=== PATIENT | female | born 1960 | race Caucasian/White ===

== ENCOUNTER 2022-09-19 15:45 | Inpatient (IN) ==
--- NOTE | 2022-09-19 17:05 | XRay Report ---
XR chest 1V not portable HISTORY: Sepsis COMPARISON: Chest 08/29/2022. FINDINGS: No pneumothorax. No pleural effusions. A few bibasilar linear densities persist and favor s ubsegmental atelectasis are scarring. The heart remains mildly enlarged. There is a diffusely elevate d interstitium without focal lung consolidations to suggest a pneumonia. This remains unchanged. Ther e are degenerative changes within the shoulders. IMPRESSION: No significant change compared to the prior study. No acute process. ACT 112: Negative or not required by law. Electronically signed by: Joe Dover M.D. 09/19/2022 5:04 PM
[2022-09-19 17:56] LABS: Basophils # (auto) 0.04 K/uL (0-0.2); Basophils % (auto) 0.4 %; Eosinophils # (auto) 0.16 K/uL (0-0.50); Eosinophils % (auto) 1.7 %; Hematocrit (blood only) 32.8 % (37.0-47.0); Hemoglobin 10.8 g/dl (12.0-16.0); Immature Granulocytes # (auto) 0.04 K/uL (0.01-0.20); Immature Granulocytes % (auto) 0.4 %; Lymphocytes # (auto) 1.09 K/uL (1.2-3.4); Lymphocytes % (auto) 11.7 %; Mean Corpuscular Hemoglobin 30.4 pg (25.0-34.0); Mean Corpuscular Hgb Conc 32.9 g/dL (32.0-36.0); Mean Corpuscular Volume 92.4 fL (80.0-100.0); Monocytes # (auto) 0.57 K/uL (0.11-0.59); Monocytes % (auto) 6.1 %; Neutrophils # (auto) 7.39 K/uL (1.40-6.50); Neutrophils % (auto) 79.7 %; Platelet Count 410 K/uL (130-400); RDW Coefficient of Variation 12.5 % (11.5-14.5); RDW Standard Deviation 41.8 fL (36.4-46.3); Red Blood Count 3.55 M/uL (4.20-5.40); White Blood Count 9.29 K/ul (4.8-10.8)
[2022-09-19 18:03] LABS: Alanine Aminotransferase 26 U/L (7-52); Albumin Level 4.3 gm/dl (3.4-5.0); Alkaline Phosphatase 91 U/L (34-104); Anion Gap 8 (3-11); Aspartate Aminotransferase 30 U/L (13-39); BUN Creatinine Ratio 19.4 (10-20); Bilirubin,Total 0.5 mg/dl (0.2-1.0); Blood Urea Nitrogen 19 mg/dl (6-23); Calcium 10.4 mg/dl (8.6-10.3); Carbon Dioxide 32 mmol/L (21-32); Chloride 93 mmol/L (98-107); Est GFR (African American) 72.2 ml/min; Est GFR (Non-African American) 62.3 ml/min; Globulin 4.1 gm/dl (2.5-4.0); Glucose 101 mg/dl (70-99(Fasting)); Magnesium 1.9 mg/dl (1.7-2.4); Sodium 133 mmol/L (136-145); Total Protein 8.4 gm/dl (6.0-8.3)
[2022-09-19 18:15] LABS: INR 1.1 (0.9-1.1); Partial Thromboplastin Time 27.1 Seconds (21.0-31.0); Prothrombin Time 12.1 Seconds (9.0-12.0)
[2022-09-19] MEDS ORDERED: VANCOMYCIN HCL 2,750 MG in SODIUM CHLORIDE 0.9% 500 ML IV ONE (18:51)
[2022-09-19] MEDS ORDERED: VANCOMYCIN CONSULT ACTIVE PRN (18:51)
[2022-09-19] MEDS ORDERED: cefTRIAXone SODIUM 2,000 MG/70 ML BAG IV STA (18:51)
--- NOTE | 2022-09-19 18:56 | Emergency Department Note ---
Impression & Plan Cellulitis of right leg, Failure of outpatient treatment ED Provider Note Name: PRERNA BAKER Age: 62 Sex: F Arrives Via: Walk-In Informant: Patient ED Provider: Yaakov Reza MD Chief Complaint: Right leg infection Impression: As per impressions above Medical Decision Makin-year-old female with extensive past medical history who had a right knee replacement 2 weeks ago. Initially doing well for the first week and then developed increasing erythema over the right lower leg. Was seen in outside hospital where negative DVT study was done along with starting IV vancomycin and oral amoxicillin/cefoxitin. Continued worsening of erythema and she was seen by her orthopedic surgeon team. She was advised to come to the ER for IV antibiotics and admission. On arrival patient has diffuse erythema of the right leg consistent with cellulitis. She does not have significant pain on range of motion of the right knee there is no drainage from the wound and seems unlikely that the knee itself is infected at this point. Extensive laboratory work-up is unremarkable evidence of sepsis. Given failure of outpatient antibiotics and the degree of cellulitis she has I do agree that hospitalization is indicated. She was given empiric IV antibiotics. She does not require extensive fluid resuscitation at this time. She is comfortable staying in the hospital. Prior Medical Record and Triage/Nursing Notes reviewed by Me External chart reviewed by me including recent hospitalization records and orthopedic notes. Differentials:Cellulitis, DVT, intra-articular infection, sepsis, electrolyte imbalance, allergic reaction, arterial occlusion, many other pathologies considered Vital Signs: reviewed and remarkable for no significant abnormalities Interventions: Vancomycin IV, Rocephin IV Labs:Reviewed and remarkable for no significant abnormalities EKG: As per my interpretation. Indication sepsis concern. Normal sinus rhythm 84 bpm QTc of 432. There is no ectopy nor ischemia. When compared to an EKG of August 29, 2022 there is no significant change. Consults:[place]. [place] [facility] [place] agrees with plan for IV antibiotics and hospitalization. Dr. Castillo of the [facility] service for hospitalization Plan: Disposition:Hospitalization. Condition: Fair History of Present Illness:62-year-old female arrives for evaluation of right leg pain. Patient had a right knee replacement 2 weeks ago at this facility. She notes that she been doing well up until about 4 days ago. Noted increasing right leg swelling, erythema and pain. She was seen at [facility] [place] well or they did an ultrasound of the leg and told her there was no DVT. They gave her a dose of vancomycin and started her on amoxicillin and sent her home to be seen by orthopedics in the next morning. She has been seen by Ortho who advised she come to the ER for IV antibiotics and hospitalization. Patient notes she has a fair amount of pain with ambulation but does not have much pain at rest and took a dose of her Oxy IR about 2 hours ago with good improvement. While laying in bed she denies significant pain. She does note history of some back issues but denies them being any worse than normal. Does not have any fevers, chills, chest pain, shortness of breath abdominal pain, back pain or other concerning signs or symptoms. She said no recent falls, trauma, injuries. Patient denies any specific knee pain per se but rather just the entire leg hurts when she walks around. Past History:Bipolar disorder, aortic stenosis, osteoarthritis, chronic oxygen use, hypertension, sleep apnea, COPD, Vitals:Blood Pressure: 173/71, Pulse 81, RR 22, T 36.8C, O2 94% on 2L NC Physical Exam: GENERAL: Patient is well appearing and in mild distress. RESPIRATORY: No dyspnea. Clear to auscultation and equal bilaterally. No wheeze, no rhonchi. CARDIOVASCULAR: Regular rate and rhythm.No murmurs, rubs, gallops appreciated. GASTROINTESTINAL: Abdomen soft, non-tender, no peritonitis.Bowel sounds positive.No masses appreciated. EXTREMITIES: Swollen erythematous right leg with diffuse cellulitic findings primarily of the right lower leg, knee, right medial thigh. Anterior knee replacement incision with cherry intact no drainage. She has decent range of motion of the right knee without significant pain. Cap refill remains intact distally. She has no crepitus or significant pain to palpation. Palpation of pulses is noted on both sides. NEUROLOGIC: Alert and oriented, no focal neurologic deficit appreciated SKIN: No rash, no jaundice, no diaphoresis. PSYCH: Appropriate GCS: 15 ED Course: Times/Reassessments: Patient stable throughout she declines any pain medications denies any specific knee pain but just discomfort of the leg in general. Agreeable to hospitalization Yaakov Reza MD Past Med/Surg History Medical History (Updated 09/19/22 @ 23:41 by Yaakov Reza MD) Anxiety and depression Aortic stenosis Bicuspid AV- follows with [facility] Cardio Asthma uses rescue inhaler before exertion Bipolar disorder Chronic obstructive pulmonary disease At baseline Chronic pain Degenerative disc disease History of attempted suicide no current problems>follows with mental telehealth>([facility]; [facility]) History of COVID-19 03/2021>hospitalized for 2 weeks at [place] *result of needing oxygen 15/09 Hypertension Hypoglycemia No diabetes or prediabetes per patient Kidney disease follows nephrology in [place]>stage 2 On home oxygen therapy 4l NC Rheumatoid arthritis Follows with rheum- Dr Farrell- Brian Sleep apnea cpap SOB (shortness of breath) on exertion Surgical History (Updated 09/10/22 @ 09:13 by Teodoro Beal PA-C) History of back surgery anterior and posterior lumbar laminectomy and fusion (2 surgeries) History of bunionectomy rt/left History of section X2 History of colonoscopy History of dilatation and curettage History of repair of ACL RIGHT History of tooth extraction Hx of chest tube placement - SPONTANEOUS PNEUMOTHORAX; NO ISSUES SINCE Hx of sinus surgery X 4 Status post total right knee replacement using cement [place] teeth removed Family History Father Family history of diabetes mellitus Other No family history of adverse response to anesthesia Social History Smoking Status: Former smoker Second Hand Exposure: Yes (as a child); Do You Dip or Chew Tobacco: No; Hx Alcohol Use: Yes Alcohol type: hard liquor Preferred Language: Panamanian Communication Ability: Effective Visual Impairment: No Limitations 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 Beliefs That Will Affect Care: None Current Living Situation: Alone Feels Safe at Home: Yes Assistive Devices: Oxygen - Continuous and Walker Allergies Allergies Allergy/AdvReac Type Severity Reaction Status Date / Time levofloxacin [From Levaquin] Allergy Intermediate Rash Verified 09/19/22 19:16 clarithromycin [From Biaxin] AdvReac Mild Gastrointestinal Verified 09/19/22 19:16 Upset lamotrigine [From Lamictal] AdvReac Mild TREMORS Verified 09/19/22 19:16 perphenazine AdvReac Mild TREMORS Verified 09/19/22 19:16 Home Meds Home Medications Medication Instructions Recorded Confirmed montelukast 10 mg tablet 10 mg PO QAM 10/28/17 09/19/22 (Singulair) albuterol sulfate 90 mcg/actuation 1 inh inhalation QID PRN sob 08/19/22 09/19/22 aerosol inhaler aripiprazole 5 mg tablet (Abilify) 5 mg PO QAM 08/19/22 09/19/22 buprenorphine 15 mcg/hour weekly 1 patch transdermal Q7D 08/19/22 09/19/22 transdermal patch calcium carbonate 600 mg-vitamin 1 tab PO BID 08/19/22 09/19/22 D3 5 mcg (200 unit) tablet cholecalciferol (vitamin D3) 50 50 mcg PO BID 08/19/22 09/19/22 mcg (2,000 unit) tablet (Vitamin D3) cyclobenzaprine 10 mg tablet 10 mg PO TID PRN Pain 08/19/22 09/19/22 folic acid 1 mg tablet 5 mg PO QAM 08/19/22 09/19/22 hydroxychloroquine 200 mg tablet See Rx Instructions .Route .COMPLEX 08/19/22 09/19/22 (Plaquenil) immune glob,gamm(IgG) 10 %-pro-IgA IV 08/19/22 0 to 50 mcg/mL intravenous solution (Privigen) irbesartan 300 mg tablet 300 mg PO QAM 08/19/22 09/19/22 levocetirizine 5 mg tablet 5 mg PO HS 08/19/22 09/19/22 magnesium 250 mg tablet 500 mg PO HS 08/19/22 09/19/22 metoprolol succinate 50 mg 100 mg PO QAM 08/19/22 09/19/22 tablet,extended release 24 hr ryuuisin-nvyo-bfde 8 mg-folic 400 1 tab PO QAM 08/19/22 09/19/22 mcg-K 50 mcg-lutein 300 mcg tablet (Multivitamin Women 50 Plus) sulfasalazine 500 mg tablet 1,000 mg PO BID 08/19/22 09/19/22 zinc 50 mg capsule 50 mg PO QAM 08/19/22 09/19/22 hydrochlorothiazide 25 mg tablet 25 mg PO QAM 09/05/22 09/19/22 acetaminophen 500 mg tablet 1,000 mg PO Q8H PRN Pain 09/19/22 09/19/22 (Tylenol Extra Strength) gabapentin 300 mg capsule See Rx Instructions .Route .COMPLEX 09/19/22 09/19/22 gabapentin 600 mg tablet See Rx Instructions .Route .COMPLEX 09/19/22 09/19/22 oxycodone 5 mg tablet 5 mg PO .Q4-6H PRN Pain 09/19/22 09/19/22 rivaroxaban 10 mg tablet (Xarelto) 10 mg PO QAM 09/19/22 09/19/22 venlafaxine 75 mg capsule,extended 75 mg PO DAILY 09/19/22 09/19/22 release 24 hr Previous Rx's Medication Instructions Recorded cefadroxil 500 mg capsule 500 mg PO BID #28 caps 09/10/22 naloxone 4 mg/actuation nasal 1 spray intranasal Q3M PRN opioid 09/10/22 spray (Narcan) overdose #2 ea Results & Data (ED) Vital Signs Vital Signs - 24 hr 09/19/22 16:07 09/19/22 19:13 09/19/22 20:00 Temperature 36.8 C Temperature Source Temporal Artery Scan Pulse Rate 81 Pulse Rate [Apical] 70 Respiratory Rate 22 16 Respiratory Effort / Characteristics Non-Labored Spontaneous Respiratory Depth Normal Blood Pressure 173/71 H Blood Pressure [Right Arm] 150/55 H Blood Pressure Mean 105 Blood Pressure Mean [Right Arm] 86 Pulse Oximetry 94 97 Oxygen Delivery Method Room Air Room Air Room Air Sepsis Recent Fever Within 48 Hours No Sepsis New/Unexplained Change in Mental Status N/A Sepsis Action Taken by Nursing No Action Required 09/19/22 20:18 Temperature Temperature Source Pulse Rate 74 Pulse Rate [Apical] Respiratory Rate Respiratory Effort / Characteristics Respiratory Depth Blood Pressure Blood Pressure [Right Arm] Blood Pressure Mean Blood Pressure Mean [Right Arm] Pulse Oximetry Oxygen Delivery Method Sepsis Recent Fever Within 48 Hours Sepsis New/Unexplained Change in Mental Status Sepsis Action Taken by Nursing Laboratory Data 09/19/22 17:17 09/19/22 17:22 Lab Results 09/19/22 09/19/22 09/19/22 Range/Units 17:17 17:17 17:17 WBC 9.29 (4.8-10.8) K/ul RBC 3.55 L (4.20-5.40) M/uL Hgb 10.8 L (12.0-16.0) g/dl Hct 32.8 L (37.0-47.0) % MCV 92.4 (80.0-100.0) fL MCH 30.4 (25.0-34.0) pg MCHC 32.9 (32.0-36.0) g/dL RDW Std Deviation 41.8 (36.4-46.3) fL RDW Coeff of Paty 12.5 (11.5-14.5) % Plt Count 410 H (130-400) K/uL MPV 9.0 L (9.4-12.4) fL Immature Gran % (Auto) 0.4 % Neut % (Auto) 79.7 % Lymph % (Auto) 11.7 % [place] % (Auto) 6.1 % Eos % (Auto) 1.7 % Baso % (Auto) 0.4 % Neut # (Auto) 7.39 H (1.40-6.50) K/uL Lymph # (Auto) 1.09 L (1.2-3.4) K/uL Caswell # (Auto) 0.57 (0.11-0.59) K/uL Eos # (Auto) 0.16 (0-0.50) K/uL Baso # (Auto) 0.04 (0-0.2) K/uL Immature Gran # (Auto) 0.04 (0.01-0.20) K/uL PT 12.1 H (9.0-12.0) Seconds INR 1.1 (0.9-1.1) APTT 27.1 (21.0-31.0) Seconds PTT Ratio 1.0 Sodium (136-145) mmol/L Potassium (3.5-5.1) mmol/L Chloride (98-107) mmol/L Carbon Dioxide (21-32) mmol/L Anion Gap (3-11) BUN (6-23) mg/dl Creatinine (0.6-1.2) mg/dl Est Cr Clr Drug Dosing Est GFR ( Amer) ml/min Est GFR (Non-Af Amer) ml/min BUN/Creatinine Ratio (10-20) Glucose (70-99(Fasting)) mg/dl Lactate 1.4 (0.4-2.0) mmol/L Calcium (8.6-10.3) mg/dl Magnesium (1.7-2.4) mg/dl Total Bilirubin (0.2-1.0) mg/dl AST (13-39) U/L ALT (7-52) U/L Alkaline Phosphatase (34-104) U/L Troponin I High Sens (0-14) pg/ml Total Protein (6.0-8.3) gm/dl Albumin (3.4-5.0) gm/dl Globulin (2.5-4.0) gm/dl Albumin/Globulin Ratio (0.9-2) Procalcitonin (0-0.5) ng/ml SARS-CoV-2, RNA, NAAT (NEGATIVE) 09/19/22 09/19/22 09/19/22 Range/Units 17:17 17:22 19:16 WBC (4.8-10.8) K/ul RBC (4.20-5.40) M/uL Hgb (12.0-16.0) g/dl Hct (37.0-47.0) % MCV (80.0-100.0) fL MCH (25.0-34.0) pg MCHC (32.0-36.0) g/dL RDW Std Deviation (36.4-46.3) fL RDW Coeff of Paty (11.5-14.5) % Plt Count (130-400) K/uL MPV (9.4-12.4) fL Immature Gran % (Auto) % Neut % (Auto) % Lymph % (Auto) % [place] % (Auto) % Eos % (Auto) % Baso % (Auto) % Neut # (Auto) (1.40-6.50) K/uL Lymph # (Auto) (1.2-3.4) K/uL Caswell # (Auto) (0.11-0.59) K/uL Eos # (Auto) (0-0.50) K/uL Baso # (Auto) (0-0.2) K/uL Immature Gran # (Auto) (0.01-0.20) K/uL PT (9.0-12.0) Seconds INR (0.9-1.1) APTT (21.0-31.0) Seconds PTT Ratio Sodium 133 L (136-145) mmol/L Potassium 4.0 (3.5-5.1) mmol/L Chloride 93 L (98-107) mmol/L Carbon Dioxide 32 (21-32) mmol/L Anion Gap 8 (3-11) BUN 19 (6-23) mg/dl Creatinine 0.98 (0.6-1.2) mg/dl Est Cr Clr Drug Dosing Not Reportable Est GFR ( Amer) 72.2 ml/min Est GFR (Non-Af Amer) 62.3 ml/min BUN/Creatinine Ratio 19.4 (10-20) Glucose 101 H (70-99(Fasting)) mg/dl Lactate (0.4-2.0) mmol/L Calcium 10.4 H (8.6-10.3) mg/dl Magnesium 1.9 (1.7-2.4) mg/dl Total Bilirubin 0.5 (0.2-1.0) mg/dl AST 30 (13-39) U/L ALT 26 (7-52) U/L Alkaline Phosphatase 91 (34-104) U/L Troponin I High Sens 5.0 (0-14) pg/ml Total Protein 8.4 H (6.0-8.3) gm/dl Albumin 4.3 (3.4-5.0) gm/dl Globulin 4.1 H (2.5-4.0) gm/dl Albumin/Globulin Ratio 1.0 (0.9-2) Procalcitonin < 0.05 (0-0.5) ng/ml SARS-CoV-2, RNA, NAAT NEGATIVE (NEGATIVE) Administered Medications Morphine Sulfate (Morphine Sulfate 2 Mg/Ml Carp) 2 mg IV Q4H PRN PRN Reason: Pain(5+) Stop: 10/03/22 21:16 Last Admin: 09/19/22 23:23 Dose: 2 mg Documented By: AURELIO Discontinued Medications Vancomycin HCl 2,750 mg/ (Sodium Chloride) 555 mls @ 200 mls/hr IV NOW ONE Stop: 09/19/22 21:20 Last Admin: 09/19/22 19:27 Dose: 200 mls/hr Documented By: WCS Ceftriaxone Sodium (Rocephin) 2,000 mg in 70 mls @ 140 mls/hr IV NOW STA Stop: 09/19/22 19:20 Last Infusion: 09/19/22 22:43 Dose: 0 mls/hr Documented By: Admin: 09/19/22 19:05 Dose: 140 mls/hr Documented By: SUMA Miscellaneous (Patient's Height &/Or Weight Needed) 1 each N/A ONE STA Stop: 09/19/22 21:25 Last Admin: 09/19/22 21:30 Dose: 1 each Documented By: WCS Imaging Data Radiologist's Impression: Chest X-Ray 09/19/22 16:12 XR chest 1V not portable HISTORY: Sepsis COMPARISON: Chest 08/29/2022. FINDINGS: No pneumothorax. No pleural effusions. A few bibasilar linear densities persist and favor subsegmental atelectasis are scarring. The heart remains mildly enlarged. There is a diffusely elevated interstitium without focal lung consolidations to suggest a pneumonia. This remains unchanged. There are degenerative changes within the shoulders. IMPRESSION: No significant change compared to the prior study. No acute process. ACT 112: Negative or not required by law. Electronically signed by: Joe Dover M.D. 09/19/2022 5:04 PM Discharge Plan Visit Data Chief Complaint: Infection, Wound Stated Complaint: KNEE REPLACEMENT INFECTED; REF BY DOC ED Provider: Yaakov Reza Discharge Problem: Cellulitis of right leg, Failure of outpatient treatment Patient Disposition: Admitted As Inpatient Discharge Instructions Interventions: ED Discharge Assessment Last Done: 09/19/22 21:40
--- NOTE | 2022-09-19 20:34 | History & Physical Report ---
Date of Service September 19, 2022 Assessment & Plan (1) Cellulitis of right leg: Plan: -Admit to med/surge -Currently stable -Started to develop erythema, swelling and tenderness of the RLE on 09/16 -Has continued to progress, was seen in [facility] ED on 09/17 and was given IV antibiotics, discharged on amoxicillin -Patient confirmed multiple times that she was told her RLE Venous Doppler was negative for DVT, has not missed a dose of Xarelto -S/P Vancomycin and Ceftriaxone in the ED -Will switch her to Daptomycin and Cefepime due to increased BMI and immunocompromised status -Hold Sulfasalazine and Plaquenil while treating acute infection -Follow blood cultures -If she were to acutely decompensation or RLE would become acutely more severe would obtain STAT CT of the RLE with contrast -Orthopedics consulted, no plans for emergent OR, continue IV abx -Continue xrarelto for DVT PPX -Will continue home Butrans patch with IV morphine PRN for severe pain -PRN narcan ordered for narcotic overdose - diet -AM CBC, BMP, PT/INR (2) Chronic pain: Plan: -Continue home Butrans patch, changed q7Days (today is day # 2) -Continue gabapentin -Tylenol for mild pain and fever -PRN IV morphine for severe pain (3) Status post total right knee replacement using cement: Plan: -Seen in ortho clinic today -Surgical site appears intact and without drainage -Ortho consult placed (4) Bipolar disorder: Plan: -Continue abilify (5) Rheumatoid arthritis: Plan: -Hold sulfasalazine and Plaquenil for now (6) Hypertension: Plan: -Stable -Continue HCTZ and metoprolol (7) Sleep apnea: Plan: -HS CPAP ordered (8) Chronic obstructive pulmonary disease: Plan: -On baseline 4L NC -Continue O2 at 4L NC for goal SpO2 of 88-92% Plan The patient was discussed with Dr. Castillo at the time of the adsmission History of Present Illness Chief Complaint: concern for cellulitis Primary Care Provider: Allegra BradySondra Little is a 62yo female with PMHx significant for COPD (on chronic O2, 4L since COVID infection), MAGNOLIA, bicuspic aortic valve, HTN, RA, bipolar disorder, and S/P Right Total Knee Arthroplasty(Right), removal deep hardware(peek interference screw) from previous ACL repair with Dr. Jacobsen on 09/08 who presented to the [facility] ED at the recommendation of the Orthopedic clinic due to concerns for RLE infection. In the ED vitals were stable. Labs were significant for a platelet count of 410, sodium of 133, negative procal and covid 19 negative. Chest xray was read as "No significant change compared to the prior study. No acute process.". The ED staff spoke with Orthopedic Surgery who recently evaluated the patient. No concerns for intraarticular infection at this time, does not recommend additional imaging for now. Recommends IV antibiotics, they will continue to follow. Prior to admission the patient was given a dose of Vancomycin and ceftriaxone. At the time of the exam the patient was lying in bed in no acute distress. She states that she had been doing well post-op and had been taking her Xarelto for DVT PPX and Cefadroxil since her initial discharge. Starting on 09/16 the patient started to develop progressively worsening erythema, warm, and tenderness of the RLE. She states that as of today the erythema had spread up to her right mid thigh. She went to the [facility] ED on 09/17 where they gave her a dose of Vancomycin and another antibiotic she cannot remember the name of. She confirmed that they obtained a RLE venous doppler at that visit which was negative. They discharged her on Amoxicillin at that time. She was seen today in the Orthopedic clinic, due to concerns for progressively worsening cellulitis she was sent to the ED. She denies recent fever, chills,chest pain, SOB, abd pain, nausea, vomiting, diarrhea, paresthesias, dysuria, hematuria, melena, and recent trauma. She is a full code and would want her daughter to make medical decisions for her if she cannot make them herself. Please refer to Dr. Castillo's attestation for any changes to the treatment plan Allergies Allergy/AdvReac Type Severity Reaction Status Date / Time levofloxacin [From Levaquin] Allergy Intermediate Rash Verified 09/19/22 19:16 clarithromycin [From Biaxin] AdvReac Mild Gastrointestinal Verified 09/19/22 19:16 Upset lamotrigine [From Lamictal] AdvReac Mild TREMORS Verified 09/19/22 19:16 perphenazine AdvReac Mild TREMORS Verified 09/19/22 19:16 Home Medications Medication Instructions Recorded Confirmed Type montelukast 10 mg tablet 10 mg PO QAM 10/28/17 09/19/22 History (Singulair) albuterol sulfate 90 mcg/actuation 1 inh inhalation QID PRN sob 08/19/22 09/19/22 History aerosol inhaler aripiprazole 5 mg tablet (Abilify) 5 mg PO QAM 08/19/22 09/19/22 History buprenorphine 15 mcg/hour weekly 1 patch transdermal Q7D 08/19/22 09/19/22 History transdermal patch calcium carbonate 600 mg-vitamin 1 tab PO BID 08/19/22 09/19/22 History D3 5 mcg (200 unit) tablet cholecalciferol (vitamin D3) 50 50 mcg PO BID 08/19/22 09/19/22 History mcg (2,000 unit) tablet (Vitamin D3) cyclobenzaprine 10 mg tablet 10 mg PO TID PRN Pain 08/19/22 09/19/22 History folic acid 1 mg tablet 5 mg PO QAM 08/19/22 09/19/22 History hydroxychloroquine 200 mg tablet See Rx Instructions .Route .COMPLEX 08/19/22 09/19/22 History (Plaquenil) immune glob,gamm(IgG) 10 %-pro-IgA IV 08/19/22 History 0 to 50 mcg/mL intravenous solution (Privigen) irbesartan 300 mg tablet 300 mg PO QAM 08/19/22 09/19/22 History levocetirizine 5 mg tablet 5 mg PO HS 08/19/22 09/19/22 History magnesium 250 mg tablet 500 mg PO HS 08/19/22 09/19/22 History metoprolol succinate 50 mg 100 mg PO QAM 08/19/22 09/19/22 History tablet,extended release 24 hr [id number] 8 mg-folic 400 1 tab PO QAM 08/19/22 09/19/22 History mcg-K 50 mcg-lutein 300 mcg tablet (Multivitamin Women 50 Plus) sulfasalazine 500 mg tablet 1,000 mg PO BID 08/19/22 09/19/22 History zinc 50 mg capsule 50 mg PO QAM 08/19/22 09/19/22 History hydrochlorothiazide 25 mg tablet 25 mg PO QAM 09/05/22 09/19/22 History naloxone 4 mg/actuation nasal 1 spray intranasal Q3M PRN opioid 09/10/22 09/19/22 Rx spray (Narcan) overdose #2 ea acetaminophen 500 mg tablet 1,000 mg PO Q8H PRN Pain 09/19/22 09/19/22 History (Tylenol Extra Strength) gabapentin 300 mg capsule See Rx Instructions .Route .COMPLEX 09/19/22 09/19/22 History gabapentin 600 mg tablet See Rx Instructions .Route .COMPLEX 09/19/22 09/19/22 History oxycodone 5 mg tablet 5 mg PO .Q4-6H PRN Pain 09/19/22 09/19/22 History rivaroxaban 10 mg tablet (Xarelto) 10 mg PO QAM 09/19/22 09/19/22 History venlafaxine 75 mg capsule,extended 75 mg PO DAILY 09/19/22 09/19/22 History release 24 hr linezolid 600 mg tablet 600 mg PO BID 5 days #10 tabs 09/23/22 Rx sennosides 8.6 mg-docusate sodium 1 tab PO QAM #30 tabs 09/24/22 Rx 50 mg tablet (Senokot-S) Past Med/Surg History Medical History Anxiety and depression Aortic stenosis Bicuspid AV- follows with [facility] Cardio Asthma uses rescue inhaler before exertion Bipolar disorder Chronic obstructive pulmonary disease At baseline Chronic pain Degenerative disc disease History of attempted suicide no current problems>follows with mental telehealth>([facility]; [facility]) History of COVID-19 03/2021>hospitalized for 2 weeks at [facility] *result of needing oxygen 15/09 Hypertension Hypoglycemia No diabetes or prediabetes per patient Kidney disease follows nephrology in [place]>stage 2 On home oxygen therapy 4l NC Rheumatoid arthritis Follows with rheum- Dr Farrell- Brian Sleep apnea cpap SOB (shortness of breath) on exertion Surgical History History of back surgery anterior and posterior lumbar laminectomy and fusion (2 surgeries) History of bunionectomy rt/left History of section X2 History of colonoscopy History of dilatation and curettage History of repair of ACL RIGHT History of tooth extraction Hx of chest tube placement - SPONTANEOUS PNEUMOTHORAX; NO ISSUES SINCE Hx of sinus surgery X 4 Status post total right knee replacement using cement [place] teeth removed Family History Father Family history of diabetes mellitus Other No family history of adverse response to anesthesia Social History Smoking Status: Never smoker Second Hand Exposure: Yes (as a child); Do You Dip or Chew Tobacco: No; Hx Alcohol Use: No Hx Substance Use: No Preferred Language: [place] Communication Ability: Effective Visual Impairment: No Limitations Rn Angiography Required: No Beliefs That Will Affect Care: None Current Living Situation: Alone Feels Safe at Home: Yes Assistive Devices: Cane, Oxygen - Continuous and Walker Physical Exam Physical Exam: Physical Exam: General: In no acute distress, stated age, chronically ill appearing but non- toxic HEENT: Normocephalic, atraumatic, no scleral icterus, pupils around round, symmetrical, and reactive to light, moist mucus membranes, trachea midline, no thyromegaly Chest/Pulm: No respiratory distress, symmetrical chest expansion, distant breath sounds Cardiac: RRR, systolic murmur noted Abdomen: Negative for ascites and bruising, normoactive bowel sounds, soft, non-tender to palpation throughout Musculoskeletal: Right knee surgical site appears intact and without signs of drainage, no fluctuance or effusion around the right knee Extremities: Radial, dorsalis pedis, and posterior tibial pulses are intact and symmetrical, RLE currently more swollen than the left Skin: Erythema of the RLE running from the right distal foot up to the mid thigh, skin is warm to the touch Neuro: Alert and oriented to person, place, month, year, and president, no focal defects, no tremors noted Psych: No acute distress, calm and cooperative during the exam Results & Data Results & Data Vital Signs (Past 12 Hours) Vital Signs Temp Pulse Pulse Resp BP BP Pulse Ox 09/19/22 20:18 74 09/19/22 20:00 09/19/22 19:13 70 16 150/55 H 97 09/19/22 16:07 36.8 C 81 22 173/71 H 94 O2 Del Method 09/19/22 20:18 09/19/22 20:00 Room Air 09/19/22 19:13 Room Air 09/19/22 16:07 Room Air Laboratory Results Abnormal lab results 09/19/22 09/19/22 09/19/22 Range/Units 17:17 17:17 17:22 RBC 3.55 L (4.20-5.40) M/uL Hgb 10.8 L (12.0-16.0) g/dl Hct 32.8 L (37.0-47.0) % Plt Count 410 H (130-400) K/uL MPV 9.0 L (9.4-12.4) fL Neut # (Auto) 7.39 H (1.40-6.50) K/uL Lymph # (Auto) 1.09 L (1.2-3.4) K/uL PT 12.1 H (9.0-12.0) Seconds Sodium 133 L (136-145) mmol/L Chloride 93 L (98-107) mmol/L Glucose 101 H (70-99(Fasting)) mg/dl Calcium 10.4 H (8.6-10.3) mg/dl Total Protein 8.4 H (6.0-8.3) gm/dl Globulin 4.1 H (2.5-4.0) gm/dl Diagnostic Findings Chest X-Ray 09/19/22 16:12 XR chest 1V not portable HISTORY: Sepsis COMPARISON: Chest 08/29/2022. FINDINGS: No pneumothorax. No pleural effusions. A few bibasilar linear densities persist and favor subsegmental atelectasis are scarring. The heart remains mildly enlarged. There is a diffusely elevated interstitium without focal lung consolidations to suggest a pneumonia. This remains unchanged. There are degenerative changes within the shoulders. IMPRESSION: No significant change compared to the prior study. No acute process. ACT 112: Negative or not required by law. Electronically signed by: Joe Dover M.D. 09/19/2022 5:04 PM ECG Additional Comments: Normal sinus rhythm Normal ECG When compared with ECG of 29-AUG-2022 12:04, No significant change was found Code Status & VTE Plan Code Status Full code VTE Prophylaxis Plan VTE Prophylaxis will be ordered: Yes Supervising Physician Co-Signing Physician Notes Patient seen and examined, chart reviewed, case discussed with Donte Shaver PA-C and I agree with the assessment and plan as above except as otherwise noted Labs and images reviewed Florencia is seen at the bedside. Has history of COPD on chronic oxygen, hypertension, RA, MAGNOLIA, and history of right knee arthroplasty, prior ACL repair, with interference screw removal with Dr. Hamilton 09/08 who presents for right lower extremity cellulitis. Patient has been on cefadroxil for antibiotic prophylaxis and Xarelto for DVT prophylaxis since her procedure. Over the last 4 days she has had worsening and spreading erythema, warmth, and tenderness of her right lower extremity which is now up to her mid thigh. This did not improve with an outpatient dose of vancomycin at OSH. She has not had fever/chills/sweats/chest pain. She does not have a leukocytosis. CRP is elevated, procalcitonin is negative. Patient had been seen in Ortho office as an outpatient prior. Case was reviewed with Ortho, additional imaging not recommended at this time. Will broaden antibiotics given immunosuppression and failing outpatient treatment, continue daptomycin and cefepime at this time. CRP is trended. PG Care Time/CCT Total # of Minutes Spent Total Time Spent with Patient: Total time spent is greater than 50% in coordination of care (as documented) at patient's floor/unit and/or counseling patient: C[place] [address] INT INP/OBS CARE 3/75MIN Patient Type Established Medical Decision Making High Complexity Diagnoses Cellulitis of right leg L03.115 Chronic pain G89.29 Status post total right knee replacement using cement Z96.651 Bipolar disorder F31.9 Rheumatoid arthritis M06.9 Hypertension I10 Sleep apnea G47.30 Chronic obstructive pulmonary disease J44.9
[2022-09-19] MEDS ORDERED: NALOXONE HCL 0.4 MG/1 ML VIAL/CARP IV PRN (21:17)
[2022-09-19] MEDS ORDERED: CEFEPIME 20 ML IV STA (21:21)
[2022-09-19] MEDS ORDERED: Patient's HEIGHT &/or WEIGHT Needed STA (21:24)
[2022-09-19] MEDS ORDERED: ALBUTEROL HFA 8 GM INHALER INH PRN (22:40)
[2022-09-19] MEDS: MoRPHine SULFATE 2 MG/ML CARP IV PRN (23:23)
[2022-09-19] MEDS: GABAPENTIN 300 MG CAP PO SCH (23:35)
[2022-09-19] MEDS: GABAPENTIN 600 MG TAB PO SCH (23:35)
[2022-09-19] MEDS: MAGNESIUM OXIDE 400 MG TAB PO SCH (23:36)
[2022-09-19 23:37] LABS: C Reactive Protein 9.01 mg/dl (0-0.5)
[2022-09-20] MEDS: POLYETHYLENE (MIRALAX) 17 GM PACK PO PRN (00:43)
[2022-09-20 02:02] LABS: Appearance Urine Clear (Clear); Bilirubin Urine Negative (Negative); Blood Urine Negative (Negative); Color Urine Yellow; Glucose Urine UA Negative (Negative); Ketones Urine Negative (Negative); Leukocyte Esterase Urine Negative (Negative); Nitrite Urine Negative (Negative); Protein Urine Negative (Negative); Specific Gravity Urine 1.013 (1.000-1.030); Urobilinogen Urine Negative (Negative)
[2022-09-20] MEDS: DAPTOmycin 325 MG in SYRINGE 0 ML IV SCH (05:08)
[2022-09-20] MEDS: MoRPHine SULFATE 2 MG/ML CARP IV PRN (05:35)
[2022-09-20 06:18] LABS: Basophils # (auto) 0.04 K/uL (0-0.2); Basophils % (auto) 0.7 %; Eosinophils # (auto) 0.14 K/uL (0-0.50); Eosinophils % (auto) 2.5 %; Hematocrit (blood only) 28.1 % (37.0-47.0); Hemoglobin 9.3 g/dl (12.0-16.0); Immature Granulocytes # (auto) 0.02 K/uL (0.01-0.20); Immature Granulocytes % (auto) 0.4 %; Lymphocytes # (auto) 0.83 K/uL (1.2-3.4); Lymphocytes % (auto) 14.7 %; Mean Corpuscular Hemoglobin 30.9 pg (25.0-34.0); Mean Corpuscular Hgb Conc 33.1 g/dL (32.0-36.0); Mean Corpuscular Volume 93.4 fL (80.0-100.0); Monocytes # (auto) 0.46 K/uL (0.11-0.59); Monocytes % (auto) 8.1 %; Neutrophils # (auto) 4.16 K/uL (1.40-6.50); Neutrophils % (auto) 73.6 %; Platelet Count 349 K/uL (130-400); RDW Coefficient of Variation 12.4 % (11.5-14.5); RDW Standard Deviation 42.3 fL (36.4-46.3); Red Blood Count 3.01 M/uL (4.20-5.40); White Blood Count 5.65 K/ul (4.8-10.8)
[2022-09-20 06:26] LABS: BUN Creatinine Ratio 18.4 (10-20); Calcium 9.2 mg/dl (8.6-10.3); Creatinine Clr Calc Pharmacy 83.6 ml/min; Est GFR (African American) 83.3 ml/min; Est GFR (Non-African American) 71.9 ml/min; Potassium 3.9 mmol/L (3.5-5.1)
[2022-09-20 06:37] LABS: INR 1.1 (0.9-1.1); Prothrombin Time 12.2 Seconds (9.0-12.0)
--- NOTE | 2022-09-20 08:05 | Hospitalist Progress Note ---
Date of Service September 20, 2022 Assessment & Plan (1) Cellulitis of right leg: Plan: Developed cellulitis following her TKA 09/08 (outside hospital NEGATIVE US VENOUS Doppler reported, never missed dose Xarelto) GIven IV abx at [facility] ER on 09/17 and dc on Amoxicillin with progression of cellulitis In ER, given Vanco/Rocephin Switched to Dapto/Cefepime due to BMI/immunocompromised state (had been off her plaquenil since prior surgery to note, was going to resume but hadn't yet -- holding given acute infection as discussed w/ patient) WBC wnl, afebrile Monitor blood cultures Erythema/swelling reported much improved Pain control, antiemetics Ortho consulted - not felt infection to knee, patient also denied any drainage from her knee/etc to note If continued improvement and blood cultures negative at LEAST 48 hours, likely dc for Thursday per orthopedics PT/OT consults ordered DVT proph: Xarelto (2) Chronic pain: Plan: Continue home Butrans patch, changed q7Days (today is day # 3) Continue gabapentin Tylenol for mild pain and fever , IV morphine severe pain Of note, was doing well on PO Oxycodone and not wanting to use morphine --> or thopedics already ordered oral option and will continue Bowel regimen added/to continue. monitor for any issues (3) Status post total right knee replacement using cement: Plan: -Surgical site appears intact and without drainage -Ortho consult placed as above (4) Bipolar disorder: Plan: -Continue abilify (5) Rheumatoid arthritis: Plan: -Hold sulfasalazine and Plaquenil for now -- discussed w/ patient would not resume until discussed w/ rheumatology AFTER her infection has resolved (6) Hypertension: Plan: Stable Continue HCTZ and metoprolol (7) Sleep apnea: Plan: HS CPAP ordered (8) Chronic obstructive pulmonary disease: Plan: -On baseline 4L NC but uses 3L at rest -Continue O2 at 4L NC for goal SpO2 of 88-92% Plan continued inpatient stay through Thursday, IV abx continued. Dc after blood cultures negative x 48 hours on oral Admission and Anticipated Discharge Date Admission Date: September 19, 2022 Supervising Physician Co-Signing Physician Notes The patient was not seen by me. The chart was reviewed. Case discussed with TARA Kaba. Agree with assessment and plan Subjective Eval this morning. Doing alright, redness much improved. Did not have any drainage from her incision. Confirmed she had not taken her plaquenil after discharge last time. No chest pain/shortness of breath. Not having a great bowel movement in a couple days but belly is gurgling. Bowel regimen ordered. Pain meds to added oxycodone by ortho as had been tolerating well at home and wanting to limit morphine. Anticipating hopeful dc Thursday if blood cultures negative. She is going to call ahead to arrange ride for around 01/23 and can cancel if any issues. Physical Exam Physical Exam: General: WD/WN obese female sitting up in bed, NAD HEENT: head normocephalic, atraumatic, mmm, trachea midline Resp: diminished in the bases, no w/c/r, on baseline 3L NC CV: RRR, +systolic murmur, edema to RLE from cellulitis (reported much improved), decreased tenderness, slight warmth GI: +BS, soft/NT : no jean MSK/Neuro:R TKA cherry in place, no active drainage. decreased swelling and erythema reported, decreased pain. minimal pain w/ ROM, sensation intact Psych: AOx3, cooperative with exam Results & Data Results & Data Vital Signs (Past 12 Hours) Vital Signs Temp Pulse Pulse Pulse Resp BP BP 09/20/22 07:37 37.1 C 76 18 137/75 09/19/22 22:20 09/19/22 22:20 09/19/22 22:20 09/19/22 22:20 37.3 C 81 16 165/76 H 09/19/22 21:40 78 16 150/55 H 09/19/22 21:30 78 16 150/65 H 09/19/22 21:00 88 16 150/55 H 09/19/22 20:18 74 Pulse Ox Pulse Ox O2 Del Method O2 Del Method O2 Flow Rate O2 Flow Rate 09/20/22 07:37 96 Nasal Cannula 3 09/19/22 22:20 Nasal Cannula 3 09/19/22 22:20 Nasal Cannula 3 09/19/22 22:20 94 Nasal Cannula 3 09/19/22 22:20 94 Nasal Cannula 3 09/19/22 21:40 98 Room Air 09/19/22 21:30 98 Room Air 09/19/22 21:00 09/19/22 20:18 Laboratory Results 09/20/22 09/20/22 09/20/22 Range/Units 05:21 05:21 05:21 WBC 5.65 (4.8-10.8) K/ul RBC 3.01 L (4.20-5.40) M/uL Hgb 9.3 L (12.0-16.0) g/dl Hct 28.1 L (37.0-47.0) % MCV 93.4 (80.0-100.0) fL MCH 30.9 (25.0-34.0) pg MCHC 33.1 (32.0-36.0) g/dL RDW Std Deviation 42.3 (36.4-46.3) fL RDW Coeff of Paty 12.4 (11.5-14.5) % Plt Count 349 (130-400) K/uL MPV 9.0 L (9.4-12.4) fL Immature Gran % (Auto) 0.4 % Neut % (Auto) 73.6 % Lymph % (Auto) 14.7 % [place]cho % (Auto) 8.1 % Eos % (Auto) 2.5 % Baso % (Auto) 0.7 % Neut # (Auto) 4.16 (1.40-6.50) K/uL Lymph # (Auto) 0.83 L (1.2-3.4) K/uL [place]cho # (Auto) 0.46 (0.11-0.59) K/uL Eos # (Auto) 0.14 (0-0.50) K/uL Baso # (Auto) 0.04 (0-0.2) K/uL Immature Gran # (Auto) 0.02 (0.01-0.20) K/uL ESR (0-30) mm/hr PT 12.2 H (9.0-12.0) Seconds INR 1.1 (0.9-1.1) APTT (21.0-31.0) Seconds PTT Ratio Sodium 136 (136-145) mmol/L Potassium 3.9 (3.5-5.1) mmol/L Chloride 99 (98-107) mmol/L Carbon Dioxide 29 (21-32) mmol/L Anion Gap 8 (3-11) BUN 16 (6-23) mg/dl Creatinine 0.87 (0.6-1.2) mg/dl Est Cr Clr Drug Dosing 83.6 Est GFR ( Amer) 83.3 ml/min Est GFR (Non-Af Amer) 71.9 ml/min BUN/Creatinine Ratio 18.4 (10-20) Glucose 107 H (70-99(Fasting)) mg/dl Lactate (0.4-2.0) mmol/L Calcium 9.2 (8.6-10.3) mg/dl Magnesium 2.0 (1.7-2.4) mg/dl Total Bilirubin (0.2-1.0) mg/dl AST (13-39) U/L ALT (7-52) U/L Alkaline Phosphatase (34-104) U/L Troponin I High Sens (0-14) pg/ml C-Reactive Protein (0-0.5) mg/dl Total Protein (6.0-8.3) gm/dl Albumin (3.4-5.0) gm/dl Globulin (2.5-4.0) gm/dl Albumin/Globulin Ratio (0.9-2) Procalcitonin (0-0.5) ng/ml Urine Color Urine Appearance (Clear) Urine pH (4.5-7.5) Ur Specific [place] (1.000-1.030) Urine Protein (Negative) Urine Glucose (UA) (Negative) Urine Ketones (Negative) Urine Blood (Negative) Urine Nitrite (Negative) Urine Bilirubin (Negative) Urine Urobilinogen (Negative) Ur Leukocyte Esterase (Negative) SARS-CoV-2, RNA, NAAT (NEGATIVE) 09/20/22 09/19/22 09/19/22 Range/Units 01:25 23:17 19:16 WBC (4.8-10.8) K/ul RBC (4.20-5.40) M/uL Hgb (12.0-16.0) g/dl Hct (37.0-47.0) % MCV (80.0-100.0) fL MCH (25.0-34.0) pg MCHC (32.0-36.0) g/dL RDW Std Deviation (36.4-46.3) fL RDW Coeff of Paty (11.5-14.5) % Plt Count (130-400) K/uL MPV (9.4-12.4) fL Immature Gran % (Auto) % Neut % (Auto) % Lymph % (Auto) % [place] % (Auto) % Eos % (Auto) % Baso % (Auto) % Neut # (Auto) (1.40-6.50) K/uL Lymph # (Auto) (1.2-3.4) K/uL [place] # (Auto) (0.11-0.59) K/uL Eos # (Auto) (0-0.50) K/uL Baso # (Auto) (0-0.2) K/uL Immature Gran # (Auto) (0.01-0.20) K/uL ESR 71 H (0-30) mm/hr PT (9.0-12.0) Seconds INR (0.9-1.1) APTT (21.0-31.0) Seconds PTT Ratio Sodium (136-145) mmol/L Potassium (3.5-5.1) mmol/L Chloride (98-107) mmol/L Carbon Dioxide (21-32) mmol/L Anion Gap (3-11) BUN (6-23) mg/dl Creatinine (0.6-1.2) mg/dl Est Cr Clr Drug Dosing Est GFR ( Amer) ml/min Est GFR (Non-Af Amer) ml/min BUN/Creatinine Ratio (10-20) Glucose (70-99(Fasting)) mg/dl Lactate (0.4-2.0) mmol/L Calcium (8.6-10.3) mg/dl Magnesium (1.7-2.4) mg/dl Total Bilirubin (0.2-1.0) mg/dl AST (13-39) U/L ALT (7-52) U/L Alkaline Phosphatase (34-104) U/L Troponin I High Sens (0-14) pg/ml C-Reactive Protein (0-0.5) mg/dl Total Protein (6.0-8.3) gm/dl Albumin (3.4-5.0) gm/dl Globulin (2.5-4.0) gm/dl Albumin/Globulin Ratio (0.9-2) Procalcitonin (0-0.5) ng/ml Urine Color Yellow Urine Appearance Clear (Clear) Urine pH 7.0 (4.5-7.5) Ur Specific [place] 1.013 (1.000-1.030) Urine Protein Negative (Negative) Urine Glucose (UA) Negative (Negative) Urine Ketones Negative (Negative) Urine Blood Negative (Negative) Urine Nitrite Negative (Negative) Urine Bilirubin Negative (Negative) Urine Urobilinogen Negative (Negative) Ur Leukocyte Esterase Negative (Negative) SARS-CoV-2, RNA, NAAT NEGATIVE (NEGATIVE) 09/19/22 09/19/22 09/19/22 Range/Units 17:22 17:17 17:17 WBC (4.8-10.8) K/ul RBC (4.20-5.40) M/uL Hgb (12.0-16.0) g/dl Hct (37.0-47.0) % MCV (80.0-100.0) fL MCH (25.0-34.0) pg MCHC (32.0-36.0) g/dL RDW Std Deviation (36.4-46.3) fL RDW Coeff of Paty (11.5-14.5) % Plt Count (130-400) K/uL MPV (9.4-12.4) fL Immature Gran % (Auto) % Neut % (Auto) % Lymph % (Auto) % Concho % (Auto) % Eos % (Auto) % Baso % (Auto) % Neut # (Auto) (1.40-6.50) K/uL Lymph # (Auto) (1.2-3.4) K/uL [place] # (Auto) (0.11-0.59) K/uL Eos # (Auto) (0-0.50) K/uL Baso # (Auto) (0-0.2) K/uL Immature Gran # (Auto) (0.01-0.20) K/uL ESR (0-30) mm/hr PT 12.1 H (9.0-12.0) Seconds INR 1.1 (0.9-1.1) APTT 27.1 (21.0-31.0) Seconds PTT Ratio 1.0 Sodium 133 L (136-145) mmol/L Potassium 4.0 (3.5-5.1) mmol/L Chloride 93 L (98-107) mmol/L Carbon Dioxide 32 (21-32) mmol/L Anion Gap 8 (3-11) BUN 19 (6-23) mg/dl Creatinine 0.98 (0.6-1.2) mg/dl Est Cr Clr Drug Dosing Not Reportable Est GFR ( Amer) 72.2 ml/min Est GFR (Non-Af Amer) 62.3 ml/min BUN/Creatinine Ratio 19.4 (10-20) Glucose 101 H (70-99(Fasting)) mg/dl Lactate (0.4-2.0) mmol/L Calcium 10.4 H (8.6-10.3) mg/dl Magnesium 1.9 (1.7-2.4) mg/dl Total Bilirubin 0.5 (0.2-1.0) mg/dl AST 30 (13-39) U/L ALT 26 (7-52) U/L Alkaline Phosphatase 91 (34-104) U/L Troponin I High Sens 5.0 (0-14) pg/ml C-Reactive Protein 9.01 H (0-0.5) mg/dl Total Protein 8.4 H (6.0-8.3) gm/dl Albumin 4.3 (3.4-5.0) gm/dl Globulin 4.1 H (2.5-4.0) gm/dl Albumin/Globulin Ratio 1.0 (0.9-2) Procalcitonin < 0.05 (0-0.5) ng/ml Urine Color Urine Appearance (Clear) Urine pH (4.5-7.5) Ur Specific [place] (1.000-1.030) Urine Protein (Negative) Urine Glucose (UA) (Negative) Urine Ketones (Negative) Urine Blood (Negative) Urine Nitrite (Negative) Urine Bilirubin (Negative) Urine Urobilinogen (Negative) Ur Leukocyte Esterase (Negative) SARS-CoV-2, RNA, NAAT (NEGATIVE) 09/19/22 09/19/22 Range/Units 17:17 17:17 WBC 9.29 (4.8-10.8) K/ul RBC 3.55 L (4.20-5.40) M/uL Hgb 10.8 L (12.0-16.0) g/dl Hct 32.8 L (37.0-47.0) % MCV 92.4 (80.0-100.0) fL MCH 30.4 (25.0-34.0) pg MCHC 32.9 (32.0-36.0) g/dL RDW Std Deviation 41.8 (36.4-46.3) fL RDW Coeff of Paty 12.5 (11.5-14.5) % Plt Count 410 H (130-400) K/uL MPV 9.0 L (9.4-12.4) fL Immature Gran % (Auto) 0.4 % Neut % (Auto) 79.7 % Lymph % (Auto) 11.7 % Concho % (Auto) 6.1 % Eos % (Auto) 1.7 % Baso % (Auto) 0.4 % Neut # (Auto) 7.39 H (1.40-6.50) K/uL Lymph # (Auto) 1.09 L (1.2-3.4) K/uL Concho # (Auto) 0.57 (0.11-0.59) K/uL Eos # (Auto) 0.16 (0-0.50) K/uL Baso # (Auto) 0.04 (0-0.2) K/uL Immature Gran # (Auto) 0.04 (0.01-0.20) K/uL ESR (0-30) mm/hr PT (9.0-12.0) Seconds INR (0.9-1.1) APTT (21.0-31.0) Seconds PTT Ratio Sodium (136-145) mmol/L Potassium (3.5-5.1) mmol/L Chloride (98-107) mmol/L Carbon Dioxide (21-32) mmol/L Anion Gap (3-11) BUN (6-23) mg/dl Creatinine (0.6-1.2) mg/dl Est Cr Clr Drug Dosing Est GFR ( Amer) ml/min Est GFR (Non-Af Amer) ml/min BUN/Creatinine Ratio (10-20) Glucose (70-99(Fasting)) mg/dl Lactate 1.4 (0.4-2.0) mmol/L Calcium (8.6-10.3) mg/dl Magnesium (1.7-2.4) mg/dl Total Bilirubin (0.2-1.0) mg/dl AST (13-39) U/L ALT (7-52) U/L Alkaline Phosphatase (34-104) U/L Troponin I High Sens (0-14) pg/ml C-Reactive Protein (0-0.5) mg/dl Total Protein (6.0-8.3) gm/dl Albumin (3.4-5.0) gm/dl Globulin (2.5-4.0) gm/dl Albumin/Globulin Ratio (0.9-2) Procalcitonin (0-0.5) ng/ml Urine Color Urine Appearance (Clear) Urine pH (4.5-7.5) Ur Specific [place] (1.000-1.030) Urine Protein (Negative) Urine Glucose (UA) (Negative) Urine Ketones (Negative) Urine Blood (Negative) Urine Nitrite (Negative) Urine Bilirubin (Negative) Urine Urobilinogen (Negative) Ur Leukocyte Esterase (Negative) SARS-CoV-2, RNA, NAAT (NEGATIVE) Diagnostic Findings Chest X-Ray 09/19/22 16:12 XR chest 1V not portable HISTORY: Sepsis COMPARISON: Chest 08/29/2022. FINDINGS: No pneumothorax. No pleural effusions. A few bibasilar linear densities persist and favor subsegmental atelectasis are scarring. The heart remains mildly enlarged. There is a diffusely elevated interstitium without focal lung consolidations to suggest a pneumonia. This remains unchanged. There are degenerative changes within the shoulders. IMPRESSION: No significant change compared to the prior study. No acute process. ACT 112: Negative or not required by law. Electronically signed by: Joe Dover M.D. 09/19/2022 5:04 PM PG Care Time/CCT Total # of Minutes Spent Total Time Spent with Patient: Total time spent is greater than 50% in coordination of care (as documented) at patient's floor/unit and/or counseling patient: Coding Level of Care Code 67379 SUB INP/OBS CARE 3/50MIN Diagnoses Cellulitis of right leg L03.115 Chronic pain G89.29 Status post total right knee replacement using cement Z96.651 Bipolar disorder F31.9 Rheumatoid arthritis M06.9 Hypertension I10 Sleep apnea G47.30 Chronic obstructive pulmonary disease J44.9
[2022-09-20] MEDS: METOPROLOL SUCC 50MG EXT REL TAB PO SCH (09:12)
[2022-09-20] MEDS: LOSARTAN POTASSIUM 50 MG TAB PO SCH (09:12)
[2022-09-20] MEDS: ARIPiprazole 5 MG TAB PO SCH (09:12)
[2022-09-20] MEDS: VENLAFAXINE HCL XR 75 MG CAPXR PO SCH (09:12)
[2022-09-20] MEDS: hydroCHLOROthiazide 25 MG TAB PO SCH (09:12)
[2022-09-20] MEDS: RIVAROXABAN 10 MG TABLET PO SCH (09:12)
[2022-09-20] MEDS: GABAPENTIN 600 MG TAB PO SCH ×3 (09:12→22:20)
[2022-09-20] MEDS: GABAPENTIN 300 MG CAP PO SCH ×3 (09:13→22:20)
[2022-09-20] MEDS: CHECK BUPRENORPHINE PATCH SCH ×2 (09:14→15:43)
[2022-09-20] MEDS ORDERED: oxyCODONE HCL IR 5 MG TAB (IMMEDIATE RELEASE) PO PRN (09:48)
--- NOTE | 2022-09-20 10:09 | Orthopedic Consultation ---
Date of Consultation September 20, 2022 Assessment & Plan (1) Cellulitis of right leg: Cellulitis right lower extremity status post right total knee arthroplasty. Overall improvement noted. Continue daptomycin at this time. Plan for elevation of the right lower extremity. Ice to right knee as needed. Patient may be up on a limited fashion to the bathroom and short walks. Weightbearing as tolerated. Pain management-currently on morphine 2 mg IV. We will add oxycodone 5 mg 1 or 2 tablets p.o. every 4 hours as needed. DVT prophylaxis-rivaroxaban daily. DC planning-discussion with Dr. Jacobsen's office prior to the patient's admission. With patient's recent TKA, plan for at least 48 hours of IV antib iotics with likely discharge for Thursday. History of Present Illness Reason for Consultation: Cellulitis right lower extremity Attending Physician: Javad Nash MD History of Present Illness 62-year-old female known to our practice who is status post right total knee arthroplasty by Dr. Jacobsen on 09/08/2022. Patient was having fairly normal postoperative recovery time when she noticed she began having some erythema of the lower extremity below the incision. Patient had been prescribed cefadroxil which she had been taking. The erythema began to increase and she began having increased pain in that area. She states that she was still able to bend her knee fairly well but had some discomfort over the skin areas themselves. She had gone to the emergency room 1 time per the request of her orthopedist and she was given a dose of vancomycin and then started on Augmentin. She was then seen in the office this past week. She was asked to follow-up the following day as well. When she did come in to the office yesterday, it appeared that she was not getting any better and was felt that she needed to be admitted for IV antibiotics. Currently this morning, the patient states that she has noticed a decrease in her erythema and swelling. She is not having as much pain. No new complaints. Allergies Allergy/AdvReac Type Severity Reaction Status Date / Time levofloxacin [From Levaquin] Allergy Intermediate Rash Verified 09/19/22 19:16 clarithromycin [From Biaxin] AdvReac Mild Gastrointestinal Verified 09/19/22 19:16 Upset lamotrigine [From Lamictal] AdvReac Mild TREMORS Verified 09/19/22 19:16 perphenazine AdvReac Mild TREMORS Verified 09/19/22 19:16 Home Medications Medication Instructions Recorded Confirmed Type montelukast 10 mg tablet 10 mg PO QAM 10/28/17 09/19/22 History (Singulair) albuterol sulfate 90 mcg/actuation 1 inh inhalation QID PRN sob 08/19/22 09/19/22 History aerosol inhaler aripiprazole 5 mg tablet (Abilify) 5 mg PO QAM 08/19/22 09/19/22 History buprenorphine 15 mcg/hour weekly 1 patch transdermal Q7D 08/19/22 09/19/22 History transdermal patch calcium carbonate 600 mg-vitamin 1 tab PO BID 08/19/22 09/19/22 History D3 5 mcg (200 unit) tablet cholecalciferol (vitamin D3) 50 50 mcg PO BID 08/19/22 09/19/22 History mcg (2,000 unit) tablet (Vitamin D3) cyclobenzaprine 10 mg tablet 10 mg PO TID PRN Pain 08/19/22 09/19/22 History folic acid 1 mg tablet 5 mg PO QAM 08/19/22 09/19/22 History hydroxychloroquine 200 mg tablet See Rx Instructions .Route .COMPLEX 08/19/22 09/19/22 History (Plaquenil) immune glob,gamm(IgG) 10 %-pro-IgA IV 08/19/22 History 0 to 50 mcg/mL intravenous solution (Privigen) irbesartan 300 mg tablet 300 mg PO QAM 08/19/22 09/19/22 History levocetirizine 5 mg tablet 5 mg PO HS 08/19/22 09/19/22 History magnesium 250 mg tablet 500 mg PO HS 08/19/22 09/19/22 History metoprolol succinate 50 mg 100 mg PO QAM 08/19/22 09/19/22 History tablet,extended release 24 hr [id number] 8 mg-folic 400 1 tab PO QAM 08/19/22 09/19/22 History mcg-K 50 mcg-lutein 300 mcg tablet (Multivitamin Women 50 Plus) sulfasalazine 500 mg tablet 1,000 mg PO BID 08/19/22 09/19/22 History zinc 50 mg capsule 50 mg PO QAM 08/19/22 09/19/22 History hydrochlorothiazide 25 mg tablet 25 mg PO QAM 09/05/22 09/19/22 History cefadroxil 500 mg capsule 500 mg PO BID #28 caps 09/10/22 09/19/22 Rx naloxone 4 mg/actuation nasal 1 spray intranasal Q3M PRN opioid 09/10/22 09/19/22 Rx spray (Narcan) overdose #2 ea acetaminophen 500 mg tablet 1,000 mg PO Q8H PRN Pain 09/19/22 09/19/22 History (Tylenol Extra Strength) gabapentin 300 mg capsule See Rx Instructions .Route .COMPLEX 09/19/22 09/19/22 History gabapentin 600 mg tablet See Rx Instructions .Route .COMPLEX 09/19/22 09/19/22 History oxycodone 5 mg tablet 5 mg PO .Q4-6H PRN Pain 09/19/22 09/19/22 History rivaroxaban 10 mg tablet (Xarelto) 10 mg PO QAM 09/19/22 09/19/22 History venlafaxine 75 mg capsule,extended 75 mg PO DAILY 09/19/22 09/19/22 History release 24 hr Patient History Medical History Anxiety and depression Aortic stenosis Bicuspid AV- follows with Brian Cardio Asthma uses rescue inhaler before exertion Bipolar disorder Chronic obstructive pulmonary disease At baseline Chronic pain Degenerative disc disease History of attempted suicide no current problems>follows with mental telehealth>([facility]; [facility]) History of COVID-19 03/2021>hospitalized for 2 weeks at [facility] *result of needing oxygen 15/09 Hypertension Hypoglycemia No diabetes or prediabetes per patient Kidney disease follows nephrology in [place]>stage 2 On home oxygen therapy 4l NC Rheumatoid arthritis Follows with rheum- Dr Farrell- Brian Sleep apnea cpap SOB (shortness of breath) on exertion Surgical History History of back surgery anterior and posterior lumbar laminectomy and fusion (2 surgeries) History of bunionectomy rt/left History of section X2 History of colonoscopy History of dilatation and curettage History of repair of ACL RIGHT History of tooth extraction Hx of chest tube placement - SPONTANEOUS PNEUMOTHORAX; NO ISSUES SINCE Hx of sinus surgery X 4 Status post total right knee replacement using cement [place] teeth removed Family History Father Family history of diabetes mellitus Other No family history of adverse response to anesthesia Social History Smoking Status: Never smoker Second Hand Exposure: Yes (as a child); Do You Dip or Chew Tobacco: No; Hx Alcohol Use: No Hx Substance Use: No Preferred Language: British Communication Ability: Effective Visual Impairment: No Limitations Technical Writing Lead/Mgr Required: No Beliefs That Will Affect Care: None Current Living Situation: Alone Other Information That Helps Us Care for You: No Feels Safe at Home: Yes Safety Concerns: Feels Safe At This Time Assistive Devices: Oxygen - Continuous and Walker Physical Exam Physical Exam: Patient is a 62-year-old white female who appears her stated age. She is alert and oriented x3. No acute distress. Pleasant cooperative. On examination of her right lower extremity, TKA incision has cherry in currently. There is no drainage. The wound appears to be healing well. She continues to have some mild erythema at the distal portion of the incision that extends all the way down to lower extremity to the ankle. Patient states that her erythema did go up to her thigh which has now dissipated. She also states that was going around the calf which also has gotten a little bit better. Her pain is much less today. She also feels that the swelling is down compared to yesterday. She continues with some mild edema at the knee and of the lower extremity to the ankle. She has mild tenderness on palpation of the anterior lower extremity. She has no pain on palpation of the calf. Passive dorsiflexion of the right foot does not cause any increased pain. She has good range of motion of her right ankle and has good dorsiflexion and plantarflexion at this time. Gentle range of motion of the knee at this time has minimal tenderness. Results & Data Vital Signs (Past 12 Hours) Vital Signs Temp Pulse Resp BP Pulse Ox Pulse Ox O2 Del Method 09/20/22 07:37 37.1 C 76 18 137/75 96 Nasal Cannula 09/19/22 22:20 Nasal Cannula 09/19/22 22:20 Nasal Cannula 09/19/22 22:20 94 09/19/22 22:20 37.3 C 81 16 165/76 H 94 Nasal Cannula O2 Del Method O2 Flow Rate O2 Flow Rate 09/20/22 07:37 3 09/19/22 22:20 3 09/19/22 22:20 3 09/19/22 22:20 Nasal Cannula 3 09/19/22 22:20 3
--- NOTE | 2022-09-20 10:26 | Electrocardiogram Report ---
Test Reason : Blood Pressure : / mmHG Vent. Rate : 084 BPM Atrial Rate : 084 BPM P-R Int : 134 ms QRS Dur : 086 ms QT Int : 366 ms P-R-T Axes : 036 015 020 degrees QTc Int : 432 ms Normal sinus rhythm Normal ECG When compared with ECG of 29-AUG-2022 12:04, No significant change was found Confirmed by Cody Fiore ([id number]) on 09/20/2022 10:26:43 AM Referred By: Prabhjot Jacobsen Confirmed By:Cody Fiore
[2022-09-20] MEDS: oxyCODONE HCL IR 5 MG TAB (IMMEDIATE RELEASE) PO PRN ×3 (10:46→19:41)
[2022-09-20] MEDS: DOCUSATE SODIUM/SENNA 50/8.6MG TAB PO SCH (11:36)
[2022-09-20] MEDS: MONTELUKAST SODIUM 10 MG TABLET PO SCH (11:36)
[2022-09-20] MEDS: ACETAMINOPHEN 500 MG TAB PO PRN (12:16)
[2022-09-20] MEDS: MULTIVITAMIN TAB PO SCH (13:30)
[2022-09-20] MEDS: FOLIC ACID 1 MG TAB PO SCH (13:31)
[2022-09-20] MEDS: MAGNESIUM HYDROXIDE SUSP 30 ML UDC PO PRN ×2 (15:18→22:29)
[2022-09-20] MEDS: MAGNESIUM OXIDE 400 MG TAB PO SCH (19:44)
[2022-09-20] MEDS ORDERED: MONTELUKAST SODIUM 10 MG TABLET PO SCH (21:00)
[2022-09-21] MEDS: ACETAMINOPHEN 500 MG TAB PO PRN ×2 (01:05→11:46)
[2022-09-21] MEDS: oxyCODONE HCL IR 5 MG TAB (IMMEDIATE RELEASE) PO PRN ×5 (01:05→20:40)
[2022-09-21] MEDS: CHECK BUPRENORPHINE PATCH SCH ×3 (01:08→15:23)
[2022-09-21] MEDS: DAPTOmycin 325 MG in SYRINGE 0 ML IV SCH (05:59)
[2022-09-21 07:22] LABS: Basophils # (auto) 0.04 K/uL (0-0.2); Basophils % (auto) 0.6 %; Eosinophils # (auto) 0.22 K/uL (0-0.50); Eosinophils % (auto) 3.4 %; Hemoglobin 9.6 g/dl (12.0-16.0); Immature Granulocytes # (auto) 0.03 K/uL (0.01-0.20); Immature Granulocytes % (auto) 0.5 %; Lymphocytes # (auto) 0.87 K/uL (1.2-3.4); Lymphocytes % (auto) 13.3 %; Mean Corpuscular Hemoglobin 30.7 pg (25.0-34.0); Mean Corpuscular Volume 95.8 fL (80.0-100.0); Monocytes # (auto) 0.41 K/uL (0.11-0.59); Monocytes % (auto) 6.3 %; Neutrophils # (auto) 4.99 K/uL (1.40-6.50); Neutrophils % (auto) 75.9 %; Platelet Count 336 K/uL (130-400); RDW Coefficient of Variation 12.7 % (11.5-14.5); RDW Standard Deviation 43.7 fL (36.4-46.3); Red Blood Count 3.13 M/uL (4.20-5.40); White Blood Count 6.56 K/ul (4.8-10.8)
[2022-09-21 07:38] LABS: Calcium 9.7 mg/dl (8.6-10.3); Creatinine Clr Calc Pharmacy 75.8 ml/min; Magnesium 2.1 mg/dl (1.7-2.4); Potassium 3.9 mmol/L (3.5-5.1)
[2022-09-21 07:45] LABS: INR 1.1 (0.9-1.1); Prothrombin Time 11.9 Seconds (9.0-12.0)
--- NOTE | 2022-09-21 07:46 | Hospitalist Progress Note ---
Date of Service September 21, 2022 Assessment & Plan (1) Cellulitis of right leg: Plan: Developed cellulitis following her TKA 09/08 (outside hospital NEGATIVE US VENOUS Doppler reported, never missed dose Xarelto) GIven IV abx at [facility] ER on 09/17 and dc on Amoxicillin with progression of cellulitis In ER, given Vanco/Rocephin Dapto/Cefepime due to BMI/immunocompromised state WBC wnl, remains afebrile Blood cultures remain NGTD CRP decreasing Elevation recommended Pain control SIGNIFICANT IMPROVEMENT in redness/erythema on exam PT/OT consulted -- asked to see today per patient. RN to call DVT proph: Xarelto continued If blood cultures remain NGTD overnight can plan to discharge tomorrow on oral antibiotics (2) Chronic pain: Plan: Continue home Butrans patch, changed q7Days (today is day # 4) Continue gabapentin Tylenol & PO/IV opiates ordered as needed Bowel regimen Reports controlled pain w/ ordered medications (3) Status post total right knee replacement using cement: Plan: -Surgical site appears intact and without drainage -Ortho consult placed as above, rec continuing inpatient stay x 48hr IV abx. If blood cultures remaining ngtd can dc Thursday as above (4) Bipolar disorder: Plan: Continue Abilify (5) Rheumatoid arthritis: Plan: -Hold sulfasalazine and Plaquenil for now -- discussed w/ patient would not resume until discussed w/ rheumatology AFTER her infection has resolved Symptoms stable for joint pain at present (6) Hypertension: Plan: HCTZ held temporarily this morning --> slight headache/elevation in BP reported w/ holding prior. No focal deficit on exam and this was resumed Remains on metoprolol Monitor (7) Sleep apnea: Plan: HS CPAP ordered (8) Chronic obstructive pulmonary disease: Plan: On baseline 4L NC but uses 3L at rest Continue O2 at 4L NC for goal SpO2 of 88-92% Plan continued inpatient stay on IV abx If BCx NGTD in AM, can dc on oral to complete course PT/OT consults ordered but have not been completed yet -- RN to call to see if will be by today Admission and Anticipated Discharge Date Admission Date: September 19, 2022 Supervising Physician Co-Signing Physician Notes The patient was not seen by me. The chart was reviewed. Case discussed with TARA Kaba. Agree with assessment and plan Subjective Eval this morning, redness much improved. wanting to know if therapy will be to see her as more pain to knee when not moving. Little bit of a headache, HCTZ prior placed on hold, BP checked and 160/80s, will resume HCTZ now. No fever/chills, chest pain, shortness of breath. Passing gas but wanting to move her bowels. Took something this morning but might ask for something else later if no BM. Questions/concerns addressed. Physical Exam Physical Exam: General: WD/WN obese female sitting up in bed, NAD, reporting slight headache HEENT: head normocephalic, atraumatic, mmm, trachea midline, pupils equal/reactive Resp: diminished in the bases, no w/c/r, on baseline 3L NC CV: RRR, +systolic murmur, edema to RLE from cellulitis with SIGNIFICANT improvement in erythema/warmth, decreased tenderness GI: +BS, soft/NT : no jean MSK/Neuro:R TKA cherry in place, no active drainage. decreased swelling and erythema reported, decreased pain. some pain w/ ROM, sensation intact Psych: AOx3, cooperative with exam Results & Data Results & Data Vital Signs (Past 12 Hours) Vital Signs Temp Pulse Resp BP BP Pulse Ox Pulse Ox 09/21/22 07:31 36.8 C 66 18 132/79 97 09/21/22 04:48 94 09/20/22 20:20 09/20/22 21:19 36.8 C 71 20 153/80 H 98 O2 Del Method O2 Del Method O2 Flow Rate O2 Flow Rate 09/21/22 07:31 Nasal Cannula 3 09/21/22 04:48 Nasal Cannula 3 09/20/22 20:20 Nasal Cannula, CPAP 3 09/20/22 21:19 Nasal Cannula 3 Laboratory Results 09/21/22 09/21/22 09/21/22 Range/Units 06:14 06:14 06:14 WBC 6.56 (4.8-10.8) K/ul RBC 3.13 L (4.20-5.40) M/uL Hgb 9.6 L (12.0-16.0) g/dl Hct 30.0 L (37.0-47.0) % MCV 95.8 (80.0-100.0) fL MCH 30.7 (25.0-34.0) pg MCHC 32.0 (32.0-36.0) g/dL RDW Std Deviation 43.7 (36.4-46.3) fL RDW Coeff of Paty 12.7 (11.5-14.5) % Plt Count 336 (130-400) K/uL MPV 9.0 L (9.4-12.4) fL Immature Gran % (Auto) 0.5 % Neut % (Auto) 75.9 % Lymph % (Auto) 13.3 % Crisp % (Auto) 6.3 % Eos % (Auto) 3.4 % Baso % (Auto) 0.6 % Neut # (Auto) 4.99 (1.40-6.50) K/uL Lymph # (Auto) 0.87 L (1.2-3.4) K/uL Crisp # (Auto) 0.41 (0.11-0.59) K/uL Eos # (Auto) 0.22 (0-0.50) K/uL Baso # (Auto) 0.04 (0-0.2) K/uL Immature Gran # (Auto) 0.03 (0.01-0.20) K/uL PT 11.9 (9.0-12.0) Seconds INR 1.1 (0.9-1.1) Sodium 134 L (136-145) mmol/L Potassium 3.9 (3.5-5.1) mmol/L Chloride 95 L (98-107) mmol/L Carbon Dioxide 30 (21-32) mmol/L Anion Gap 9 (3-11) BUN 20 (6-23) mg/dl Creatinine 0.98 (0.6-1.2) mg/dl Est Cr Clr Drug Dosing 75.8 ml/min Est GFR ( Amer) 72.2 ml/min Est GFR (Non-Af Amer) 62.3 ml/min BUN/Creatinine Ratio 20.4 H (10-20) Glucose 168 H (70-99(Fasting)) mg/dl Calcium 9.7 (8.6-10.3) mg/dl Magnesium 2.1 (1.7-2.4) mg/dl C-Reactive Protein 5.69 H (0-0.5) mg/dl PG Care Time/CCT Total # of Minutes Spent Total Time Spent with Patient: Total time spent is greater than 50% in coordination of care (as documented) at patient's floor/unit and/or counseling patient: Coding Level of Care Code 72010 SUB INP/OBS CARE 2/35MIN Diagnoses Cellulitis of right leg L03.115 Chronic pain G89.29 Status post total right knee replacement using cement Z96.651 Bipolar disorder F31.9 Rheumatoid arthritis M06.9 Hypertension I10 Sleep apnea G47.30 Chronic obstructive pulmonary disease J44.9
[2022-09-21 09:29] LABS: BUN Creatinine Ratio 20.4 (10-20); C Reactive Protein 5.69 mg/dl (0-0.5); Est GFR (African American) 72.2 ml/min; Est GFR (Non-African American) 62.3 ml/min
[2022-09-21] MEDS: DOCUSATE SODIUM/SENNA 50/8.6MG TAB PO SCH (09:31)
[2022-09-21] MEDS: LOSARTAN POTASSIUM 50 MG TAB PO SCH (09:31)
[2022-09-21] MEDS: RIVAROXABAN 10 MG TABLET PO SCH (09:31)
[2022-09-21] MEDS: GABAPENTIN 300 MG CAP PO SCH ×3 (09:31→20:42)
[2022-09-21] MEDS: VENLAFAXINE HCL XR 75 MG CAPXR PO SCH (09:31)
[2022-09-21] MEDS: MONTELUKAST SODIUM 10 MG TABLET PO SCH (09:31)
[2022-09-21] MEDS: GABAPENTIN 600 MG TAB PO SCH ×3 (09:31→20:41)
[2022-09-21] MEDS: FOLIC ACID 1 MG TAB PO SCH (09:32)
[2022-09-21] MEDS: METOPROLOL SUCC 50MG EXT REL TAB PO SCH (09:32)
[2022-09-21] MEDS: ARIPiprazole 5 MG TAB PO SCH (09:32)
[2022-09-21] MEDS: MULTIVITAMIN TAB PO SCH (09:32)
[2022-09-21] MEDS: hydroCHLOROthiazide 25 MG TAB PO SCH (11:07)
--- NOTE | 2022-09-21 13:06 | Orthopedic Progress Note ---
Date of Service September 21, 2022 Assessment & Plan (1) Cellulitis of right leg: Plan: Cellulitis right lower extremity status post right total knee arthroplasty. Surgical incision in total knee overall looks good. It appears that her cellulitis is continuing to improve and respond well to the IV antibiotics. Weightbearing as tolerated right lower extremity PT/OT DVT prophylaxis Medical management Continue IV antibiotics plan for likely discharge home tomorrow Admission and Anticipated Discharge Date Admission Date: September 19, 2022 Subjective Patient seen and examined, no acute events overnight. Reports that her cellulitis continues to improve. Has been out of bed ambulating Physical Exam Physical Exam: No acute distress, alert and oriented to person place and time Musculoskeletal: Right lower extremity Incision healing well there are cherry in place. There is no erythema or active drainage from the incision. Cellulitis continues to improve. Grossly neurovascular intact she is able to fire tibialis anterior gastrocsoleus complex as well as EHL. Sensation intact to light touch in the distributions of the saphenous/superficial peroneal nerve/deep peroneal nerve/tibial/sural nerve distributions Brisk capillary refill over digits and palpable dorsalis pedis and posterior tibial pulses. Results & Data Vital Signs (Past 12 Hours) Vital Signs Temp Pulse Resp BP Pulse Ox Pulse Ox O2 Del Method 09/21/22 09:55 Nasal Cannula 09/21/22 07:31 36.8 C 66 18 132/79 97 Nasal Cannula 09/21/22 04:48 94 O2 Del Method O2 Flow Rate O2 Flow Rate 09/21/22 09:55 3 09/21/22 07:31 3 09/21/22 04:48 Nasal Cannula 3
[2022-09-21] MEDS: MAGNESIUM HYDROXIDE SUSP 30 ML UDC PO PRN (18:34)
[2022-09-21] MEDS: MAGNESIUM OXIDE 400 MG TAB PO SCH (20:41)
[2022-09-22] MEDS: CHECK BUPRENORPHINE PATCH SCH ×4 (00:30→23:29)
[2022-09-22] MEDS: oxyCODONE HCL IR 5 MG TAB (IMMEDIATE RELEASE) PO PRN ×5 (04:32→23:29)
[2022-09-22] MEDS: ACETAMINOPHEN 500 MG TAB PO PRN ×2 (05:13→20:04)
[2022-09-22] MEDS: DAPTOmycin 325 MG in SYRINGE 0 ML IV SCH (05:41)
[2022-09-22] MEDS ORDERED: DIPHENOXYLATE/ATROPINE 2.5/0.025MG TAB PO PRN (07:00)
--- NOTE | 2022-09-22 07:05 | Orthopedic Progress Note ---
Date of Service September 22, 2022 Assessment & Plan (1) Cellulitis of right leg: Plan: Cellulitis right lower extremity status post right total knee arthroplasty. Case discussed with Dr. Jacobsen this morning. With continued residual erythema, he would like the patient to continue IV antibiotics in the in-hospital setting. Question possibility of doing home health with IV antibiotics if needed. Continue PT/OT protocols. Weightbearing as tolerated. DVT prophylaxis Pain management. Admission and Anticipated Discharge Date Admission Date: September 21, 2022 Subjective Ambulating in room with walker this AM. Having some initial pain in the knee with ROM but works it's way out after being OOB. RA causing her normal stiffness in the AM. Mild diarrhea since yesterday. Asking for Lomotil if needed. No other complaints this AM. Physical Exam Physical Exam: Incision continues to remain benign. Patient continues to have some residual erythema over most of her lower extremity below the knee. Continues with some mild edema. She is ambulating without pain but does have some mild discomfort with range of motion of which she attributes to her surgery. Calves are soft and nontender. Neurovascular intact. Toes are mobile Results & Data Vital Signs (Past 12 Hours) Vital Signs Temp Pulse Resp BP Pulse Ox O2 Del Method O2 Flow Rate 09/22/22 06:05 36.9 C 75 18 144/72 H 96 Nasal Cannula 3 09/21/22 20:45 Room Air 09/21/22 21:34 36.8 C 72 18 143/78 H 96 Room Air
[2022-09-22] MEDS: GABAPENTIN 600 MG TAB PO SCH ×3 (07:42→20:05)
[2022-09-22] MEDS: GABAPENTIN 300 MG CAP PO SCH ×3 (07:42→20:05)
[2022-09-22] MEDS: MONTELUKAST SODIUM 10 MG TABLET PO SCH (07:43)
[2022-09-22] MEDS: MULTIVITAMIN TAB PO SCH (07:43)
[2022-09-22] MEDS: hydroCHLOROthiazide 25 MG TAB PO SCH (07:43)
[2022-09-22] MEDS: VENLAFAXINE HCL XR 75 MG CAPXR PO SCH (07:44)
[2022-09-22] MEDS: LOSARTAN POTASSIUM 50 MG TAB PO SCH (07:44)
[2022-09-22] MEDS: RIVAROXABAN 10 MG TABLET PO SCH (07:44)
[2022-09-22] MEDS: ARIPiprazole 5 MG TAB PO SCH (07:45)
[2022-09-22] MEDS: METOPROLOL SUCC 50MG EXT REL TAB PO SCH (07:50)
[2022-09-22] MEDS: FOLIC ACID 1 MG TAB PO SCH (07:51)
[2022-09-22 07:52] LABS: Basophils # (auto) 0.03 K/uL (0-0.2); Basophils % (auto) 0.4 %; Eosinophils # (auto) 0.23 K/uL (0-0.50); Eosinophils % (auto) 2.8 %; Hematocrit (blood only) 31.5 % (37.0-47.0); Hemoglobin 10.4 g/dl (12.0-16.0); Immature Granulocytes # (auto) 0.03 K/uL (0.01-0.20); Immature Granulocytes % (auto) 0.4 %; Lymphocytes % (auto) 16.8 %; Mean Corpuscular Volume 93.8 fL (80.0-100.0); Monocytes # (auto) 0.68 K/uL (0.11-0.59); Monocytes % (auto) 8.1 %; Neutrophils # (auto) 5.98 K/uL (1.40-6.50); Neutrophils % (auto) 71.5 %; Platelet Count 412 K/uL (130-400); RDW Coefficient of Variation 12.6 % (11.5-14.5); RDW Standard Deviation 43.4 fL (36.4-46.3); Red Blood Count 3.36 M/uL (4.20-5.40); White Blood Count 8.35 K/ul (4.8-10.8)
[2022-09-22] MEDS: DOCUSATE SODIUM/SENNA 50/8.6MG TAB PO SCH (07:55)
[2022-09-22 08:10] LABS: BUN Creatinine Ratio 23.9 (10-20); Calcium 9.9 mg/dl (8.6-10.3); Creatinine Clr Calc Pharmacy 79.4 ml/min; Est GFR (African American) 77.9 ml/min; Est GFR (Non-African American) 67.2 ml/min; Magnesium 2.2 mg/dl (1.7-2.4); Potassium 4.5 mmol/L (3.5-5.1)
[2022-09-22 08:14] LABS: INR 1.1 (0.9-1.1); Prothrombin Time 11.5 Seconds (9.0-12.0)
[2022-09-22 09:14] LABS: Thyroid Stimulating Hormone 5.403 uIu/ml (0.300-4.500)
[2022-09-22 09:47] LABS: T4 Free Thyroxine 0.7 ng/dl (0.61-1.60)
[2022-09-22] MEDS ORDERED: FUROSEMIDE INJ 20 MG/2 ML VIAL IV ONE (11:47)
[2022-09-22] MEDS: MAGNESIUM OXIDE 400 MG TAB PO SCH (20:05)
--- NOTE | 2022-09-22 22:45 | Hospitalist Progress Note ---
Date of Service September 22, 2022 Assessment & Plan (1) Cellulitis of right leg: Plan: Developed cellulitis following her TKA 09/08 (outside hospital NEGATIVE US VENOUS Doppler reported, never missed dose Xarelto) GIven IV abx at [facility] ER on 09/17 and dc on Amoxicillin with progression of cellulitis In ER, given Vanco/Rocephin Dapto due to BMI/immunocompromised state Only received admit dose of cefepime. WIll monitor overnight and check inflammatory markers. Anticipate discharge tomorrow. Perhaps bactrim. Ordered a one time dose of lasix 20 mg WBC wnl, remains afebrile Blood cultures remain NGTD CRP decreasing Elevation recommended Pain control SIGNIFICANT IMPROVEMENT in redness/erythema on exam PT/OT consulted -- asked to see today per patient. RN to call DVT proph: Xarelto continued If blood cultures remain NGTD overnight can plan to discharge tomorrow on oral antibiotics (2) Chronic pain: Plan: Continue home Butrans patch, changed q7Days (today is day # 4) Continue gabapentin Tylenol & PO/IV opiates ordered as needed Bowel regimen Reports controlled pain w/ ordered medications (3) Status post total right knee replacement using cement: Plan: -Surgical site appears intact and without drainage -Ortho consult placed as above, rec continuing inpatient stay x 48hr IV abx. (4) Bipolar disorder: Plan: Continue Abilify (5) Rheumatoid arthritis: Plan: -Hold sulfasalazine and Plaquenil for now -- discussed w/ patient would not resume until discussed w/ rheumatology AFTER her infection has resolved Symptoms stable for joint pain at present (6) Hypertension: Plan: HCTZ held temporarily this morning --> slight headache/elevation in BP reported w/ holding prior. No focal deficit on exam and this was resumed Remains on metoprolol Monitor (7) Sleep apnea: Plan: HS CPAP ordered (8) Chronic obstructive pulmonary disease: Plan: On baseline 4L NC but uses 3L at rest Continue O2 at 4L NC for goal SpO2 of 88-92% Plan continued inpatient stay on IV abx If BCx NGTD in AM, can dc on oral to complete course PT/OT consults ordered but have not been completed yet -- RN to call to see if will be by today Admission and Anticipated Discharge Date Admission Date: September 21, 2022 Subjective Patient reports no new symptoms. Review of Systems Review of Systems: All systems reviewed & are unremarkable except as noted in HPI & below Physical Exam Physical Exam: General: WD/WN obese female sitting up in bed, NAD, reporting slight headache HEENT: head normocephalic, atraumatic, mmm, trachea midline, pupils equal/reactive Resp: don baseline 3L NC CV: RRR, +systolic murmur, edema to RLE from cellulitis with no signifcant improvement from yesterday, decreased te thoughnderness GI: +BS, soft/NT : no jean MSK/Neuro:R TKA cherry in place, no active drainage. decreased swelling and erythema reported, decreased pain. some pain w/ ROM, sensation intact Psych: AOx3, cooperative with exam Results & Data Results & Data Vital Signs (Past 12 Hours) Vital Signs Temp Pulse Resp BP Pulse Ox O2 Del Method O2 Flow Rate 09/22/22 20:52 138/68 09/22/22 20:08 37.0 C 72 16 159/78 H 98 Nasal Cannula 3 09/22/22 14:45 37.2 C 73 16 144/78 H 92 Nasal Cannula 2.5 PG Care Time/CCT Total # of Minutes Spent Total Time Spent with Patient: Total time spent is greater than 50% in coordination of care (as documented) at patient's floor/unit and/or counseling patient: Coding Level of Care Code 78144 SUB INP/OBS CARE 2/35MIN Diagnoses Cellulitis of right leg L03.115 Chronic pain G89.29 Status post total right knee replacement using cement Z96.651 Bipolar disorder F31.9 Rheumatoid arthritis M06.9 Hypertension I10 Sleep apnea G47.30 Chronic obstructive pulmonary disease J44.9
[2022-09-23] MEDS: oxyCODONE HCL IR 5 MG TAB (IMMEDIATE RELEASE) PO PRN ×5 (04:19→22:19)
[2022-09-23] MEDS: DAPTOmycin 325 MG in SYRINGE 0 ML IV SCH (05:49)
[2022-09-23 06:51] LABS: Hematocrit (blood only) 29.9 % (37.0-47.0); Hemoglobin 9.9 g/dl (12.0-16.0); Mean Corpuscular Hemoglobin 30.4 pg (25.0-34.0); Mean Corpuscular Hgb Conc 33.1 g/dL (32.0-36.0); Mean Corpuscular Volume 91.7 fL (80.0-100.0); Mean Platelet Volume 8.7 fL (9.4-12.4); Platelet Count 351 K/uL (130-400); RDW Coefficient of Variation 12.5 % (11.5-14.5); RDW Standard Deviation 41.7 fL (36.4-46.3); Red Blood Count 3.26 M/uL (4.20-5.40); White Blood Count 5.95 K/ul (4.8-10.8)
[2022-09-23 07:11] LABS: BUN Creatinine Ratio 26.4 (10-20); C Reactive Protein 9.36 mg/dl (0-0.5); Calcium 9.9 mg/dl (8.6-10.3); Creatinine Clr Calc Pharmacy 80.3 ml/min; Est GFR (African American) 78.9 ml/min; Est GFR (Non-African American) 68.1 ml/min; Potassium 3.9 mmol/L (3.5-5.1)
--- NOTE | 2022-09-23 08:27 | Hospitalist Progress Note ---
Date of Service September 23, 2022 Assessment & Plan (1) Cellulitis of right leg: Plan: Developed cellulitis following her TKA 09/08 (outside hospital NEGATIVE US VENOUS Doppler reported, never missed dose Xarelto) GIven IV abx at [facility] ER on 09/17 and sd on Amoxicillin with progression of cellulitis In ER, given Vanco/Rocephin Dapto due to BMI/immunocompromised state Only received admit dose of cefepime. Inflammatory markers worse at ESR 73, CRP 9.36 Ortho on consult BLood cultures remain NGTD WBC wnl/afebrile PT/OT consulted DVT proph: Xarelto lasix 20mg PO x 1 again today given stable kidney function/no significant dehydration on exam to help with swelling Consultation placed for ID to see if recs for pseudomonal coverage or not --> she follows w/ Dr Guerrero monthly for IVIG, would like records forwards at sd and can have outpt ID follow up with them as well Pain control/elevation Monitor labs/cellulitis on exam in AM (2) Chronic pain: Plan: Continue home Butrans patch, changed q7Days (today is day # 5) Continue gabapentin Tylenol & PO/IV opiates ordered as needed Bowel regimen Reports controlled pain w/ ordered medications Discussed having her reschedule her epidural injection given acute infection (3) Status post total right knee replacement using cement: Plan: -Surgical site appears intact and without drainage -Ortho consult placed as above, rec continuing inpatient stay overnight until see by them in AM (4) Bipolar disorder: Plan: Continue Abilify , mood stable (5) Rheumatoid arthritis: Plan: -Hold sulfasalazine and Plaquenil for now -- discussed w/ patient would not resume until discussed w/ rheumatology AFTER her infection has resolved Symptoms stable for joint pain at present (6) Hypertension: Plan: Continues on HCTZ, losartan, metoprolol Lasix for edema as above BP stable in setting of pain (7) Sleep apnea: Plan: HS CPAP ordered (8) Chronic obstructive pulmonary disease: Plan: On baseline 4L NC but uses 3L at rest Continue O2 at 4L NC for goal SpO2 of 88-92% Plan continued inpatient stay on IV abxDelmar to see in AM ID consulted for today to see about need for cefepime vs ability to use Bactrim PO at discharge Admission and Anticipated Discharge Date Admission Date: September 21, 2022 Subjective Eval this morning, redness about the same, slightly decreased edema. Discussed additional dose lasix again today, also consultation w/ ID. She typically follows w/ Cortez Guerrero for monthly IVIG. ALso notes f/u pain management for epidural injection. Discussed likely in setting infection would hold off on such and req she reschedule. She states seen by ortho this morning, wanting to stay overnight/cherry removed by delmar every other staple for tomorrow. Questions/concerns addressed at this time. Physical Exam Physical Exam: General: WD/WN obese female sitting up in bed, NAD HEENT: head normocephalic, atraumatic, mmm, trachea midline, pupils equal/reactive Resp: don baseline 3L NC CV: RRR, +systolic murmur, edema to RLE from cellulitis slightly improved, pulses palpable GI: +BS, soft/NT : no jean MSK/Neuro:R TKA cherry in place, no active drainage. , erythema about the same/possible slightly better but still with erythema around patella and medial knee, some pain w/ ROM, sensation intact Psych: AOx3, cooperative with exam Results & Data Results & Data Vital Signs (Past 12 Hours) Vital Signs Temp Pulse Resp BP Pulse Ox O2 Del Method O2 Flow Rate 09/23/22 07:13 36.6 C 72 16 147/80 H 98 Nasal Cannula 3 09/22/22 20:52 138/68 Laboratory Results 09/23/22 09/23/22 09/23/22 Range/Units 06:19 06:19 06:19 WBC 5.95 (4.8-10.8) K/ul RBC 3.26 L (4.20-5.40) M/uL Hgb 9.9 L (12.0-16.0) g/dl Hct 29.9 L (37.0-47.0) % MCV 91.7 (80.0-100.0) fL MCH 30.4 (25.0-34.0) pg MCHC 33.1 (32.0-36.0) g/dL RDW Std Deviation 41.7 (36.4-46.3) fL RDW Coeff of Paty 12.5 (11.5-14.5) % Plt Count 351 (130-400) K/uL MPV 8.7 L (9.4-12.4) fL ESR 73 H (0-30) mm/hr Sodium 134 L (136-145) mmol/L Potassium 3.9 (3.5-5.1) mmol/L Chloride 94 L (98-107) mmol/L Carbon Dioxide 34 H (21-32) mmol/L Anion Gap 6 (3-11) BUN 24 H (6-23) mg/dl Creatinine 0.91 (0.6-1.2) mg/dl Est Cr Clr Drug Dosing 80.3 ml/min Est GFR ( Amer) 78.9 ml/min Est GFR (Non-Af Amer) 68.1 ml/min BUN/Creatinine Ratio 26.4 H (10-20) Glucose 117 H (70-99(Fasting)) mg/dl Calcium 9.9 (8.6-10.3) mg/dl C-Reactive Protein 9.36 H (0-0.5) mg/dl PG Care Time/CCT Total # of Minutes Spent Total Time Spent with Patient: Total time spent is greater than 50% in coordination of care (as documented) at patient's floor/unit and/or counseling patient: Coding Level of Care Code 84611 SUB INP/OBS CARE 3/50MIN Diagnoses Cellulitis of right leg L03.115 Chronic pain G89.29 Status post total right knee replacement using cement Z96.651 Bipolar disorder F31.9 Rheumatoid arthritis M06.9 Hypertension I10 Sleep apnea G47.30 Chronic obstructive pulmonary disease J44.9
[2022-09-23] MEDS: ACETAMINOPHEN 500 MG TAB PO PRN ×2 (08:34→16:19)
[2022-09-23] MEDS: LOSARTAN POTASSIUM 50 MG TAB PO SCH (08:35)
[2022-09-23] MEDS: hydroCHLOROthiazide 25 MG TAB PO SCH (08:35)
[2022-09-23] MEDS: ARIPiprazole 5 MG TAB PO SCH (08:35)
[2022-09-23] MEDS: MULTIVITAMIN TAB PO SCH (08:35)
[2022-09-23] MEDS: GABAPENTIN 600 MG TAB PO SCH ×3 (08:36→20:21)
[2022-09-23] MEDS: FOLIC ACID 1 MG TAB PO SCH (08:36)
[2022-09-23] MEDS: MONTELUKAST SODIUM 10 MG TABLET PO SCH (08:36)
[2022-09-23] MEDS: DOCUSATE SODIUM/SENNA 50/8.6MG TAB PO SCH ×2 (08:36→14:28)
[2022-09-23] MEDS: METOPROLOL SUCC 50MG EXT REL TAB PO SCH (08:36)
[2022-09-23] MEDS: RIVAROXABAN 10 MG TABLET PO SCH (08:37)
[2022-09-23] MEDS: CHECK BUPRENORPHINE PATCH SCH ×2 (08:37→16:18)
[2022-09-23] MEDS: VENLAFAXINE HCL XR 75 MG CAPXR PO SCH (08:37)
[2022-09-23] MEDS: GABAPENTIN 300 MG CAP PO SCH ×3 (08:37→20:21)
--- NOTE | 2022-09-23 09:54 | Orthopedic Progress Note ---
Date of Service September 23, 2022 Assessment & Plan (1) Cellulitis of right leg: Plan: Cellulitis right lower extremity status post right total knee arthroplasty. Case discussed with Dr. Jacobsen this morning. He would like patient to stay until tomorrow. He wants to see pt and discuss staple removal/further care and likely dc to home tomorrow. CRP increased to 9 from 5 Continue PT/OT protocols. Weightbearing as tolerated. DVT prophylaxis Pain management. Admission and Anticipated Discharge Date Admission Date: September 21, 2022 Subjective Pt awake, alert. Sittin up in bed. No complaints this AM. States she received Lasix yesterday which has helped with her edema. Physical Exam Physical Exam: Incision remains benign without drainage. Less erythema today compared to yesterday of the LE below the knee. Knee still has some residual erythema around the patella and medial knee. A little less swelling in the LE. Calves are soft,NT. NV intact. Toes mobile Results & Data Vital Signs (Past 12 Hours) Vital Signs Temp Pulse Resp BP Pulse Ox O2 Del Method O2 Flow Rate 09/23/22 07:13 36.6 C 72 16 147/80 H 98 Nasal Cannula 3
[2022-09-23] MEDS ORDERED: FUROSEMIDE 20 MG TAB PO ONE (11:00)
--- NOTE | 2022-09-23 11:10 | Infectious Disease Consult ---
Date of Consultation September 23, 2022 Assessment & Plan (1) Cellulitis of right leg: Plan Micro: 09/19 BCx x2: NGTD Abx: Vanc 09/19 Ceftriaxone 09/19 Cefepime 09/20 Dapto 09/20 - present Problems: #RLE cellulitis #R TKA 09/08/22 #Levofloxacin allergy: rash 62 yo F with history of COPD (on chronic 4 L O2), MAGNOLIA, bicuspid aortic valve, HTN, RA bipolar disorder, recent R TKA, removal of deep hardware (peek interference screw) from prior ACL repair (09/08/22) who presented on 09/19 with progressive RLE erythema, warmth, tenderness, admitted with RLE cellulitis. Pt underwent R TKA due to ongoing R knee pain that failed conservative measures. Pt did well and was discharged home with on 09/12, with a course of cefadroxil 500 mg PO BID x 14 days. Starting on 09/16, she noted progressively worsening erythema, warmth, and tenderness of the RLE. Erythema involved her R knee, upper medial calf. This progressed to involve her right mid thigh on day of presentation. She presented to [facility] ED on 09/17 where they gave her a dose of vancomycin and another antibiotic that she cannot recall. Also had negative US venous doppler. She was discharged with amox/clav, which she took 2 doses of. She was seen in ortho clinic on day of presentation where they were concerned for worsening cellulitis and she was advised to present to the ED. Pt denies fevers, chills. On presentation, pt was afebrile, VSS. Labs showed WBC 9.29, ESR 71, CRP 9.01, lactate 1.4, procalcitonin<0.05. Chest x-ray negative. Pt was given vanc and ceftriaxone in the ED, one dose of cefepime, then switched to dapto alone. Ortho was consulted--felt this was cellulitis, no drainage from her incision was seen. They recommended continuation of IV dapto for at least 48 hours given recent TKA. Pt's erythema and swelling quickly improved. Recommendations: -Can continue daptomycin -On discharge, can transition to linezolid 600 mg PO q12h for an additional 5 days through 09/29/22 to complete a total 10 day course (Note that pt is on venlafaxine 75 mg PO daily, but studies suggest that risk of serotonin syndrome is very low. In addition, this is a low dose of venlafaxine and pt will be on a short course of linezolid. I discussed signs/symptoms of serotonin syndrome for her to monitor.) -Pt has requested that this note be faxed to her infectious disease physician Dr. Cortez Guerrero at [phone]. Discussed with primary team. Will sign off. Please page [facility] with further questions. Consultation Information Consultation was provided via telemedicine using two-way real-time interactive telecommunication between the patient and the telemedicine provider. For the duration of the visit, the provider was performing the assessment from a different facility than the patient. This includesuse of bluetooth stethoscope forauscultationperformed by the telepresenter that the telemedicine provider can hear if described in the physical exam. Visual Display Manager contact information: Please call [facility] [phone]. (Phone Number For Physician Use Only) After establishing a telemedicine visit, patient was: Patient was verified with two unique identifiers, Patient/authorized rep acknowledged consent and understanding and Gave permission to continue telehealth session Time Spent with Patient: Initial => 40 min History of Present Illness Reason for Consultation: post-op knee cellulitis Requesting Physician: TARA Kaba Attending Physician: Chance Null History of Present Illness 62 yo F with history of COPD (on chronic 4 L O2), MAGNOLIA, bicuspid aortic valve, HTN, RA bipolar disorder, recent R TKA, removal of deep hardware (peek interference screw) from prior ACL repair (09/08/22) who presented to the ED on 09/19 at the recommendation of the Ortho clinic due to concerns for RLE infection. Pt had underwent R TKA due to ongoing R knee pain that failed conservative measures. Pt did well and was discharged home with on 09/12, with a course of cefadroxil 500 mg PO BID x 14 days. Starting on 09/16, she noted progressively worsening erythema, warmth, and tenderness of the RLE. Pt is uncertain exactly where the erythema started, but when she woke up, it involved her R knee, R upper medial calf. This progressed to involve her right mid thigh on day of presentation. She presented to [facility] ED on 09/17 where they gave her a dose of vancomycin and another antibiotic that she cannot recall. She was discharged with amoxicillin/clav. She was then seen in ortho clinic on day of presentation where they were concerned for worsening cellulitis and she was advised to present to the ED. Pt states she only took two doses of Augmentin prior to admission. Pt denies fevers, chills. On presentation, pt was afebrile, VSS. Labs showed WBC 9.29, ESR 71, CRP 9.01, lactate 1.4, procalcitonin<0.05. Chest x-ray negative. Pt was given vanc and ceftriaxone in the ED, then switched to daptomycin and cefepime. Cefepime was dc'ed and pt was continued on dapto alone. Ortho was consulted--no drainage from her incision was seen. They recommended continuation of IV dapto for at least 48 hours given recent TKA. Pt's erythema and swelling quickly improved. Allergies Allergy/AdvReac Type Severity Reaction Status Date / Time levofloxacin [From Levaquin] Allergy Intermediate Rash Verified 09/19/22 19:16 clarithromycin [From Biaxin] AdvReac Mild Gastrointestinal Verified 09/19/22 19:16 Upset lamotrigine [From Lamictal] AdvReac Mild TREMORS Verified 09/19/22 19:16 perphenazine AdvReac Mild TREMORS Verified 09/19/22 19:16 Home Medications Medication Instructions Recorded Confirmed Type montelukast 10 mg tablet 10 mg PO QAM 10/28/17 09/19/22 History (Singulair) albuterol sulfate 90 mcg/actuation 1 inh inhalation QID PRN sob 08/19/22 09/19/22 History aerosol inhaler aripiprazole 5 mg tablet (Abilify) 5 mg PO QAM 08/19/22 09/19/22 History buprenorphine 15 mcg/hour weekly 1 patch transdermal Q7D 08/19/22 09/19/22 History transdermal patch calcium carbonate 600 mg-vitamin 1 tab PO BID 08/19/22 09/19/22 History D3 5 mcg (200 unit) tablet cholecalciferol (vitamin D3) 50 50 mcg PO BID 08/19/22 09/19/22 History mcg (2,000 unit) tablet (Vitamin D3) cyclobenzaprine 10 mg tablet 10 mg PO TID PRN Pain 08/19/22 09/19/22 History folic acid 1 mg tablet 5 mg PO QAM 08/19/22 09/19/22 History hydroxychloroquine 200 mg tablet See Rx Instructions .Route .COMPLEX 08/19/22 09/19/22 History (Plaquenil) immune glob,gamm(IgG) 10 %-pro-IgA IV 08/19/22 History 0 to 50 mcg/mL intravenous solution (Privigen) irbesartan 300 mg tablet 300 mg PO QAM 08/19/22 09/19/22 History levocetirizine 5 mg tablet 5 mg PO HS 08/19/22 09/19/22 History magnesium 250 mg tablet 500 mg PO HS 08/19/22 09/19/22 History metoprolol succinate 50 mg 100 mg PO QAM 08/19/22 09/19/22 History tablet,extended release 24 hr [id number] 8 mg-folic 400 1 tab PO QAM 08/19/22 09/19/22 History mcg-K 50 mcg-lutein 300 mcg tablet (Multivitamin Women 50 Plus) sulfasalazine 500 mg tablet 1,000 mg PO BID 08/19/22 09/19/22 History zinc 50 mg capsule 50 mg PO QAM 08/19/22 09/19/22 History hydrochlorothiazide 25 mg tablet 25 mg PO QAM 09/05/22 09/19/22 History cefadroxil 500 mg capsule 500 mg PO BID #28 caps 09/10/22 09/19/22 Rx naloxone 4 mg/actuation nasal 1 spray intranasal Q3M PRN opioid 09/10/22 09/19/22 Rx spray (Narcan) overdose #2 ea acetaminophen 500 mg tablet 1,000 mg PO Q8H PRN Pain 09/19/22 09/19/22 History (Tylenol Extra Strength) gabapentin 300 mg capsule See Rx Instructions .Route .COMPLEX 09/19/22 09/19/22 History gabapentin 600 mg tablet See Rx Instructions .Route .COMPLEX 09/19/22 09/19/22 History oxycodone 5 mg tablet 5 mg PO .Q4-6H PRN Pain 09/19/22 09/19/22 History rivaroxaban 10 mg tablet (Xarelto) 10 mg PO QAM 09/19/22 09/19/22 History venlafaxine 75 mg capsule,extended 75 mg PO DAILY 09/19/22 09/19/22 History release 24 hr Patient History Medical History Anxiety and depression Aortic stenosis Bicuspid AV- follows with [facility] Asthma uses rescue inhaler before exertion Bipolar disorder Chronic obstructive pulmonary disease At baseline Chronic pain Degenerative disc disease History of attempted suicide no current problems>follows with mental telehealth>([facility]; [facility]) History of COVID-19 03/2021>hospitalized for 2 weeks at [facility] *result of needing oxygen 15/09 Hypertension Hypoglycemia No diabetes or prediabetes per patient Kidney disease follows nephrology in [place]>stage 2 On home oxygen therapy 4l [place] Rheumatoid arthritis Follows with rheum- Dr Farrell- Brian Sleep apnea cpap SOB (shortness of breath) on exertion Surgical History History of back surgery anterior and posterior lumbar laminectomy and fusion (2 surgeries) History of bunionectomy rt/left History of section X2 History of colonoscopy History of dilatation and curettage History of repair of ACL RIGHT History of tooth extraction Hx of chest tube placement - SPONTANEOUS PNEUMOTHORAX; NO ISSUES SINCE Hx of sinus surgery X 4 Status post total right knee replacement using cement Arnold teeth removed Family History Father Family history of diabetes mellitus Other No family history of adverse response to anesthesia Social History Smoking Status: Never smoker Second Hand Exposure: Yes (as a child); Do You Dip or Chew Tobacco: No; Hx Alcohol Use: No Hx Substance Use: No Preferred Language: Croatian Communication Ability: Effective Visual Impairment: No Limitations Product Representative Required: No Beliefs That Will Affect Care: None Current Living Situation: Alone Other Information That Helps Us Care for You: No Feels Safe at Home: Yes Safety Concerns: Feels Safe At This Time Assistive Devices: Cane, Oxygen - Continuous and Walker Review of System A complete ROS was performed and is negative except as mentioned in the HPI. Physical Exam Physical Exam: GEN: Well-appearing, in NAD. RESP: No increased work of breathing EXT: Good ROM of R knee SKIN: R knee incision with cherry in place, no drainage. Mild erythema of R knee, distal medial thigh, and proximal medial calf. NEURO: Alert and oriented. Answers all questions appropriately. Speech not s lurred. PSYCH: Normal mood, affect appropriate. Results & Data Vital Signs (Past 12 Hours) Vital Signs Temp Pulse Resp BP Pulse Ox O2 Del Method O2 Flow Rate 09/23/22 07:13 36.6 C 72 16 147/80 H 98 Nasal Cannula 3 Laboratory Results Short CBC 09/23/22 Range/Units 06:19 WBC 5.95 (4.8-10.8) K/ul Hgb 9.9 L (12.0-16.0) g/dl Hct 29.9 L (37.0-47.0) % Plt Count 351 (130-400) K/uL BMP 09/23/22 06:19 Sodium 134 L Potassium 3.9 Chloride 94 L Carbon Dioxide 34 H BUN 24 H Creatinine 0.91 Glucose 117 H Calcium 9.9 Medications Administered Current Inpatient Medications Acetaminophen (Acetaminophen 500 Mg Tab) 1,000 mg PO Q8H PRN PRN Reason: Pain(1-4) or fever Stop: 10/19/22 22:39 Last Admin: 09/23/22 08:34 Dose: 1,000 mg Albuterol (Albuterol Hfa 8 Gm Inhaler) 1 puffs INH QID PRN PRN Reason: sob Stop: 10/19/22 22:39 Aripiprazole (Aripiprazole 5 Mg Tab) 5 mg PO QAM [facility] Stop: 10/20/22 08:59 Last Admin: 09/23/22 08:35 Dose: 5 mg Buprenorphine HCl (Buprenorphine 5 Mcg/Hr Tdsy) 15 mcg TD Th [facility] Stop: 10/25/22 08:59 Diphenoxylate HCl/Atropine (Diphenoxylate/Atropine 2.5/0.025mg Tab) 1 tab PO Q8H PRN PRN Reason: Diarrhea Stop: 10/22/22 06:59 Folic Acid (Folic Acid 1 Mg Tab) 5 mg PO QAM [facility] Stop: 10/20/22 09:59 Last Admin: 09/23/22 08:36 Dose: 5 mg Gabapentin (Gabapentin 300 Mg Cap) 300 mg PO TID [facility] Stop: 10/19/22 22:59 Last Admin: 09/23/22 08:37 Dose: 300 mg Gabapentin (Gabapentin 600 Mg Tab) 600 mg PO TID [facility] Stop: 10/19/22 22:59 Last Admin: 09/23/22 08:36 Dose: 600 mg Hydrochlorothiazide (Hydrochlorothiazide 25 Mg Tab) 25 mg PO QAM [facility] Stop: 10/20/22 08:59 Last Admin: 09/23/22 08:35 Dose: 25 mg Daptomycin 325 mg/ Syringe 6.5 mls @ 3.25 mls/min IV Q24H [facility]; Protocol Stop: 09/27/22 05:59 Last Admin: 09/23/22 05:49 Dose: 3.25 mls/min Losartan Potassium (Losartan Potassium 50 Mg Tab) 100 mg PO QAM [facility] Stop: 10/20/22 08:59 Last Admin: 09/23/22 08:35 Dose: 100 mg Magnesium Hydroxide (Magnesium Hydroxide Susp 30 Ml Udc) 30 ml PO Q6H PRN PRN Reason: Constipation Stop: 10/20/22 09:47 Last Admin: 09/21/22 18:34 Dose: 30 ml Magnesium Oxide (Magnesium Oxide 400 Mg Tab) 400 mg PO HS [facility] Stop: 10/19/22 23:14 Last Admin: 09/22/22 20:05 Dose: 400 mg Metoprolol Succinate (Metoprolol Succ 50mg Ext Rel Tab) 100 mg PO QAM [facility] Stop: 10/20/22 08:59 Last Admin: 09/23/22 08:36 Dose: 100 mg Miscellaneous (Remove & Waste Butrans Patch 1 Ea Ea) 1 each N/A Th@0859 [facility] Stop: 10/25/22 08:58 Miscellaneous (Check Buprenorphine Patch) 1 each N/A QS [facility] Stop: 10/20/22 07:59 Last Admin: 09/23/22 08:37 Dose: 1 each Montelukast Sodium (Montelukast Sodium 10 Mg Tablet) 10 mg PO QAM [facility] Stop: 10/20/22 10:29 Last Admin: 09/23/22 08:36 Dose: 10 mg Morphine Sulfate (Morphine Sulfate 2 Mg/Ml Carp) 2 mg IV Q4H PRN PRN Reason: Pain(5+) Stop: 10/03/22 21:16 Last Admin: 09/20/22 05:35 Dose: 2 mg Multivitamins (Multivitamin Tab) 1 tab PO QAM [facility] Stop: 10/20/22 09:59 Last Admin: 09/23/22 08:35 Dose: 1 tab Naloxone HCl (Naloxone Hcl 0.4 Mg/1 Ml Vial/Carp) 0.4 mg IV Q5M PRN PRN Reason: narcotic overdose Stop: 10/19/22 21:16 Oxycodone HCl (Oxycodone Hcl Ir 5 Mg Tab (Immediate Release)) 5 - 10 mg PO Q4H PRN PRN Reason: Pain Stop: 10/04/22 10:43 Last Admin: 09/23/22 08:34 Dose: 10 mg Polyethylene Glycol (Polyethylene (Miralax) 17 Gm Pack) 17 gm PO DAILY PRN PRN Reason: Constipation Stop: 10/20/22 00:21 Last Admin: 09/20/22 00:43 Dose: 17 gm Rivaroxaban (Rivar[facility]aban 10 Mg Tablet) [facility] Stop: 10/20/22 08:59 Last Admin: 09/23/22 08:37 Dose: 10 mg Senna/Docusate Sodium (Docusate Sodium/Senna 50/8.6mg Tab) 1 tab PO QAM [facility] Stop: 10/20/22 10:59 Last Admin: 09/23/22 08:36 Dose: 1 tab Venlafaxine HCl (Venlafaxine Hcl Xr 75 Mg Capxr) 75 mg PO QAM [facility] Stop: 10/20/22 08:59 Last Admin: 09/23/22 08:37 Dose: 75 mg
[2022-09-23] MEDS: MAGNESIUM OXIDE 400 MG TAB PO SCH (20:21)
[2022-09-23] MEDS: POLYETHYLENE (MIRALAX) 17 GM PACK PO PRN (20:22)
[2022-09-24] MEDS: CHECK BUPRENORPHINE PATCH SCH ×2 (00:09→08:16)
[2022-09-24] MEDS: oxyCODONE HCL IR 5 MG TAB (IMMEDIATE RELEASE) PO PRN ×3 (02:11→11:34)
[2022-09-24] MEDS: DAPTOmycin 325 MG in SYRINGE 0 ML IV SCH (05:32)
--- NOTE | 2022-09-24 07:46 | Orthopedic Progress Note ---
Date of Service September 24, 2022 Assessment & Plan (1) Cellulitis of right leg: Plan: Hospital day #5 cellulitis right lower extremity, 16 days status post right total knee arthroplasty. Patient has been on IV daptomycin. Cellulitis seems to be to improving daily. Still mild erythema lower leg and medial aspect of her knee. Low suspicion for septic total knee. Discussed with Dr. Jacobsen this morning. Question of discharging home with IV antibiotics for another several days. Infectious disease was consulted who recommended transition to oral linezolid at discharge. We will remove every other staple today. Remainder of cherry to be removed in the office next week. Patient is hoping for discharge today. Follow-up in the office next week for reevaluation. Admission and Anticipated Discharge Date Admission Date: September 21, 2022 Subjective Patient seen this morning resting in bed comfortably. Her pain is well controlled. Knee pain within expected range for recent total knee arthroplasty. Her cellulitis continues to improve on IV antibiotics. No other complaints. Denies chest pain, shortness of breath, nausea/vomiting/diarrhea, headaches or dizziness. Review of Systems Review of Systems: All systems reviewed & are unremarkable except as noted in Subjective Physical Exam Physical Exam: Right knee: Incision is clean, dry, intact. Yarnell are in place. No drainage. Lower leg erythema improved from previous exam. There is mild erythema medial aspect of the knee. No calf tenderness. She is able to do a straight leg raise. No pain with gentle range of motion of her knee. Range of motion is 0 to 85 degrees. Distal neurovascular status and sensation is grossly intact. Constitutional: WD/WN, vitals as above Results & Data Vital Signs (Past 12 Hours) Vital Signs Temp Pulse Resp BP Pulse Ox O2 Del Method O2 Flow Rate 09/24/22 05:31 36.8 C 85 16 169/85 H 96 Nasal Cannula 3 09/23/22 21:32 Nasal Cannula 3 09/23/22 21:17 37.1 C 68 16 134/78 96 Nasal Cannula 3
[2022-09-24] MEDS: hydroCHLOROthiazide 25 MG TAB PO SCH (08:10)
[2022-09-24] MEDS: GABAPENTIN 300 MG CAP PO SCH (08:10)
[2022-09-24] MEDS: VENLAFAXINE HCL XR 75 MG CAPXR PO SCH (08:11)
[2022-09-24] MEDS: METOPROLOL SUCC 50MG EXT REL TAB PO SCH (08:11)
[2022-09-24] MEDS: MONTELUKAST SODIUM 10 MG TABLET PO SCH (08:11)
[2022-09-24] MEDS: LOSARTAN POTASSIUM 50 MG TAB PO SCH (08:11)
[2022-09-24] MEDS: MULTIVITAMIN TAB PO SCH (08:12)
[2022-09-24] MEDS: RIVAROXABAN 10 MG TABLET PO SCH (08:12)
[2022-09-24] MEDS: ARIPiprazole 5 MG TAB PO SCH (08:12)
[2022-09-24] MEDS: FOLIC ACID 1 MG TAB PO SCH (08:12)
[2022-09-24] MEDS: DOCUSATE SODIUM/SENNA 50/8.6MG TAB PO SCH (08:13)
[2022-09-24] MEDS: GABAPENTIN 600 MG TAB PO SCH (08:13)
[2022-09-24] MEDS: ACETAMINOPHEN 500 MG TAB PO PRN (08:18)
[2022-09-24 09:23] LABS: BUN Creatinine Ratio 28.7 (10-20); C Reactive Protein 9.42 mg/dl (0-0.5); Calcium 10.1 mg/dl (8.6-10.3); Creatinine Clr Calc Pharmacy 72.4 ml/min; Est GFR (African American) 69.6 ml/min; Potassium 4.1 mmol/L (3.5-5.1)
--- NOTE | 2022-09-24 10:19 | Discharge Summary ---
Date of Service September 24, 2022 Admission HPI Per Admitting Provider Anabel is a 62yo female with PMHx significant for COPD (on chronic O2, 4L since COVID infection), MAGNOLIA, bicuspic aortic valve, HTN, RA, bipolar disorder, and S/P Right Total Knee Arthroplasty(Right), removal deep hardware(peek interference screw) from previous ACL repair with Dr. Jacobsen on 09/08 who presented to the [facility] ED at the recommendation of the Orthopedic clinic due to concerns for RLE infection. In the ED vitals were stable. Labs were significant for a platelet count of 410, sodium of 133, negative procal and covid 19 negative. Chest xray was read as "No significant change compared to the prior study. No acute process.". The ED staff spoke with Orthopedic Surgery who recently evaluated the patient. No concerns for intraarticular infection at this time, does not recommend additional imaging for now. Recommends IV antibiotics, they will continue to follow. Prior to admission the patient was given a dose of Vancomycin and ceftriaxone. At the time of the exam the patient was lying in bed in no acute distress. She states that she had been doing well post-op and had been taking her Xarelto for DVT PPX and Cefadroxil since her initial discharge. Starting on 09/16 the patient started to develop progressively worsening erythema, warm, and tenderness of the RLE. She states that as of today the erythema had spread up to her right mid thigh. She went to the [facility] ED on 09/17 where they gave her a dose of Vancomycin and another antibiotic she cannot remember the name of. She confirmed that they obtained a RLE venous doppler at that visit which was negative. They discharged her on Amoxicillin at that time. She was seen today in the Orthopedic clinic, due to concerns for progressively worsening cellulitis she was sent to the ED. She denies recent fever, chills,chest pain, SOB, abd pain, nausea, vomiting, diarrhea, paresthesias, dysuria, hematuria, melena, and recent trauma. She is a full code and would want her daughter to make medical decisions for her if she cannot make them herself. Please refer to Dr. Castillo's attestation for any changes to the treatment plan Principal Diagnosis cellulitis of right leg Discharge Exam General: WD/WN obese female sitting up in bed, NAD, reporting slight headache HEENT: head normocephalic, atraumatic, mmm, trachea midline, pupils equal/reactive Resp: don baseline 3L NC CV: RRR, +systolic murmur, edema to RLE from cellulitis with no significant improvement from yesterday GI: +BS, soft/NT : no jean MSK/Neuro:R TKA cherry in place, no active drainage. decreased swelling and erythema reported, decreased pain. some pain w/ ROM, sensation intact Psych: AOx3, cooperative with exam Discharge Data Allergies Allergy/AdvReac Type Severity Reaction Status Date / Time levofloxacin [From Levaquin] Allergy Intermediate Rash Verified 09/19/22 19:16 clarithromycin [From Biaxin] AdvReac Mild Gastrointestinal Verified 09/19/22 19:16 Upset lamotrigine [From Lamictal] AdvReac Mild TREMORS Verified 09/19/22 19:16 perphenazine AdvReac Mild TREMORS Verified 09/19/22 19:16 Consultations 09/19/22 19:44 ED Decision to Admit Stat 09/19/22 19:45 Consult Orthopedic Surgery Routine 09/23/22 09:01 Consult Infectious Diseases Routine Hospital Course (1) Cellulitis of right leg: Developed cellulitis following her TKA 09/08 (outside hospital NEGATIVE US VENOUS Doppler reported, never missed dose Xarelto) GIven IV abx at [facility] ER on 09/17 and [place] on Amoxicillin with progression of cellulitis In ER, given Vanco/Rocephin Dapto due to BMI/immunocompromised state Only received admit dose of cefepime. Consulted ID: improved on Linezolid, will complete 10 day course of antibiotics, treated initially with daptomycin. Ortho on consult BLood cultures remain NGTD WBC wnl/afebrile PT/OT consulted DVT proph: Xarelto lasix 20mg PO x 1 again today given stable kidney function/no significant dehydration on exam to help with swelling Consultation placed for ID to see if recs for pseudomonal coverage or not --> she follows w/ Dr Guerrero monthly for IVIG, would like records forwards at [place] and can have outpt ID follow up with them as well Pain control/elevation (2) Chronic pain: Continue home Butrans patch, changed q7Days (today is day # 6) Continue gabapentin Tylenol & PO/IV opiates ordered as needed Bowel regimen Reports controlled pain w/ ordered medications Discussed having her reschedule her epidural injection given acute infection (3) Status post total right knee replacement using cement: -Surgical site appears intact and without drainage -Ortho consult placed as above, rec continuing inpatient stay overnight until see by them in AM (4) Bipolar disorder: Continue Abilify , mood stable (5) Rheumatoid arthritis: -Hold sulfasalazine and Plaquenil for now -- discussed w/ patient would not resume until discussed w/ rheumatology AFTER her infection has resolved Symptoms stable for joint pain at present (6) Hypertension: Continues on HCTZ, losartan, metoprolol Lasix for edema as above BP stable in setting of pain (7) Sleep apnea: HS CPAP ordered (8) Chronic obstructive pulmonary disease: Chronic hypoxic respiratory failure On baseline 4L NC but uses 3L at rest Continue O2 at 4L NC for goal SpO2 of 88-92% Total Time Total Time Spent Total Time Spent (In Minutes): 35 Discharge Plan Discharge Items Patient Disposition: Home - Home Health Services Reason For Visit: CECLLULITIS OF RLE Discharge Diagnosis: cellulitis Activity: Resume your previous activity Non-emergency contact: Primary Care Provider Call non-emergency contact if: you have any medication questions Follow-up/Referrals: Prabhjot Jacobsen MD [Surgeon] - 09/25/22 1:30 pm (Please keep appointment scheduled on 09/25/22 @ 1:30) Allegra Novoa M.D. [Primary Care Provider] - (Dr. Novoa's office will call you with a follow up appointment) Cortez Guerrero DO [Physician] - (Office will call you with a follow up appointment) Diet: Heart Healthy Addtl Attending Provider Instructions: You have been hospitalized for a cellulitis of the leg. Orthopedics was consulted and recommended IV antibiotics while inpatient and we consulted infectious disease, Dr Polk, who is recommending discharge on Linezolid 600mg by mouth twice daily for an additional 5 days through 09/29/2022 to complete a 10 day course. You will have received your IV dose of Daptomycin this morning and should start the Linezolid tomorrow as instructed. You have been counseled by infectious disease to monitor for any signs/symptoms of serotonin syndrome with your venlafaxine medication but risks are felt to be very low. Call your doctor immediately if those symptoms occur including agitation/restlessness, insomnia, confusion, rapid heart rate, muscle rigidity, etc. Your discharge will be sent to Dr Guerrero as requested for continued follow up /IVIG infusions. You should follow up with Dr Jacobsen in a week for check-up since hospitalization. Please follow up with primary care within 7-10 days after discharge from the hospital to monitor your progress. Please return to the ER for any worsening pain, redness, swelling, fever, or for any other symptoms concerning for you. It has been a pleasure being a part of the medical team providing for you while you have been in the hospital. Take care! Pending Studies at Discharge: Yes Studies:: blood cultures -- no growth to date Stand-Alone Forms: [facility] Intelligent Fingerprinting, Smoking Cessation Medications and DC Order Prescriptions: New linezolid 600 mg tablet 600 mg PO BID 5 Days Qty: 10 0RF sennosides-docusate sodium [Senokot-S] 8.6-50 mg Tablet 1 tab PO QAM Qty: 30 0RF Continued montelukast [Singulair] 10 mg Tablet 10 mg PO QAM cyclobenzaprine 10 mg Tablet 10 mg PO TID PRN (Reason: Pain) metoprolol succinate 50 mg Tablet Extended Release 24 Hr 100 mg PO QAM calcium carbonate-vitamin D3 600 mg-5 mcg (200 unit) Tablet 1 tab PO BID folic acid 1 mg Tablet 5 mg PO QAM magnesium 250 mg Tablet 500 mg PO HS albuterol sulfate 90 mcg/actuation Hfa Aerosol Inhaler 1 inh INHALATION QID PRN (Reason: sob) irbesartan 300 mg Tablet 300 mg PO QAM aripiprazole [Abilify] 5 mg Tablet 5 mg PO QAM zinc 50 mg Capsule 50 mg PO QAM Rx Instructions: administer on empty stomach, at least 1 hour before or after meal(s) levocetirizine 5 mg Tablet 5 mg PO HS cholecalciferol (vitamin D3) [Vitamin D3] 50 mcg (2,000 unit) Tablet 50 mcg PO BID Multivitamin Women 50 Plus 8 mg iron-400 mcg-300 mcg Tablet 1 tab PO QAM buprenorphine 15 mcg/hour Patch Weekly 1 patch TRANSDERMAL Q7D Patient Comments: changes on saturdays Rx Instructions: Privigen 10 % Solution IV Rx Instructions: once monthly infusion (home nursing) hydrochlorothiazide 25 mg Tablet 25 mg PO QAM naloxone [Narcan] 4 mg/actuation spray,non-aerosol 1 spray intranasal Q3M PRN (Reason: opioid overdose) Qty: 2 0RF oxycodone 5 mg tablet 5 mg PO .Q4-6H PRN (Reason: Pain) gabapentin 600 mg tablet See Rx Instructions .ROUTE .COMPLEX Rx Instructions: Take 600mg with 300mg by mouth three times daily for a dose of 900mg acetaminophen [Tylenol Extra Strength] 500 mg tablet 1,000 mg PO Q8H PRN (Reason: Pain) gabapentin 300 mg capsule See Rx Instructions .ROUTE .COMPLEX Rx Instructions: Take 300mg with 600mg by mouth three times daily for a dose of 900mg Xarelto 10 mg tablet 10 mg PO QAM venlafaxine 75 mg capsule,extended release 24hr 75 mg PO DAILY Held sulfasalazine 500 mg Tablet 1,000 mg PO BID Hold Instructions: Resume on 09/30/22. Rx Instructions: give with food (meal/snack) hydroxychloroquine [Plaquenil] 200 mg Tablet See Rx Instructions .ROUTE .COMPLEX Hold Instructions: Resume on 09/30/22. resume after stopping antibiotics Patient Comments: takes 2 tablets on even days/1 tablet on odd days Rx Instructions: Take 400mg by mouth on even days and 200mg by mouth on odd days. Discontinued cefadroxil 500 mg capsule 500 mg PO BID Qty: 28 0RF Rx Instructions: Start Date 09/10/22 - End Date 09/24/22 Discharge Orders: Discharge Order (Routine); Ordered 09/24/22 Ordered By: Chance Verma/Other Patient Handouts: Linezolid Oral Tablet, Cellulitis Dc Admission Data Admit Date/Time: 09/21/22 18:58 Attending Provider: Chance Null Admit Provider: Nasim Castillo Primary Care Provider: Allegra Novoa Other Providers: Nasim Castillo ; Nino Lyons ; Honey Bower ; Lucas Levy ; Inessa Polk ; Cesar Aldana ; Savanah Thayer ; Suzi Alexander ; Reema Aden ; Brain Stock ; Debbi Brush Other Interventions: Discharge Summary Assessment (RN) Last Done: 09/24/22 10:06 Coding Level of Care Code 29390 INP/OBS DISCH >30 MIN Diagnoses Cellulitis of right leg L03.115 Chronic pain G89.29 Status post total right knee replacement using cement Z96.651 Bipolar disorder F31.9 Rheumatoid arthritis M06.9 Hypertension I10 Sleep apnea G47.30 Chronic obstructive pulmonary disease J44.9
[2022-09-25] MEDS ORDERED: BUPRENORPHINE 5 MCG/HR TDSY TD SCH (09:00)
== END 2022-09-24 14:00 | disposition home health service (06) | DRG 603 ==
LOC: 3N 15:45 → ED 15:45 → SUATTDRO 20:35 → 3N 21:40

== ENCOUNTER 2024-04-08 07:55 | Inpatient (IN) ==
--- NOTE | 2024-03-28 16:00 | PAT Medication Instructions ---
Medication Instructions Date of Service March 28, 2024 Home Medications Medication Instructions Recorded naloxone 4 mg/actuation nasal 1 spray intranasal Q3M PRN opioid 09/10/22 spray (Narcan) overdose #2 ea montelukast 10 mg tablet (Singulair) 10 mg PO QAM albuterol sulfate 90 mcg/actuation aerosol inhaler 1 inh inhalation QID PRN sob aripiprazole 5 mg tablet (Abilify) 5 mg PO QAM calcium 600 mg (as carbonate)-vitamin D3 5 mcg (200 unit) tablet 2 tab PO HS cholecalciferol (vitamin D3) 50 mcg (2,000 unit) tablet (Vitamin D3) 50 mcg PO HS folic acid 1 mg tablet 5 mg PO QAM immune glob,gamm(IgG) 10 %-pro-IgA 0 to 50 mcg/mL intravenous solution (Privigen) 1 g IV Q30D irbesartan 300 mg tablet 300 mg PO QAM levocetirizine 5 mg tablet 5 mg PO HS magnesium 250 mg tablet 500 mg PO HS metoprolol succinate 50 mg tablet,extended release 24 hr 100 mg PO QAM Multivitamin Women 50 Plus 1 tab PO QAM sulfasalazine 500 mg tablet 1,000 mg PO BID zinc 50 mg capsule 50 mg PO HS hydrochlorothiazide 25 mg tablet 25 mg PO QAM naloxone 4 mg/actuation nasal spray (Narcan) 1 spray intranasal Q3M PRN opioid overdose Evenity 1 dose INJ Q30D bisacodyl 5 mg tablet 25 mg PO HS duloxetine 20 mg capsule,delayed release 20 mg PO QAM furosemide 20 mg tablet 20 mg PO UD PRN Edema gabapentin 800 mg tablet 800 mg PO QID ibuprofen 200 mg capsule 400 mg PO Q6H PRN Pain lactase 3,000 unit tablet (Lactaid) 3,000 unit PO AC PRN Lactose Intolerance mometasone 220 mcg/actuation(120 doses)breath activated powder inhaler (Asmanex Twisthaler) 2 inh inhalation BID oxycodone-acetaminophen 7.5 mg-325 mg tablet 1 tab PO QID PRN Pain potassium 99 mg tablet 198 mg PO HS tiotropium 2.5 mcg-olodaterol 2.5 mcg/actuation mist for inhalation (Stiolto Respimat) 2 puff inhalation QAM Continue as directed naloxone 4 mg/actuation nasal spray (Narcan) 1 spray intranasal Q3M PRN opioid overdose (if needed) ASK your surgeon for instructions ibuprofen 200 mg capsule 400 mg PO Q6H PRN Pain ASK your prescriber and surgeon aripiprazole 5 mg tablet (Abilify) 5 mg PO QAM immune glob,gamm(IgG) 10 %-pro-IgA 0 to 50 mcg/mL intravenous solution (Privigen) 1 g IV Q30D sulfasalazine 500 mg tablet 1,000 mg PO BID Evenity 1 dose INJ Q30D DO NOT take the morning of surgery montelukast 10 mg tablet (Singulair) 10 mg PO QAM folic acid 1 mg tablet 5 mg PO QAM irbesartan 300 mg tablet 300 mg PO QAM Multivitamin Women 50 Plus 1 tab PO QAM hydrochlorothiazide 25 mg tablet 25 mg PO QAM furosemide 20 mg tablet 20 mg PO UD PRN Edema lactase 3,000 unit tablet (Lactaid) 3,000 unit PO AC PRN Lactose Intolerance Take morning of surgery With a small sip of water, OTHERWISE NOTHING TO EAT OR DRINK AFTER MIDNIGHT: albuterol sulfate 90 mcg/actuation aerosol inhaler 1 inh inhalation QID PRN sob (use if needed; please bring rescue inhaler with you to hospital day of surgery if possible) aripiprazole 5 mg tablet (Abilify) 5 mg PO QAM metoprolol succinate 50 mg tablet,extended release 24 hr 100 mg PO QAM duloxetine 20 mg capsule,delayed release 20 mg PO QAM gabapentin 800 mg tablet 800 mg PO QID mometasone 220 mcg/actuation(120 doses)breath activated powder inhaler (Asmanex Twisthaler) 2 inh inhalation BID oxycodone-acetaminophen 7.5 mg-325 mg tablet 1 tab PO QID PRN Pain (if needed) tiotropium 2.5 mcg-olodaterol 2.5 mcg/actuation mist for inhalation (Stiolto Respimat) 2 puff inhalation QAM Take evening before surgery albuterol sulfate 90 mcg/actuation aerosol inhaler 1 inh inhalation QID PRN sob (if needed) calcium 600 mg (as carbonate)-vitamin D3 5 mcg (200 unit) tablet 2 tab PO HS cholecalciferol (vitamin D3) 50 mcg (2,000 unit) tablet (Vitamin D3) 50 mcg PO HS levocetirizine 5 mg tablet 5 mg PO HS magnesium 250 mg tablet 500 mg PO HS zinc 50 mg capsule 50 mg PO HS bisacodyl 5 mg tablet 25 mg PO HS furosemide 20 mg tablet 20 mg PO UD PRN Edema (if needed) gabapentin 800 mg tablet 800 mg PO QID lactase 3,000 unit tablet (Lactaid) 3,000 unit PO AC PRN Lactose Intolerance (if needed) mometasone 220 mcg/actuation(120 doses)breath activated powder inhaler (Asmanex Twisthaler) 2 inh inhalation BID oxycodone-acetaminophen 7.5 mg-325 mg tablet 1 tab PO QID PRN Pain (if needed) potassium 99 mg tablet 198 mg PO HS Other Notes If you have any questions please call us at [phone] or [phone] or [phone] or [phone]
--- NOTE | 2024-03-30 11:37 | Anesthesiology Consultation ---
Date of Service March 30, 2024 Assessment & Plan (1) Encounter for pre-operative examination: - awaiting: echocardiogram 04/01/24 ANA Cormier. cardiology clearance note from Dr. Naseem Cormier cardiology. medical clearance note 04/04/24 Dr. Milvia Cormier. pulmonology clearance note 03/28/[address] 2023 [facility] [place]. - Outpatient joint assessment: Patient is currently scheduled for inpatient pathway. If re-evaluated and patient/surgeon requests outpatient pathway, patient is not ideal candidate for outpatient joint program from anesthesia standpoint. Chart Review Chart Review: Pending: Refer to Additional Notes / Consult section and Patient seen in Pre Admission Testing Teaching & Discussion Pre-Anesthesia Teaching/Discussion Notes: Instructed NPO after midnight before surgery, except medications with 15 cc of water. Medication instructions provided according to the PAT guidelines. History Surgery Operation Date: 04/08/24 10:55 Proposed Procedures p Left Total Knee Arthroplasty - Prabhjot Jacobsen MD Height/Weight Height: 5 ft 1 in Weight: 119.3 kg Allergies Allergy/AdvReac Type Severity Reaction Status Date / Time levofloxacin [From Levaquin] Allergy Intermediate Rash Verified 03/25/24 09:20 clarithromycin [From Biaxin] AdvReac Mild Gastrointestinal Verified 03/25/24 09:20 Upset lamotrigine [From Lamictal] AdvReac Mild TREMORS Verified 03/25/24 09:20 perphenazine AdvReac Mild TREMORS Verified 03/25/24 09:20 erythromycin base AdvReac unable to Verified 03/25/24 09:20 urinate Medications Home Medications Medication Instructions Recorded Confirmed Last Taken montelukast 10 mg tablet 10 mg PO QAM 10/28/17 03/25/24 09/19/22 (Singulair) albuterol sulfate 90 mcg/actuation 1 inh inhalation QID PRN sob 08/19/22 03/25/24 09/08/22 04:00 aerosol inhaler aripiprazole 5 mg tablet (Abilify) 5 mg PO QAM 08/19/22 03/25/24 09/19/22 calcium 600 mg (as 2 tab PO HS 08/19/22 03/25/24 09/19/22 carbonate)-vitamin D3 5 mcg (200 unit) tablet cholecalciferol (vitamin D3) 50 50 mcg PO HS 08/19/22 03/25/24 09/19/22 mcg (2,000 unit) tablet (Vitamin D3) folic acid 1 mg tablet 5 mg PO QAM 08/19/22 03/25/24 09/19/22 immune glob,gamm(IgG) 10 %-pro-IgA 1 g IV Q30D 08/19/22 03/25/24 09/10/22 0 to 50 mcg/mL intravenous solution (Privigen) irbesartan 300 mg tablet 300 mg PO QAM 08/19/22 03/25/24 09/19/22 levocetirizine 5 mg tablet 5 mg PO HS 08/19/22 03/25/24 09/18/22 magnesium 250 mg tablet 500 mg PO HS 08/19/22 03/25/24 09/18/22 metoprolol succinate 50 mg 100 mg PO QAM 08/19/22 03/25/24 09/19/22 tablet,extended release 24 hr [id number] 8 mg-folic 400 1 tab PO QAM 08/19/22 03/25/24 09/19/22 mcg-K 50 mcg-lutein 300 mcg tablet (Multivitamin Women 50 Plus) sulfasalazine 500 mg tablet 1,000 mg PO BID 08/19/22 03/25/24 09/19/22 zinc 50 mg capsule 50 mg PO HS 08/19/22 03/25/24 09/19/22 hydrochlorothiazide 25 mg tablet 25 mg PO QAM 09/05/22 03/25/24 09/19/22 naloxone 4 mg/actuation nasal 1 spray intranasal Q3M PRN opioid 09/10/22 03/25/24 Unknown spray (Narcan) overdose #2 ea Evenity 1 dose INJ Q30D 03/25/24 03/25/24 Unknown bisacodyl 5 mg tablet 25 mg PO HS 03/25/24 03/25/24 Unknown duloxetine 20 mg capsule,delayed 20 mg PO QAM 03/25/24 03/25/24 Unknown release furosemide 20 mg tablet 20 mg PO UD PRN Edema 03/25/24 03/25/24 Unknown gabapentin 800 mg tablet 800 mg PO QID 03/25/24 03/25/24 Unknown ibuprofen 200 mg capsule 400 mg PO Q6H PRN Pain 03/25/24 03/25/24 Unknown lactase 3,000 unit tablet (Lactaid) 3,000 unit PO AC PRN Lactose 03/25/24 03/25/24 Unknown Intolerance mometasone 220 mcg/actuation(120 2 inh inhalation BID 03/25/24 03/25/24 Unknown doses)breath activated powder inhaler (Asmanex Twisthaler) oxycodone-acetaminophen 7.5 mg-325 1 tab PO QID PRN Pain 03/25/24 03/25/24 Unknown mg tablet potassium 99 mg tablet 198 mg PO HS 03/25/24 03/25/24 Unknown tiotropium 2.5 mcg-olodaterol 2.5 2 puff inhalation QAM 03/25/24 03/25/24 Unknown mcg/actuation mist for inhalation (Stiolto Respimat) tirzepatide (weight loss) 5 mg/0.5 mg subcut WK 03/30/24 Unknown mL subcutaneous solution (Zepbound) Additional Notes: It was corrected on medication instructions that patient is to continue aripiprazole (Abilify) and montelukast (Singulair). Zepound to be held one week prior to surgery-also written on provided medication instructions. She verbalized understanding, denied questions or concerns. Past Medical History Medical History (Updated 03/30/24 @ 14:36 by Cici Hough PA-C) Anxiety and depression Aortic stenosis Bicuspid AV- follows with [facility] Asthma controlled, stable per pt; uses albuterol inhaler twice daily Bipolar disorder Bursitis left forearm, received recent cortisone injection, "still has some swelling" Chronic pain COPD (chronic obstructive pulmonary disease) with emphysema f/u dr. liu, [facility]>clearance appt 03/28/24 for sx. Degenerative disc disease History of attempted suicide no current problems>follows with mental telehealth>([facility]; [facility]) History of COVID-19 (~2021) 03/2021>hospitalized for 2 weeks at [facility] *result of needing oxygen 15/09 Hypertension controlled, stable per pt Hypoglycemia No diabetes or prediabetes per patient Immune deficiency disorder Gets IVIG infusions- next infusion scheduled 04/01/24 (follows with Dr. Guerrero, Infectious Disease) Kidney disease follows nephrology in [place]>"no longer stage 2, has gotten better, and only has to see nephrology once per year now" On home oxygen therapy 4L O2, continous Post-nasal drip chronic non-productive cough per patient-stable, denies change or worsening Rheumatoid arthritis f/u [facility] Sleep apnea CPAP on supplemental oxygen SOB (shortness of breath) on exertion chronic, with activity, denies change or worsening Patient denies h/o stroke, seizures, heart attack, heart failure, DM, blood clots/DVTs or blood transfusions. Exercise / Class Metabolic Activity III < 4 Walking/Shop/Light housework (ambulates with walker, shortness of breath with usual activities which is chronic, denies chest discomfort) Past Family History Family History Father Family history of diabetes mellitus Other No family history of adverse response to anesthesia Past Surgical History Surgical History (Updated 03/30/24 @ 11:50 by Cici Hough PA-C) History of back surgery anterior and posterior lumbar laminectomy and fusion (2 surgeries), 2019 and 2020 "needs back sx from bra line to pelvis per , but will not do the surgery due to her being on oxygen" History of bunionectomy rt/left History of section X2 History of colonoscopy History of dilatation and curettage History of repair of ACL rt History of surgery on wrist , bilat 2/2 to suicide attempt History of tooth extraction History of total right knee replacement Hx of cardiac cath 2019, [facility] corm[facility], no stents; f/u [facility] Hx of chest tube placement - spontaneous pneumothorax, no issues since Hx of sinus surgery X 4 [place] teeth removed Past Anesthesia History No Hx of Anesthesia Complications and No Family Hx of Anesthesia Complications History of PONV No Hx of PONV and No Hx of Motion Sickness Social History Smoking Status: Former smoker tobacco type: cigarettes Do You Dip or Chew Tobacco: No Smoking End Date: quit age 61 Hx Alcohol Use: Yes (none for years) Alcohol type: hard liquor alcohol intake frequency: holidays/special occasions only Hx Substance Use: No substance use type: does not use Review of Systems Patient denies chest pain, reflux, fever, chills, wheezing, or palpitations. Physical Exam Vital Signs Vitals BP 124/71 P 71 TEMP 98.3 SP02 97% on RA RESP 18 Physical Patient resting comfortably in chair in no acute distress, alert and oriented, responding appropriately throughout visit Full cervical extension range of motion without pain TMD 3 finger breadths Mallampati Score 3 Dentition: several loose teeth, denies chipped teeth, caps/crowns, implants or bridges Lungs: normal respiratory effort. Good air movement, clear throughout to auscultation, no adventitious breath sounds Cardiac: regular rate and rhythm, no murmurs noted Carotid arteries: negative bruit bilat Lab Results Anesthesia Preop Results Results Anesthesia Widget: WBC 7.36 K/ul (4.8-10.8) 03/30/24 Hgb 12.2 g/dl (12.0-16.0) 03/30/24 Hct 37.1 % (37.0-47.0) 03/30/24 Plt 211 K/uL (130-400) 03/30/24 Na 136 mmol/L (136-145) 03/30/24 K 4.1 mmol/L (3.5-5.1) 03/30/24 Cl 100 mmol/L (98-107) 03/30/24 CO2 32 mmol/L (21-32) 03/30/24 BUN 19 mg/dl (6-23) 03/30/24 Creat 0.89 mg/dl (0.6-1.2) 03/30/24 Glucose Level 91 mg/dl (70-99(Fasting)) 03/30/24 PT 10.9 Seconds (9.0-12.0) 03/30/24 PTT 27 Seconds (21-31) 03/30/24 INR 1.0 (0.9-1.1) 03/30/24 Urine Color Yellow 03/30/24 Urine Appearance Clear (Clear) 03/30/24 Urine pH 5.5 (4.5-7.5) 03/30/24 Urine Specific [place] 1.020 (1.000-1.030) 03/30/24 Urine Protein Negative (Negative) 03/30/24 Urine Glucose (UA) Negative (Negative) 03/30/24 Urine Ketones Negative (Negative) 03/30/24 Urine Blood Negative (Negative) 03/30/24 Urine Nitrite Negative (Negative) 03/30/24 Urine Bilirubin Negative (Negative) 03/30/24 Urine Urobilinogen Negative (Negative) 03/30/24 Urine Leukocyte Esterase Negative (Negative) 03/30/24 Blood Type AB Negative 03/30/24 Antibody Screen NEGATIVE 03/30/24 Testing Laboratory Results A1c: 5.6% Electrocardiogram Date: 03/30/24 NSR, rate 64 bpm Echocardiogram Date: 08/29/21 EF 60-65% No obvious RWMA Mild to moderate , aortic valve not well seen, MG 23 mmHg, DVI ~0.5 Grade I diastolic dysfunction Cardiac Catheterization Date: 02/15/20 Right heart cath Increased pulmonary vascular resistance could suggest some degree of pulmonary hypertension however do not fulfill diagnostic criteria for pulmonary hype rtension Cervical Spine Date: 03/30/24 FINDINGS: There is severe degenerative disc disease at the lower cervical spine. There is progressive grade 1 anterolisthesis of C4 on 5. There is minimal grade 1 anterolisthesis of C3 on 4. The anterolisthesis of C3 on C4 and C4 on 5 reduces with extension. No fracture seen. IMPRESSION: Translational motion at C3-4 and C4-5.
--- NOTE | 2024-04-06 19:18 | History & Physical Report ---
Date of Service April 06, 2024 Assessment & Plan (1) Tibial plateau fracture, left: Plan: 63-year-old female with history of successful right knee replacement now with acute tibial plateau fracture related insufficiency fracture. Nonsurgical management will be unsuccessful. Surgery however will require revision tibial component with stem with augment medially possibly constrained polyethylene if needed. Encounter type: initial encounter Fracture type: closed Qualified Code(s): S82.142A - Displaced bicondylar fracture of left tibia, initial encounter for closed fracture (2) Osteoarthritis of left knee: Osteoarthritis type: primary Qualified Code(s): M17.12 - Unilateral primary osteoarthritis, left knee (3) Rheumatoid arthritis: Rheumatoid arthritis location: knee Rheumatoid factor presence: unspecified presence Laterality: left Qualified Code(s): M06.9 - Rheumatoid arthritis, unspecified History of Present Illness Chief Complaint: Acute progressive left knee pain Primary Care Provider: Allegra Novoa 63-year-old female with acute progressive left knee pain with known osteoarthritis of the knee history of injections and conservative management. Weight loss recommended prior to knee replacement however patient developed the medial tibial plateau stress fracture now with comminuted fracture medial tibia with collapse posterior medial tibial plateau. Patient denies headaches, sweats, fevers, chills, double vision, blurred vision, cough, sore throat, dysphagia, chest pain, sob at rest, wheezing, n/v/d/c, numbness, tingling, fatigue, urinary symptoms. ROS positive for bicuspid aortic valve with heart murmur with asthma chronic cough COPD uses CPAP and oxygen. Shortness of breath with activity arthritis multiple joints including spine chronic back pain obesity on diet medication. Allergies Allergy/AdvReac Type Severity Reaction Status Date / Time levofloxacin [From Levaquin] Allergy Intermediate Rash Verified 03/25/24 09:20 clarithromycin [From Biaxin] AdvReac Mild Gastrointestinal Verified 03/25/24 09:20 Upset lamotrigine [From Lamictal] AdvReac Mild TREMORS Verified 03/25/24 09:20 perphenazine AdvReac Mild TREMORS Verified 03/25/24 09:20 erythromycin base AdvReac unable to Verified 03/25/24 09:20 urinate Home Medications Medication Instructions Recorded Confirmed Type montelukast 10 mg tablet 10 mg PO QAM 10/28/17 03/25/24 History (Singulair) albuterol sulfate 90 mcg/actuation 1 inh inhalation QID PRN sob 08/19/22 03/25/24 History aerosol inhaler aripiprazole 5 mg tablet (Abilify) 5 mg PO QAM 08/19/22 03/25/24 History calcium 600 mg (as 2 tab PO HS 08/19/22 03/25/24 History carbonate)-vitamin D3 5 mcg (200 unit) tablet cholecalciferol (vitamin D3) 50 50 mcg PO HS 08/19/22 03/25/24 History mcg (2,000 unit) tablet (Vitamin D3) folic acid 1 mg tablet 5 mg PO QAM 08/19/22 03/25/24 History immune glob,gamm(IgG) 10 %-pro-IgA 1 g IV Q30D 08/19/22 03/25/24 History 0 to 50 mcg/mL intravenous solution (Privigen) irbesartan 300 mg tablet 300 mg PO QAM 08/19/22 03/25/24 History levocetirizine 5 mg tablet 5 mg PO HS 08/19/22 03/25/24 History magnesium 250 mg tablet 500 mg PO HS 08/19/22 03/25/24 History metoprolol succinate 50 mg 100 mg PO QAM 08/19/22 03/25/24 History tablet,extended release 24 hr gdyojlss-[id number]-[id number] 8 mg-folic 400 1 tab PO QAM 08/19/22 03/25/24 History mcg-K 50 mcg-lutein 300 mcg tablet (Multivitamin Women 50 Plus) sulfasalazine 500 mg tablet 1,000 mg PO BID 08/19/22 03/25/24 History zinc 50 mg capsule 50 mg PO HS 08/19/22 03/25/24 History hydrochlorothiazide 25 mg tablet 25 mg PO QAM 09/05/22 03/25/24 History naloxone 4 mg/actuation nasal 1 spray intranasal Q3M PRN opioid 09/10/22 03/25/24 Rx spray (Narcan) overdose #2 ea Evenity 1 dose INJ Q30D 03/25/24 03/25/24 History bisacodyl 5 mg tablet 25 mg PO HS 03/25/24 03/25/24 History duloxetine 20 mg capsule,delayed 20 mg PO QAM 03/25/24 03/25/24 History release furosemide 20 mg tablet 20 mg PO UD PRN Edema 03/25/24 03/25/24 History gabapentin 800 mg tablet 800 mg PO QID 03/25/24 03/25/24 History ibuprofen 200 mg capsule 400 mg PO Q6H PRN Pain 03/25/24 03/25/24 History lactase 3,000 unit tablet (Lactaid) 3,000 unit PO AC PRN Lactose 03/25/24 03/25/24 History Intolerance mometasone 220 mcg/actuation(120 2 inh inhalation BID 03/25/24 03/25/24 History doses)breath activated powder inhaler (Asmanex Twisthaler) oxycodone-acetaminophen 7.5 mg-325 1 tab PO QID PRN Pain 03/25/24 03/25/24 History mg tablet potassium 99 mg tablet 198 mg PO HS 03/25/24 03/25/24 History tiotropium 2.5 mcg-olodaterol 2.5 2 puff inhalation QAM 03/25/24 03/25/24 History mcg/actuation mist for inhalation (Stiolto Respimat) tirzepatide (weight loss) 5 mg/0.5 mg subcut WK 03/30/24 History mL subcutaneous solution (Zepbound) Past Med/Surg History Problem List (Updated 04/06/24 @ 19:40 by Prabhjot Jacobsen MD) Tibial plateau fracture, left Osteoarthritis of left knee Chronic pain Aortic stenosis Bicuspid AV- follows with [facility] Bipolar disorder On home oxygen therapy 4l [place] Sleep apnea cpap Rheumatoid arthritis Follows with rheum- Dr Nia Bruno Encounter for pre-operative examination Chronic obstructive pulmonary disease At baseline Hypertension Medical History Post-nasal drip chronic non-productive cough per patient-stable, denies change or worsening Immune deficiency disorder Gets IVIG infusions- next infusion scheduled 04/01/24 (follows with Dr. Guerrero, Infectious Disease) Aortic stenosis Bicuspid AV- follows with [facility] Bipolar disorder Chronic pain Bursitis left forearm, received recent cortisone injection, "still has some swelling" Hypertension controlled, stable per pt Rheumatoid arthritis f/u [facility] Sleep apnea CPAP on supplemental oxygen On home oxygen therapy 4L O2, continous COPD (chronic obstructive pulmonary disease) with emphysema f/u [facility]>clearance appt 03/28/24 for sx. Degenerative disc disease Kidney disease follows nephrology in [place]>"no longer stage 2, has gotten better, and only has to see nephrology once per year now" Hypoglycemia No diabetes or prediabetes per patient Anxiety and depression History of COVID-19 (~2021) 03/2021>hospitalized for 2 weeks at [place] *result of needing oxygen 15/09 SOB (shortness of breath) on exertion chronic, with activity, denies change or worsening History of attempted suicide no current problems>follows with mental telehealth>([facility]; [facility]) Asthma controlled, stable per pt; uses albuterol inhaler twice daily Surgical History Hx of cardiac cath 2019, [facility], no stents; f/u [facility], [facility] History of total right knee replacement History of surgery on wrist , bilat / to suicide attempt History of dilatation and curettage History of back surgery anterior and posterior lumbar laminectomy and fusion (2 surgeries), 2019 and 2020 "needs back sx from bra line to pelvis per , but will not do the surgery due to her being on oxygen" History of bunionectomy rt/left History of tooth extraction [place] teeth removed History of colonoscopy Hx of sinus surgery X 4 History of repair of ACL rt History of section X2 Hx of chest tube placement - spontaneous pneumothorax, no issues since Family History Father Family history of diabetes mellitus Other No family history of adverse response to anesthesia Social History Smoking Status: Former smoker Tobacco Type: Cigarettes Smoking End Date: quit age 61; Second Hand Exposure: No; Do You Dip or Chew Tobacco: No; Tobacco Cessation Education Requested by Patient: No Hx Alcohol Use: Yes (none for years) Alcohol type: hard liquor Hx Substance Use: No Preferred Language: Urdu Communication Ability: Effective Visual Impairment: No Limitations 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 Beliefs That Will Affect Care: None Current Living Situation: Alone Other Information That Helps Us Care for You: No Feels Safe at Home: Yes Safety Concerns: Feels Safe At This Time Assistive Devices: Contacts, CPAP and Oxygen - Continuous Review of Systems All systems reviewed & are unremarkable except as noted in HPI & below Physical Exam Constitutional: WD/WN, vitals as above Respiratory: normal respiratory effort; no respiratory distress Cardiovascular: Rate/Rhythm: regular rate and regular rhythm Heart Sounds: + murmur Musculoskeletal: Antalgic gait limp left side varus thrust full weightbearing with walker with significant varus alignment knee instability medial joint line pain 10 through 105 degrees range of motion. Lower extremity edema no erythema. Right total knee incision and stable well-functioning right knee replacement. Circulation sensorimotor exam otherwise intact. Skin: no rashes, warm and dry Neurologic: normal touch/pain/proprioception Psychiatric: A+Ox3, euthymic affect Results & Data Diagnostic Findings CT scan and x-rays demonstrate posterior medial comminuted tibial plateau fracture likely related to stress insufficiency fracture with severe end-stage osteoarthritis of the knee [id number] medial compartment with varus alignment.
[~2024-04-08 07:55] MED LIST: BUPIVACAINE 0.25% PF 30 ML VIAL ONE; BUPIVACAINE 0.5 % 5 MG/1 ML PF 10ML VIAL ONE; DEXAMETHASONE SOD INJ 4 MG/ML VIAL ONE; EPINEPHrine INJ 1 MG/ML AMP ONE
[2024-04-08] MEDS ORDERED: MIDAZOLAM HCL 1 MG/ML 2ML VIAL ONE (08:52)
[2024-04-08] MEDS ORDERED: fentaNYL citrate PF 100 MCG/2 ML VIAL ONE (08:52)
[2024-04-08] MEDS: dexAMETHasone**PF** 10 MG/ML VIAL IV SCH (09:58)
[2024-04-08] MEDS: LR 500ML BOLUS, THEN 15ML/HR IV SCH (09:58)
[2024-04-08] MEDS: FAMOTIDINE 20 MG TAB PO SCH (09:58)
[2024-04-08] MEDS: GABAPENTIN 600 MG DOSE PO SCH (09:59)
[2024-04-08] MEDS: CeleBREX 200 MG CAP PO SCH (09:59)
[2024-04-08] MEDS: LR 60ML/HR IV SCH (09:59)
[2024-04-08] MEDS: ACETAMINOPHEN 500 MG TAB PO SCH ×2 (09:59→18:32)
[2024-04-08] MEDS: METOCLOPRAMIDE HCL 10 MG TABLET PO SCH (09:59)
[2024-04-08] MEDS ORDERED: ATROPINE SULFATE 0.1 MG/ML 10ML SYR IV PRN (10:05)
[2024-04-08] MEDS ORDERED: PROMETHAZINE HCL 6.25 MG in SODIUM CHLORIDE 0.9% 50 ML IV PRN (10:05)
[2024-04-08] MEDS ORDERED: ONDANSETRON INJ 2 MG/ML 2 ML VIAL IV PRN ×2 (10:05→17:10)
[2024-04-08] MEDS ORDERED: ePHEDrine sulfate 50 MG/ML AMP IV PRN (10:05)
--- NOTE | 2024-04-08 10:05 | Anesthesiology Consultation ---
Date of Service April 08, 2024 Assessment & Plan Chart Review Chart Review: Acceptable Risk for Surgery and Patient NOT seen in Pre Admission Testing Consults Requested none ASA ASA3 Proposed Anesthesia Anesthesia Type: MAC Spinal Regional Regional Laterality: Left Site: Adductor Canal Risk / Benefits Reviewed With: PT / POA / Parent / Guardian, Accepts Plan and Informed Consent Obtained History Surgery Operation Date: 04/08/24 10:20 Proposed Procedures p Left Total Knee Arthroplasty - Prabhjot Jacobsen MD Height/Weight Height: 5 ft 1 in Weight: 118.3 kg Allergies Allergy/AdvReac Type Severity Reaction Status Date / Time levofloxacin [From Levaquin] Allergy Intermediate Rash Verified 04/08/24 09:26 clarithromycin [From Biaxin] AdvReac Mild Gastrointestinal Verified 04/08/24 09:26 Upset lamotrigine [From Lamictal] AdvReac Mild TREMORS Verified 04/08/24 09:26 perphenazine AdvReac Mild TREMORS Verified 04/08/24 09:26 erythromycin base AdvReac unable to Verified 04/08/24 09:26 urinate Medications Home Medications Medication Instructions Recorded Confirmed Last Taken montelukast 10 mg tablet 10 mg PO QAM 10/28/17 04/08/24 04/08/24 05:00 (Singulair) albuterol sulfate 90 mcg/actuation 1 inh inhalation QID PRN sob 08/19/22 04/08/24 04/08/24 06:00 aerosol inhaler aripiprazole 5 mg tablet (Abilify) 5 mg PO QAM 08/19/22 04/08/24 04/08/24 05:00 calcium 600 mg (as 2 tab PO 08/19/22 04/08/24 04/08/24 05:00 carbonate)-vitamin D3 5 mcg (200 unit) tablet cholecalciferol (vitamin D3) 50 50 mcg PO HS 08/19/22 04/08/24 04/08/24 05:00 mcg (2,000 unit) tablet (Vitamin D3) folic acid 1 mg tablet 5 mg PO QAM 08/19/22 04/08/24 04/07/24 08:00 immune glob,gamm(IgG) 10 %-pro-IgA 1 g IV Q30D 08/19/22 04/08/24 03/25/24 0 to 50 mcg/mL intravenous solution (Privigen) irbesartan 300 mg tablet 300 mg PO QAM 08/19/22 04/08/24 04/07/24 08:00 levocetirizine 5 mg tablet 5 mg PO HS 08/19/22 04/08/24 04/06/24 20:00 magnesium 250 mg tablet 500 mg PO HS 08/19/22 04/08/24 04/06/24 20:00 metoprolol succinate 50 mg 100 mg PO QAM 08/19/22 04/08/24 04/08/24 05:00 tablet,extended release 24 hr (Toprol XL) [id number]-[id number] 8 mg-folic 400 1 tab PO QAM 08/19/22 04/08/24 04/07/24 08:00 mcg-K 50 mcg-lutein 300 mcg tablet (Multivitamin Women 50 Plus) sulfasalazine 500 mg tablet 1,000 mg PO BID 08/19/22 04/08/24 04/06/24 (Azulfidine) zinc 50 mg capsule 50 mg PO HS 08/19/22 04/08/24 04/06/24 20:00 hydrochlorothiazide 25 mg tablet 25 mg PO QAM 09/05/22 04/08/24 04/07/24 08:00 naloxone 4 mg/actuation nasal 1 spray intranasal Q3M PRN opioid 09/10/22 03/25/24 Unknown spray (Narcan) overdose #2 ea Evenity 1 dose INJ Q30D 03/25/24 03/25/24 Unknown bisacodyl 5 mg tablet 25 mg PO HS 03/25/24 04/08/24 04/07/24 18:00 duloxetine 20 mg capsule,delayed 20 mg PO QAM 03/25/24 04/08/24 04/08/24 05:00 release furosemide 20 mg tablet 20 mg PO UD PRN Edema 03/25/24 04/08/24 04/04/24 gabapentin 800 mg tablet 800 mg PO QID 03/25/24 04/08/24 04/08/24 05:00 ibuprofen 200 mg capsule 400 mg PO Q6H PRN Pain 03/25/24 04/08/24 04/01/24 lactase 3,000 unit tablet (Lactaid) 3,000 unit PO AC PRN Lactose 03/25/24 04/08/24 04/06/24 Intolerance mometasone 220 mcg/actuation(120 2 inh inhalation BID 03/25/24 04/08/24 04/08/24 05:00 doses)breath activated powder inhaler (Asmanex Twisthaler) oxycodone-acetaminophen 7.5 mg-325 1 tab PO QID PRN Pain 03/25/24 04/08/24 04/08/24 05:00 mg tablet (Percocet) potassium 99 mg tablet 198 mg PO HS 03/25/24 04/08/24 04/07/24 tiotropium 2.5 mcg-olodaterol 2.5 2 puff inhalation QAM 03/25/24 04/08/24 04/08/24 05:00 mcg/actuation mist for inhalation (Stiolto Respimat) tirzepatide (weight loss) 5 mg/0.5 mg subcut WK 03/30/24 03/25/24 mL subcutaneous solution (Zepbound) Active Medications Generic Name Dose Route Start Last Admin Trade Name Freq PRN Reason Stop Dose Admin Acetaminophen 1,000 mg 04/08/24 06:00 04/08/24 09:59 Acetaminophen 500 Mg Tab PO 04/08/24 18:00 1,000 mg PREOP CECI Administration Celecoxib 200 mg 04/08/24 06:00 04/08/24 09:59 Celebrex 200 Mg Cap PO 04/08/24 18:00 200 mg PREOP CECI Administration Dexamethasone Sodium Phosphate 10 mg 04/08/24 06:00 04/08/24 09:58 DexamethasonePf 10 Mg/Ml Vial IV 04/08/24 18:00 10 mg PREOP CECI Administration Famotidine 20 mg 04/08/24 06:00 04/08/24 09:58 Famotidine 20 Mg Tab PO 04/08/24 18:00 20 mg PREOP CECI Administration Gabapentin 600 mg 04/08/24 06:00 04/08/24 09:59 Gabapentin 600 Mg Dose PO 04/08/24 18:00 600 mg PREOP CECI Administration Lactated Ringer's 1,000 mls @ 60 mls/hr 04/08/24 06:00 04/08/24 09:59 Lr IV 04/08/24 22:39 Not Given .[id number] CECI Lactated Ringer's 1,000 mls @ 15 mls/hr 04/08/24 06:00 04/08/24 09:58 Lr IV 04/08/24 18:00 15 mls/hr .Q24H CECI Administration Metoclopramide HCl 10 mg 04/08/24 06:00 04/08/24 09:59 Metoclopramide Hcl 10 Mg Tablet PO 04/08/24 18:00 10 mg PREOP CECI Administration NPO Date Last Intake of Fluids: 04/07/24 Time Last Intake of Fluids: 22:00 Date Last Intake of Solids: 04/07/24 Time Last Intake of Solids: 22:00 Past Medical History Medical History Pulmonary hypertension Post-nasal drip chronic non-productive cough per patient-stable, denies change or worsening Immune deficiency disorder Gets IVIG infusions- next infusion scheduled 04/01/24 (follows with Dr. Guerrero, Infectious Disease) Aortic stenosis Bicuspid AV- follows with [facility] Bipolar disorder Chronic pain Bursitis left forearm, received recent cortisone injection, "still has some swelling" Hypertension controlled, stable per pt Rheumatoid arthritis f/u [facility] Sleep apnea CPAP on supplemental oxygen On home oxygen therapy 4L O2, continous COPD (chronic obstructive pulmonary disease) with emphysema f/u [facility] pulm>clearance appt 03/28/24 for sx. Degenerative disc disease Kidney disease follows nephrology in [place]>"no longer stage 2, has gotten better, and only has to see nephrology once per year now" Hypoglycemia No diabetes or prediabetes per patient Anxiety and depression History of COVID-19 (~2021) 03/2021>hospitalized for 2 weeks at [place] *result of needing oxygen 15/09 SOB (shortness of breath) on exertion chronic, with activity, denies change or worsening History of attempted suicide no current problems>follows with mental telehealth>([facility]; [place]) Asthma controlled, stable per pt; uses albuterol inhaler twice daily Exercise / Class Metabolic Activity II 4-5 Yardwork/Stairs/Walk up hill Past Family History Family History Father Family history of diabetes mellitus Other No family history of adverse response to anesthesia Past Surgical History Surgical History Hx of cardiac cath 2019, ph [facility], no stents; f/u [facility], ph [facility] History of total right knee replacement History of surgery on wrist , bilat 2/2 to suicide attempt History of dilatation and curettage History of back surgery anterior and posterior lumbar laminectomy and fusion (2 surgeries), 2019 and 2020 "needs back sx from bra line to pelvis per dr, but will not do the surgery due to her being on oxygen" History of bunionectomy rt/left History of tooth extraction [place] teeth removed History of colonoscopy Hx of sinus surgery X 4 History of repair of ACL rt History of section X2 Hx of chest tube placement - spontaneous pneumothorax, no issues since Past Anesthesia History No Hx of Anesthesia Complications and No Family Hx of Anesthesia Complications History of PONV No Hx of PONV and No Hx of Motion Sickness Social History Smoking Status: Former smoker tobacco type: cigarettes Do You Dip or Chew Tobacco: No Smoking End Date: quit age 61 Hx Alcohol Use: Yes (none for years) Alcohol type: hard liquor alcohol intake frequency: holidays/special occasions only Hx Substance Use: No substance use type: does not use Physical Exam Vital Signs Last Vital Signs Temp 36.8 C 04/08/24 09:35 Pulse 67 04/08/24 09:35 Resp 24 04/08/24 09:35 BP 146/72 H 04/08/24 09:35 Pulse Ox 98 04/08/24 09:35 O2 Del Method Nasal Cannula 04/08/24 09:35 O2 Flow Rate 4 04/08/24 09:35 Constitutional + obese ENMT Mouth: no dentition abnormality Thyromental Distance: > or= 3.5 Finger Breadths Mallampati Class: II Neck normal visual inspection Respiratory normal respiratory effort Auscultation: lungs clear to auscultation bilaterally Cardiovascular Rate/Rhythm: regular rate and regular rhythm Psychiatric Orientation: alert Testing Electrocardiogram Date: 03/30/24 NSR, rate 64 bpm Echocardiogram Date: 08/29/21 EF 60-65% No obvious RWMA Mild to moderate , aortic valve not well seen, MG 23 mmHg, DVI ~0.5 Grade I diastolic dysfunction Cardiac Catheterization Date: 02/15/20 Right heart cath Increased pulmonary vascular resistance could suggest some degree of pulmonary hypertension however do not fulfill diagnostic criteria for pulmonary hypertension Cervical Spine Date: 03/30/24 FINDINGS: There is severe degenerative disc disease at the lower cervical spine. There is progressive grade 1 anterolisthesis of C4 on 5. There is minimal grade 1 anterolisthesis of C3 on 4. The anterolisthesis of C3 on C4 and C4 on 5 reduces with extension. No fracture seen. IMPRESSION: Translational motion at C3-4 and C4-5.
--- NOTE | 2024-04-08 10:26 | History & Physical Bridge Note ---
Date of Service April 08, 2024 History & Physical Bridge Note I have examined the patient, reviewed the History & Physical and in the interval since the performance of the History & Physical I have noted the following changes of clinical significance: no changes noted
[2024-04-08] MEDS ORDERED: KETAMINE HCL 10MG/ML SYR ONE (10:34)
[2024-04-08] MEDS: TRANEXAMIC ACID 1,000 MG **IV Pre-op IV SCH (10:45)
[2024-04-08] MEDS ORDERED: PROPOFOL IV EMULSION 10 MG/ML 100 ML VIAL IV ONE ×2 (11:02→13:25)
[2024-04-08] MEDS: ceFAZolin 2000MG 2,000 MG/15 ML SYR IV SCH ×2 (11:41→18:32)
[2024-04-08] MEDS ORDERED: PHENYLEPHRINE 100MCG/ML 5ML SYR ONE (11:57)
[2024-04-08] MEDS ORDERED: ePHEDrine sulfate 50 MG/5 ML SYR ONE (11:57)
[2024-04-08] MEDS ORDERED: ONDANSETRON INJ 2 MG/ML 2 ML VIAL ONE ×2 (12:13→15:02)
[2024-04-08] MEDS: ORTHO JOINT ANESTHETIC ONE (12:27)
[2024-04-08] MEDS: TRANEXAMIC ACID 1,000 MG **IV Intra-op IV SCH (14:55)
[2024-04-08] MEDS ORDERED: SODIUM CHLORIDE 0.9% PF INJ 10 ML VIAL ONE (14:59)
[2024-04-08] MEDS ORDERED: HYDROmorphone INJ 2 MG/ML SYR/VIAL ONE (14:59)
[2024-04-08] MEDS: ROPIVACAINE 0.5% HCL/PF 246 MG, Ketorolac (*for OR use only*) 30 MG in SODIUM CHLORIDE ... INFIL SCH (15:00)
--- NOTE | 2024-04-08 15:39 | Post Operative Brief Note ---
Immediate Post Op Note Date of Surgery April 08, 2024 Pre & Post Diagnosis Operation Date: 04/08/24 10:20 Pre-Op Diagnosis: Left Tibial plateau fracture; Osteoarthritis of left knee; Rheumatoid arthritis Post-Op Diagnosis: Left Tibial plateau fracture; Osteoarthritis of left knee; Rheumatoid arthritis I identified the patient and participated in the time-out.: Yes Procedure Operation Date: 04/08/24 10:20 Actual Procedures p Difficult Primary Left Total Knee Arthroplasty with Revision Tibial Component with Medial Augment(Left) - Prabhjot Jacobsen MD Surgeon Prabhjot Jacobsen MD Home Care Administrator Davie PACHECO Estimated Blood Loss 50 Findings Consistent with Post-Op Diagnosis Specimens Bone cuts Drains Hemovac Drain Anesthesia Type MAC Spinal Regional Complications none Disposition Disposition: Recovery Room Overlapping Procedure I was immediately available: during the entire case.
[2024-04-08] MEDS: fentaNYL citrate PF 100 MCG/2 ML VIAL IV PRN (15:52)
--- NOTE | 2024-04-08 16:03 | Operative Report ---
Post Operative Report Pre & Post Diagnosis Operation Date: 04/08/24 10:20 Pre-Op Diagnosis: Left Tibial plateau fracture; Osteoarthritis of left knee; Rheumatoid arthritis, morbid obesity BMI 49.3 Post-Op Diagnosis: Left Tibial plateau fracture; Osteoarthritis of left knee; Rheumatoid arthritis, morbid obesity BMI 49.3 I identified the patient and participated in the time-out.: Yes Procedure Operation Date: 04/08/24 10:20 Actual Procedures p Difficult Primary Left Total Knee Arthroplasty with Revision Tibial Component with Medial Augment(Left), bre and Acticoat superficial wound VAC application, increased difficulty morbid obesity BMI 49.3- Prabhjot Jacobsen MD Surgeon Prabhjot Jacobsen MD Rn Emergency Davie PACHECO Estimated Blood Loss 50 Findings Consistent with Post-Op Diagnosis Specimens Bone cuts Drains 2 Hemovac Anesthesia Type MAC Spinal Regional Complications none Disposition Disposition: Recovery Room Indications 63-year-old female with severe end-stage osteoarthritis of her left knee who was being treated conservatively due to her BMI however she likely developed an insufficiency fracture on the medial tibia and now has a comminuted medial proximal tibia fracture with marked varus alignment and instability of the knee. This fracture is on top of grade 4 medial compartment osteoarthritis Description of Procedure Patient taken to the operating room the size under spinal MAC regional block anesthesia. Patient was placed supine on the operating table. A pneumatic tourniquet was placed about the obese left upper thigh. The left lower extremity was prepped and draped in sterile fashion. Knee exam demonstrated varus knee with varus instability due to collapse of the medial tibial plateau 0 through 95 degrees range of motion. Obese upper thigh obese knee. The leg was elevated exsanguinated with an Esmarch bandage and pneumatic tourniquet was raised to 350 millimeters of mercury. Skin incised sharply in longitudinal fashion. A thickened scarred prepatellar bursa was entered with chronic prepatellar bursitis with a fair amount of fluid that was evacuated from that area. The scarred bursal tissue was resected. Subcutaneous flaps were then elevated. Incision was made through the medial retinaculum extending up in the mid third of the quadriceps tendon and down to the medial tibial tubercle. Intra-articular findings demonstrated tricompartmental osteoarthritis grade 4 patellofemoral osteoarthritis grade 4 medial compartment osteoarthritis with a comminuted mid to posterior medial tibial plateau fracture. There was also significant synovitis throughout the knee some scarred synovial tissue which had to be debrided and resected.. The [employer] total knee arthroplasty system was used with revision tibial component and medial augment. To expose the knee the infrapatellar fat pad was resected. The menisci and cruciate ligaments were resected. The anterior fat pad over the femur in the area of the location of the anterior flange of the femoral component was resected. The lateral synovial bands were released. The femur was exposed. An intramedullary drill hole was made into the canal. A guide kathrine was placed. Distal femoral cutting guide was adjusted to resect a 5 degree valgus cut with a standard distal femur resection. The knee was extended and a subperiosteal peel lateral release was performed around the patella. Patella width was measured and width was reproduced using a freehand cut technique and a 32 symmetrical patella component. The 3 drill holes were made and the excess lateral facet was beveled off to prevent any impingement. Attention was taken back to the femur which was exposed with retractors and the femoral sizing guide was pinned in position. This was adjusted in order not to notch anteriorly and was sized for a size 3. The drill holes were placed in 3 of external rotation to match the epicondylar axis. The 4-in-1 cutting block was placed and then the anterior posterior and chamfer cuts are made. The tibia was then subluxed. The comminuted fragments of the medial tibial plateau were resected them from the MCL which was preserved. There were multiple pieces. This involve the mid to posterior tibial plateau. The intramedullary drill was used followed by reamer up to a size 10 which had cortical chatter. I chose used 120 mm stem. The guide was placed in the cut for the augment medially to achieve good bony contact below the level of the fracture as well as the primary cut which was ar ound 10 to 11 mm off the articular surface on the lateral side. A lamina cloth spreader screen printing was used and the flexion extension gaps were balanced. No releases were required. All posterior osteophytes removed. All meniscal remnants were resected. The tibia exposed and the intramedullary kathrine for the offset reamers was placed.. That the size 2 tibia was appropriate with a 4 mm offset at the 10 o'clock position. This was pinned in position and then the proximal reamers were utilized as well as the punch for the fins of the component. Cut was adjusted appropriately for a 10 mm augment medially. The trial was assembled and impacted into position with a good fit. The femoral trial was inserted centered in the notch cuts were made. The collet was placed and a size 9 trial posterior stabilized HyFlex tibial tibial trial insert placed and gave balanced ligaments through flexion and extension. Patella tracking was assessed. The patella tracked. At this point the tourniquet time was 116 minutes I chose to put the tourniquet down for 15 to 20 minutes and we obtained hemostasis and there was not any major bleeders identified but we did perform appropriate hemostasis. The tourniquet was placed back up again after reexsanguination. The trial components were then removed and the orthomix anesthetic cocktail was injected per protocol. The knee was then copiously irrigated with pulsatile l avage saline solution. Final components were then cemented with Refobacin cement with gentamicin. Final components were 3 left posterior stabilized Legion femoral component, 2 left tibia component with a 10 mm medial augment with a 10 x 120 mm stem with a 4 mm offset at the 10 o'clock position. A 32 all polyethylene symmetrical patella component. A size 9 tibial posterior stabilized HyFlex polyethylene. After the cement cured the knee was further pulsatile lavage irrigation and 2 Hemovac drains were brought out laterally. The quadriceps tendon and medial retinaculum were closed with #2 FiberWire [id number] sutures along the medial retinaculum medial side of the patella and distal quadriceps tendon and an additional vlgyzt-[id number] suture at the apex of the quadriceps tendon split proximally and an additional [id number]-vi-[id number] suture at the level of the tibial polyethylene in the patella tendon. a 0 running locking STRATAFIX suture was placed starting at the proximal split in the quadriceps tendon extending down to the inferior pole the patella and then below that level [id number] #1 Vicryl sutures were utilized to repair the medial retinaculum to the patella tendon. The knee was taken through full range of motion and the repair was secure. Knee range of motion was 0 through 120 degrees with complete stability through full range of motion. The subcutaneous tissues were closed with 2-0 Vicryl sutures. Skin was closed with surgical cherry. A bre and Acticoat superficial wound VAC was applied. There was an increased level of difficulty adding 40 minutes of time to the procedure due to her obesity. The patient tolerated the procedure well. Davie PACHECO was my physician assistant professor of dietetics who participated as clinical nursing assistant and was involved in all aspects of the procedure including patient positioning prepping and draping,leg positioning ,soft tissue retraction and instrument management and participated in the closing and application of the wound VAC and will participate in postoperative care of the patient. The patient tolerated the procedure well. I attest to the content of the Intraoperative Record and any orders documented therein. Any exceptions are noted below.
--- NOTE | 2024-04-08 16:11 | XRay Report ---
Study: Left knee 2 views History: Effusion Comparison: None Findings/impression: Postoperative changes of total left knee arthroplasty, which appears intact. No fracture. The hardware appears well-seated. Postoperative fluid and air seen in the soft tissues. Vertical staple line overlying the skin. A drainage catheter resides within the soft tissues about the lateral knee joint. Electronically signed by Marko Juarez 04-08-2024 4:11 PM
--- NOTE | 2024-04-08 16:42 | Anesthesiology Progress Note ---
Date of Service April 08, 2024 Anesthesia Post Procedure Vital Signs Vital Signs: Temp Pulse Resp BP Pulse Ox O2 Del Method O2 Flow Rate 04/08/24 16:35 95 H 15 168/81 H 95 Nasal Cannula 4 04/08/24 16:25 89 13 156/80 H 95 Nasal Cannula 4 04/08/24 16:15 92 H 19 136/79 96 Nasal Cannula 4 04/08/24 16:05 92 H 20 141/86 H 97 Oxymask 4 04/08/24 15:55 82 15 125/82 97 Oxymask 8 04/08/24 15:47 36.0 C L 82 18 117/87 97 Oxymask 8 04/08/24 09:35 Nasal Cannula 4 04/08/24 09:35 36.8 C 67 24 146/72 H 98 Nasal Cannula 4 Pain Intensity Left Knee: Pain Intensity: 6 Notes Mental Status: alert / awake / arousable Patient Amnestic to Procedure: Yes Nausea / Vomiting: adequately controlled Pain: adequately controlled Airway Patency, RR, SpO2: stable & adequate BP & HR: stable & adequate Hydration State: stable & adequate Neuraxial Anesthesia: was administered and sensory block is resolving Anesthetic Complications: no major complications apparent
[2024-04-08] MEDS ORDERED: ALBUTEROL HFA 8 GM INHALER INH PRN (17:10)
[2024-04-08] MEDS ORDERED: diphenhydrAMINE Capsule 25 MG CAP PO PRN (17:10)
[2024-04-08] MEDS ORDERED: NALOXONE HCL 0.4 MG/1 ML VIAL/CARP IV PRN (17:10)
[2024-04-08] MEDS ORDERED: bisacodyL 10 MG SUPP PR PRN (17:10)
[2024-04-08] MEDS ORDERED: [UNRECOGNIZED DRUG - OTHER] IV SCH (17:10)
[2024-04-08] MEDS ORDERED: LACTASE 3000 UNIT TAB PO PRN (17:10)
[2024-04-08] MEDS ORDERED: METOCLOPRAMIDE HCL INJ 5 MG/ML 2 ML VIAL IV PRN (17:10)
[2024-04-08] MEDS ORDERED: ALUMINUM/MAGNESIUM SUSP 30 ML UDC PO PRN (17:10)
[2024-04-08] MEDS: HYDROmorphone INJ 0.5 MG/0.5 ML SYR IV PRN (18:27)
[2024-04-08] MEDS: GABAPENTIN 800 MG TAB PO SCH (18:34)
[2024-04-08] MEDS: CHOLECALCIFEROL 25 MCG (1000 UNITS) TAB PO SCH (20:36)
[2024-04-08] MEDS: CALCIUM 600MG + VIT D 400 IU TAB PO SCH (20:36)
[2024-04-08] MEDS: APIXABAN 2.5 MG TAB PO SCH (20:37)
[2024-04-08] MEDS: CETIRIZINE HCL 10 MG TABLET PO SCH (20:37)
[2024-04-08] MEDS: DOCUSATE SODIUM 100 MG CAP PO SCH (20:39)
[2024-04-08] MEDS: bisacodyL 5 MG TABEC PO SCH (20:39)
[2024-04-08] MEDS: SENNA 8.6 MG TAB PO SCH (20:39)
[2024-04-08] MEDS: FLUTICASONE FUROATE 100MCG 14 PUFFS/INHALER INH SCH (20:40)
[2024-04-08] MEDS: sulfaSALAzine 500 MG TABLET PO SCH (20:42)
[2024-04-08] MEDS ORDERED: NON-FORMULARY MEDICATION (Potassium 99 mg Tablet) PO SCH (21:00)
[2024-04-08] MEDS ORDERED: ASPIRIN 81 MG ECTAB PO SCH (21:00)
[2024-04-08] MEDS ORDERED: NON-FORMULARY MEDICATION (Magnesium 250 mg Tablet) PO SCH (21:00)
[2024-04-08] MEDS ORDERED: NON-FORMULARY MEDICATION (Zinc 50 mg Capsule) PO SCH (21:00)
[2024-04-08] MEDS: TRANEXAMIC ACID / 0.7% NACL 1,000 MG/100 ML BAG IV SCH (22:04)
[2024-04-08] MEDS: EVENITY INJ SCH (22:17)
[2024-04-08] MEDS: oxyCODONE HCL IR 5 MG TAB (IMMEDIATE RELEASE) PO PRN (23:36)
[2024-04-09] MEDS: KETOROLAC TROMETHAMINE 15 MG/ML VIAL IV PRN (00:48)
[2024-04-09 06:32] LABS: Hematocrit (blood only) 29.5 % (37.0-47.0); Hemoglobin 9.7 g/dl (12.0-16.0); Mean Corpuscular Hemoglobin 30.9 pg (25.0-34.0); Mean Corpuscular Hgb Conc 32.9 g/dL (32.0-36.0); Mean Corpuscular Volume 93.9 fL (80.0-100.0); Mean Platelet Volume 9.5 fL (9.4-12.4); Platelet Count 223 K/uL (130-400); RDW Coefficient of Variation 13.2 % (11.5-14.5); RDW Standard Deviation 45.1 fL (36.4-46.3); Red Blood Count 3.14 M/uL (4.20-5.40); White Blood Count 10.45 K/ul (4.8-10.8)
[2024-04-09 06:53] LABS: BUN Creatinine Ratio 21.1 (10-20); Calcium 8.8 mg/dl (8.6-10.3); Creatinine Clr Calc Pharmacy 64.2 ml/min; Potassium 4.3 mmol/L (3.5-5.1)
--- NOTE | 2024-04-09 08:39 | Orthopedic Progress Note ---
Date of Service April 09, 2024 Assessment & Plan (1) Tibial plateau fracture, left: Plan: POD #[address] Jacobsen on 04/08/24 -Patient is doing well, vital signs have remained stable and pain is controlled -Continue current pain control -WBAT, PT/OT -DVT ppx: Eliquis, TEDs/SCDs -Hemovac drain total output: 230mL, will remove before discharge -Planning for discharge home with home health, likely tomorrow due to weather today Followup in the office with Dr. Jacobsen in 2 weeks (2) Osteoarthritis of left knee: Admission and Anticipated Discharge Date Admission Date: April 08, 2024 Subjective Patient did well overnight s/p POD#[address] Jacobsen. Vital signs have remained stable and she is on her baseline oxygen requirement 4L NC. Pain has been controlled on current regimen. No other acute complaints this morning. Physical Exam Physical Exam: Resting in bed, no acute distress Musculoskeletal: LLE: Dressing clean, dry and intact. Compartments compressible. Calves soft and non-tender. Able to lift leg off of the bed. Plantar/dorsiflexion intact. DP pulse intct, NVI Results & Data Vital Signs (Past 12 Hours) Vital Signs Temp Pulse Resp BP Pulse Ox O2 Del Method O2 Flow Rate 04/09/24 07:19 36.5 C 76 18 134/72 97 Nasal Cannula 4 04/09/24 02:06 36.5 C 72 18 146/86 H 99 CPAP 4 04/08/24 22:44 37.0 C 73 16 120/75 95 Nasal Cannula 4 04/08/24 21:25 Nasal Cannula 4 Laboratory Results Laboratory Tests 04/09/24 05:44 WBC 10.45 RBC 3.14 L Hgb 9.7 L Hct 29.5 L Sodium 135 L Potassium 4.3 Chloride 97 L BUN 23 Creatinine 1.09 BUN/Creatinine Ratio 21.1 H Glucose 173 H Calcium 8.8 (1) Tibial plateau fracture, left Encounter type: initial encounter Fracture type: closed Qualified Code(s): S82.142A - Displaced bicondylar fracture of left tibia, initial encounter for closed fracture (2) Osteoarthritis of left knee Osteoarthritis type: primary Qualified Code(s): M17.12 - Unilateral primary osteoarthritis, left knee
[2024-04-09] MEDS: ARIPiprazole 5 MG TAB PO SCH (08:44)
[2024-04-09] MEDS: dexAMETHasone 10 MG in SYRINGE 0 ML IV SCH (08:44)
[2024-04-09] MEDS: FOLIC ACID 1 MG TAB PO SCH (08:48)
[2024-04-09] MEDS: LOSARTAN POTASSIUM 50 MG TAB PO SCH (08:51)
[2024-04-09] MEDS: hydroCHLOROthiazide 25 MG TAB PO SCH (08:51)
[2024-04-09] MEDS: MULTIVITAMIN TAB PO SCH (08:52)
[2024-04-09] MEDS: MONTELUKAST SODIUM 10 MG TABLET PO SCH (08:52)
[2024-04-09] MEDS: METOPROLOL SUCC 50MG EXT REL TAB PO SCH (08:52)
[2024-04-09] MEDS: UMECLIDINIUM/VILANTEROL 62.5/25MCG 7 PUFFS/INHALER INH SCH (08:54)
[2024-04-09] MEDS ORDERED: [UNRECOGNIZED DRUG - OTHER] PO SCH (09:00)
[2024-04-09] MEDS: DULoxetine HCL 20 MG CAP PO SCH (09:28)
--- NOTE | 2024-04-09 11:22 | Hospitalist Consultation ---
Date of Consultation April 09, 2024 Assessment & Plan (1) Osteoarthritis of left knee: (2) Acute blood loss anemia: (3) Chronic obstructive pulmonary disease: (4) Sleep apnea: (5) On home oxygen therapy: Plan Florencia is a 63F with a PMHx of bicuspid aortic valve, sleep apnea on CPAP, COPD with chronic oxygen therapy (4L), obesity, HLD, HTN, RA, bipolar disorder who presents the hospital for elective knee surgery with Dr. Jacobsen. Hospitalist were consulted for medical management. S/P knee surgery | Acute Blood Loss Anemia Left TKA with Dr. Jacobsen 04/08 DVT proph, pain control, abx and discharge planning per primary team. -would NOT recommend Celebrex while taking Eliquis, increased risk for GI bleed EBL 50, drain in place. Hgb drop to 9.7, was 12.2 prior. This is similar to her prior post-op values. VSS. Continue to monitor drain output. COPD on chronic oxygen therapy | MAGNOLIA At her baseline, 4L continue inhalers Continue CPAP Chronic low back pain Follows with pain management, on gabapentin 800mg QID CrCl 64 - max dose should be 1800mg daily in 3 divided doses, discussed with patient and she does not want to decrease her dose, state will talk to pain management HTN - continue irbesartan and metoprolol. Okay to continue HCTZ, kidney function okay. Mental Health - continue abilify, duloxetine Obesity - hold Zepbound RA - okay to continue sulfasalazine Dispo: medically stable, trend hgb in AM Supervising Physician Co-Signing Physician Notes PA Supervision Note: I personally saw and examined the patient. I verified all oliveira points and agree with TARA Caraballo with the following exceptions and/or additions: S-Pt having some pain and heaviness in the LLE. Denies SOB, CP. Is requesting to stay until Thursday O- Vitals reviewed Gen: [AAOx3, NAD, obese] HEENT: [anicteric sclerae, EOMI] CV: [RRR 2/6 RAJI at RUSB nl S1S2] Pulm: [CTAB no wcr] Ext: [no edema] Skin: [no rashes, warm/dry] CBC, BMP reviewed A/P-this patient is a 63-year-old female with a history of COPD, chronic hypoxic respiratory failure, RA, obesity, chronic back pain, depression/anxiety, HTN, MAGNOLIA on CPAP, here for left TKA. She is hemodynamically stable despite acute blood loss anemia with hemoglobin down to 9.7 from 12. Stable from cardiovascular and pulmonary standpoint on her baseline O2. Continue current care with plan outlined as above Agree with not adding Celebrex to Eliquis at least for the next 2 weeks while on Eliquis History of Present Illness Reason for Consultation: medical management Requesting Physician: Dr. Jacobsen Attending Physician: Prabhjot Jacobsen MD History of Present Illness Florencia is a 63F with a PMHx of bicuspid aortic valve, sleep apnea on CPAP, COPD with chronic oxygen therapy (4L), obesity, HLD, HTN, RA, bipolar disorder who presents the hospital for elective knee surgery with Dr. Jacobsen. She is seen on post op day #1. She is tolerating PO intake without issues, states pain is relatively well controlled. She has been out of bed, but at baseline reports she does not move well. 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 She knows that PT is recommending rehab and she is not interested and thinks it "would be a waste of time". Does not think she has passed gas postoperatively. On her home oxygen requirements. Discussed taking Eliquis and taking NSAIDs. Patient is very worried about this, stating she takes ibuprofen for her RA. She is wondering if her duration of Eliquis can be decreased, I told her that would be deferred to the primary team. Discussed that her gabapentin dosing is not appropiate for her kidney function. Reports following with pain management and not wanting to decrease dose at this time. Allergies Allergy/AdvReac Type Severity Reaction Status Date / Time levofloxacin [From Levaquin] Allergy Intermediate Rash Verified 04/08/24 09:26 clarithromycin [From Biaxin] AdvReac Mild Gastrointestinal Verified 04/08/24 09:26 Upset lamotrigine [From Lamictal] AdvReac Mild TREMORS Verified 04/08/24 09:26 perphenazine AdvReac Mild TREMORS Verified 04/08/24 09:26 erythromycin base AdvReac unable to Verified 04/08/24 09:26 urinate Home Medications Medication Instructions Recorded Confirmed Type montelukast 10 mg tablet 10 mg PO QAM 10/28/17 04/08/24 History (Singulair) albuterol sulfate 90 mcg/actuation 1 inh inhalation QID PRN sob 08/19/22 04/08/24 History aerosol inhaler aripiprazole 5 mg tablet (Abilify) 5 mg PO QA 08/19/22 04/08/24 History calcium 600 mg (as 2 tab PO HS 08/19/22 04/08/24 History carbonate)-vitamin D3 5 mcg (200 unit) tablet cholecalciferol (vitamin D3) 50 50 mcg PO HS 08/19/22 04/08/24 History mcg (2,000 unit) tablet (Vitamin D3) folic acid 1 mg tablet 5 mg PO QAM 08/19/22 04/08/24 History immune glob,gamm(IgG) 10 %-pro-IgA 1 g IV Q30D 08/19/22 04/08/24 History 0 to 50 mcg/mL intravenous solution (Privigen) irbesartan 300 mg tablet 300 mg PO [facility] 08/19/22 04/08/24 History levocetirizine 5 mg tablet 5 mg PO HS 08/19/22 04/08/24 History magnesium 250 mg tablet 500 mg PO 08/19/22 04/08/24 History metoprolol succinate 50 mg 100 mg PO [facility] 08/19/22 04/08/24 History tablet,extended release 24 hr (Toprol XL) [id number] 8 mg-folic 400 1 tab PO [facility] 08/19/22 04/08/24 History mcg-K 50 mcg-lutein 300 mcg tablet (Multivitamin Women 50 Plus) sulfasalazine 500 mg tablet 1,000 mg PO BID 08/19/22 04/08/24 History (Azulfidine) zinc 50 mg capsule 50 mg PO HS 08/19/22 04/08/24 History hydrochlorothiazide 25 mg tablet 25 mg PO QAM 09/05/22 04/08/24 History naloxone 4 mg/actuation nasal 1 spray intranasal Q3M PRN opioid 09/10/22 03/25/24 Rx spray (Narcan) overdose #2 ea Evenity 1 dose INJ Q30D 03/25/24 03/25/24 History bisacodyl 5 mg tablet 25 mg PO HS 03/25/24 04/08/24 History duloxetine 20 mg capsule,delayed 20 mg PO QAM 03/25/24 04/08/24 History release furosemide 20 mg tablet 20 mg PO UD PRN Edema 03/25/24 04/08/24 History gabapentin 800 mg tablet 800 mg PO QID 03/25/24 04/08/24 History ibuprofen 200 mg capsule 400 mg PO Q6H PRN Pain 03/25/24 04/08/24 History lactase 3,000 unit tablet (Lactaid) 3,000 unit PO AC PRN Lactose 03/25/24 04/08/24 History Intolerance mometasone 220 mcg/actuation(120 2 inh inhalation BID 03/25/24 04/08/24 History doses)breath activated powder inhaler (Asmanex Twisthaler) oxycodone-acetaminophen 7.5 mg-325 1 tab PO QID PRN Pain 03/25/24 04/08/24 History mg tablet (Percocet) potassium 99 mg tablet 198 mg PO HS 03/25/24 04/08/24 History tiotropium 2.5 mcg-olodaterol 2.5 2 puff inhalation QAM 03/25/24 04/08/24 History mcg/actuation mist for inhalation (Stiolto Respimat) tirzepatide (weight loss) 5 mg/0.5 mg subcut WK 03/30/24 History mL subcutaneous solution (Zepbound) acetaminophen 500 mg tablet 1,000 mg (2 x 500 mg) PO Q8H #90 04/08/24 Rx (Tylenol Extra Strength) tabs apixaban 2.5 mg tablet (Eliquis) 2.5 mg PO BID #28 tabs 04/08/24 Rx cefadroxil 500 mg capsule 500 mg PO Q12H #28 caps 04/08/24 Rx celecoxib 200 mg capsule (Celebrex) 200 mg PO Q12H #60 caps 04/08/24 Rx oxycodone 5 mg tablet 5 mg PO Q4H PRN pain #20 tabs 04/08/24 Rx Patient History Medical History (Updated 04/09/24 @ 15:25 by Janet Caraballo PA-C) Pulmonary hypertension Post-nasal drip chronic non-productive cough per patient-stable, denies change or worsening Immune deficiency disorder Gets IVIG infusions- next infusion scheduled 04/01/24 (follows with Dr. Guerrero, Infectious Disease) Aortic stenosis Bicuspid AV- follows with [facility] Bipolar disorder Chronic pain Bursitis left forearm, received recent cortisone injection, "still has some swelling" Hypertension controlled, stable per pt Rheumatoid arthritis f/u [facility] Sleep apnea CPAP on supplemental oxygen On home oxygen therapy 4L O2, continous COPD (chronic obstructive pulmonary disease) with emphysema f/u [facility]>clearance appt 03/28/24 for sx. Degenerative disc disease Kidney disease follows nephrology in [place]>"no longer stage 2, has gotten better, and only has to see nephrology once per year now" Hypoglycemia No diabetes or prediabetes per patient Anxiety and depression History of COVID-19 (~2021) 03/2021>hospitalized for 2 weeks at [facility] *result of needing oxygen 15/09 SOB (shortness of breath) on exertion chronic, with activity, denies change or worsening History of attempted suicide no current problems>follows with mental telehealth>([facility]; [facility]) Asthma controlled, stable per pt; uses albuterol inhaler twice daily Surgical History Hx of cardiac cath 2019, ph [facility], no stents; f/u [facility] History of total right knee replacement History of surgery on wrist , bilat 2/2 to suicide attempt History of dilatation and curettage History of back surgery anterior and posterior lumbar laminectomy and fusion (2 surgeries), 2019 and 2020 "needs back sx from bra line to pelvis per , but will not do the surgery due to her being on oxygen" History of bunionectomy rt/left History of tooth extraction Lenore teeth removed History of colonoscopy Hx of sinus surgery X 4 History of repair of ACL rt History of section X2 Hx of chest tube placement - spontaneous pneumothorax, no issues since Family History Father Family history of diabetes mellitus Other No family history of adverse response to anesthesia Social History Smoking Status: Former smoker Tobacco Type: Cigarettes Smoking End Date: quit age 61; Second Hand Exposure: No; Do You Dip or Chew Tobacco: No; Tobacco Cessation Education Requested by Patient: No Hx Alcohol Use: Yes (none for years) Alcohol type: hard liquor Hx Substance Use: No Preferred Language: Panamanian Communication Ability: Effective Visual Impairment: No Limitations Equip Tech Required: No Beliefs That Will Affect Care: None Current Living Situation: Alone Other Information That Helps Us Care for You: No Feels Safe at Home: Yes Safety Concerns: Feels Safe At This Time Assistive Devices: Contacts, CPAP and Oxygen - Continuous Review of Systems Review of Systems: All systems reviewed & are unremarkable except as noted in Subjective Physical Exam Physical Exam: General: NAD, VS as above, sitting up in bed, eating lunch Resp: normal respiratory effort, lungs clear to auscultation on 4L NC CV: RRR, no murmur, Abd: normal bowel sounds, non tender, soft Extremities: Moves all extremities, able to wiggle toes bilaterally Neuro: A&O x3, Results & Data Results & Data Vital Signs (Past 12 Hours) Vital Signs Temp Pulse Resp BP Pulse Ox O2 Del Method O2 Flow Rate 04/09/24 07:19 97.7 F 76 18 134/72 97 Nasal Cannula 4 04/09/24 02:06 97.7 F 72 18 146/86 H 99 CPAP 4 Laboratory Results cbc and chemistry reviewed PG Care Time/CCT Total # of Minutes Spent Total Time Spent with Patient: Total time spent is greater than 50% in coordination of care (as documented) at patient's floor/unit and/or counseling patient: Coding Level of Care Code 45642 IN/OBS CONSULT LVL 4,60M Diagnoses Primary osteoarthritis of left knee M17.12 Osteoarthritis type: primary Acute blood loss anemia D62 Chronic obstructive pulmonary disease J44.9 Sleep apnea G47.30 On home oxygen therapy Z99.81 (1) Osteoarthritis of left knee Osteoarthritis type: primary Qualified Code(s): M17.12 - Unilateral primary osteoarthritis, left knee
[2024-04-09] MEDS: POLYETHYLENE (MIRALAX) 17 GM PACK PO PRN (17:44)
[2024-04-09] MEDS: MAGNESIUM HYDROXIDE SUSP 30 ML UDC PO PRN (23:41)
--- NOTE | 2024-04-10 07:58 | Orthopedic Progress Note ---
Date of Service April 10, 2024 Assessment & Plan (1) Tibial plateau fracture, left: Plan: POD #[address] Jacobsen on 04/08/24 -Patient is doing well, vital signs have remained stable and pain is controlled -ABLA stable at 9.7, same as yesterday and similar to other post-op values -Hemovac drain output: 175mL since yesterday, will remove today -Continue current pain control -WBAT, PT/OT -DVT ppx: Eliquis, TEDs/SCDs -Discharge planning: patient hoping to go home with home health, requesting tomorrow due to transport and weather Followup in the office with Dr. Jacobsen in 2 weeks (2) Osteoarthritis of left knee: Admission and Anticipated Discharge Date Admission Date: April 08, 2024 Subjective Patient doing well this morning POD#[address] Jacobsen. States leg is a bit sore but pain has been controlled on current regimen. She has been able to get up and out of bed, doing better with this today. Requesting to go home tomorrow. Physical Exam Physical Exam: Resting in bed, no acute distress Musculoskeletal: LLE: Dressings clean, dry and intact. Hemovac drain intact, minimal output. Compartments soft and compressible. Able to lift her leg off of the bed. Dorsi/plantar flexion intact. DP pulse intact, NVI Results & Data Vital Signs (Past 12 Hours) Vital Signs O2 Del Method O2 Flow Rate 04/09/24 21:55 Nasal Cannula 4 Laboratory Results Laboratory Tests 04/10/24 07:33 WBC 9.16 RBC 3.10 L Hgb 9.7 L Hct 29.0 L (1) Tibial plateau fracture, left Encounter type: initial encounter Fracture type: closed Qualified Code(s): S82.142A - Displaced bicondylar fracture of left tibia, initial encounter for closed fracture (2) Osteoarthritis of left knee Osteoarthritis type: primary Qualified Code(s): M17.12 - Unilateral primary osteoarthritis, left knee
[2024-04-10 07:59] LABS: Hemoglobin 9.7 g/dl (12.0-16.0); Mean Corpuscular Hemoglobin 31.3 pg (25.0-34.0); Mean Corpuscular Hgb Conc 33.4 g/dL (32.0-36.0); Mean Corpuscular Volume 93.5 fL (80.0-100.0); Mean Platelet Volume 9.5 fL (9.4-12.4); Platelet Count 246 K/uL (130-400); RDW Coefficient of Variation 13.5 % (11.5-14.5); RDW Standard Deviation 46.2 fL (36.4-46.3); White Blood Count 9.16 K/ul (4.8-10.8)
[2024-04-10 08:28] LABS: BUN Creatinine Ratio 22.2 (10-20); Calcium 9.5 mg/dl (8.6-10.3); Creatinine Clr Calc Pharmacy 85.3 ml/min; Potassium 4.1 mmol/L (3.5-5.1)
--- NOTE | 2024-04-10 15:51 | Hospitalist Progress Note ---
"Date of Service April 10, 2024 Assessment & Plan (1) Osteoarthritis of left knee: (2) Acute blood loss anemia: (3) Chronic obstructive pulmonary disease: (4) Sleep apnea: (5) On home oxygen therapy: Plan Florencia is a 63F with a PMHx of bicuspid aortic valve, sleep apnea on CPAP, COPD with chronic oxygen therapy (4L), obesity, HLD, HTN, RA, bipolar disorder who presents the hospital for elective knee surgery with Dr. Jacobsen. Hospitalist were consulted for medical management. S/P knee surgery | Acute Blood Loss Anemia Left TKA with Dr. Jacobsen 04/08 DVT proph, pain control, abx and discharge planning per primary team. -would NOT recommend Celebrex while taking Eliquis, increased risk for GI bleed EBL 50, drain in place. Hgb drop to 9.7, was 12.2 prior. This is similar to her prior post-op values - remains stable. COPD on chronic oxygen therapy | MAGNOLIA At her baseline, 4L continue inhalers Continue CPAP Chronic low back pain Follows with pain management, on gabapentin 800mg QID CrCl 64 - max dose should be 1800mg daily in 3 divided doses, discussed with patient and she does not want to decrease her dose, state will talk to pain management. CrCl improve to 85.3 but most recording in our system are lower, will defer to pain management for dose adjustments. HTN - continue irbesartan and metoprolol. Okay to continue HCTZ, kidney function okay. Mental Health - continue abilify, duloxetine Obesity - hold Zepbound RA - okay to continue sulfasalazine Dispo: medically stable, medicine will sign off. would NOT recommend Celebrex while taking Eliquis, increased risk for GI bleed Admission and Anticipated Discharge Date Admission Date: April 10, 2024 Supervising Physician Co-Signing Physician Notes PA Supervision Note: I did not personally see or examine the patient today, but I verified all oliveira points of TARA Caraballo's assessment and plan with the following exceptions/additions: None Subjective patient seen lying in bed this afternoon. Is concerned about her leg swelling that started after she had activity this afternoon. I encouraged her to ice this as she has not done so all day. Patient expresses frustration with still being in the hospital but then reminded her that she told me, my attending physician and orthopedics that she did not want to be discharged today. She confirms that she would not be able to get a ride home today given the weather and wants to go home tomorrow but still is frustrated that she has to be here until tomorrow. medically she is doing well, has no acute concerns. Review of Systems Review of Systems: All systems reviewed & are unremarkable except as noted in Subjective Physical Exam Physical Exam: General: NAD, VS as above, sitting up in bed, eating lunch Resp: normal respiratory effort, lungs clear to auscultation on 4L NC CV: RRR, no murmur, Abd: normal bowel sounds, non tender, soft Extremities: Moves all extremities, able to wiggle toes bilaterally. left knee slightly swollen compared to right Neuro: A&O x3, Results & Data Results & Data Vital Signs (Past 12 Hours) Vital Signs Temp Pulse Pulse Resp BP BP Pulse Ox 04/10/24 14:45 98.6 F 73 18 150/80 H 97 04/10/24 13:11 97 04/10/24 12:04 98.8 F 77 16 144/71 H 93 04/10/24 07:53 97.9 F 78 18 158/107 H 97 O2 Del Method O2 Flow Rate 04/10/24 14:45 Nasal Cannula 4 04/10/24 13:11 Nasal Cannula 04/10/24 12:04 Nasal Cannula 04/10/24 07:53 Nasal Cannula 4 Laboratory Results CBC and chemistry reviewed PG Care Time/CCT Total # of Minutes Spent Total Time Spent with Patient: Total time spent is greater than 50% in coordination of care (as documented) at patient's floor/unit and/or counseling patient: Coding Level of Care Code 21626 SUB INP/OBS CARE 2/35MIN Diagnoses Primary osteoarthritis of left knee M17.12 Osteoarthritis type: primary Acute blood loss anemia D62 Chronic obstructive pulmonary disease J44.9 Sleep apnea G47.30 On home oxygen therapy Z99.81 (1) Osteoarthritis of left knee Osteoarthritis type: primary Qualified Code(s): M17.12 - Unilateral primary osteoarthritis, left knee"
[2024-04-10] MEDS: FUROSEMIDE 20 MG TAB PO PRN (16:16)
[2024-04-10] MEDS: MELATONIN 3 MG TAB PO PRN (21:40)
--- NOTE | 2024-04-11 07:43 | Orthopedic Progress Note ---
Date of Service April 11, 2024 Assessment & Plan (1) Tibial plateau fracture, left: Plan: POD #[address] Jacobsen on 04/08/24 -Patient is doing well, vital signs have remained stable and pain is controlled -Continue current pain control -WBAT, PT/OT -DVT ppx: Eliquis, TEDs/SCDs -Discharge planning: Discharge home with home health today. We discussed the patient's pain medication. She has been getting Tylenol 1000 mg every 8 hours and as needed oxycodone while inpatient. She will continue that at home. However, if she continues to have pain in the knee as well as her chronic low back pain, she may return to her Percocet 7.5 mg and continue with the prescription she is given on a regular basis. Followup in the office with Dr. Jacobsen in 2 weeks (2) Osteoarthritis of left knee: Admission and Anticipated Discharge Date Admission Date: April 10, 2024 Subjective Patient is doing well postop day #3 from a left total knee arthroplasty. States the knee is sore but overall the pain is controlled. She has been ambulating well and participating in physical therapy. States her daughter is coming later today to take her home after discharge. Physical Exam Constitutional: WD/WN, vitals as above no acute distress Musculoskeletal: Knee: + surgical incision (Left knee ANDREA dressing is in place and functioning. C/D/I); knee normal to inspection, no skin erythema, no ecchymosis and no surgical drain present Skin: no rashes, warm and dry Trauma: no evidence of skin trauma Neurologic: normal touch/pain/proprioception (Left ankle dorsiflexion intact.) Psychiatric: A+Ox3, euthymic affect Speech: normal rate/rhythm/volume of speech Results & Data Vital Signs (Past 12 Hours) Vital Signs Temp Pulse Resp BP Pulse Ox O2 Del Method O2 Flow Rate 04/10/24 19:55 36.5 C 80 18 176/82 H 94 Nasal Cannula 4 (1) Tibial plateau fracture, left Encounter type: initial encounter Fracture type: closed Qualified Code(s): S82.142A - Displaced bicondylar fracture of left tibia, initial encounter for closed fracture (2) Osteoarthritis of left knee Osteoarthritis type: primary Qualified Code(s): M17.12 - Unilateral primary osteoarthritis, left knee
[2024-04-11 07:44] VITALS: BP 139/78; PULSE 75; RESP 16; TEMP 98.4; O2SAT 93
[2024-04-11] MEDS ORDERED: ALBUTEROL HFA 8 GM INHALER INH PRN (08:39)
--- NOTE | 2024-04-13 10:57 | Discharge Summary ---
Date of Service April 13, 2024 Admission HPI Per Admitting Provider 63-year-old female with acute progressive left knee pain with known osteoarthritis of the knee history of injections and conservative management. Weight loss recommended prior to knee replacement however patient developed the medial tibial plateau stress fracture now with comminuted fracture medial tibia with collapse posterior medial tibial plateau. Patient denies headaches, sweats, fevers, chills, double vision, blurred vision, cough, sore throat, dysphagia, chest pain, sob at rest, wheezing, n/v/d/c, numbness, tingling, fatigue, urinary symptoms. ROS positive for bicuspid aortic valve with heart murmur with asthma chronic cough COPD uses CPAP and oxygen. Shortness of breath with activity arthritis multiple joints including spine chronic back pain obesity on diet medication. Principal Diagnosis Left knee osteoarthritis Left knee tibial plateau fracture Discharge Exam Constitutional WD/WN, vitals as above no acute distress Musculoskeletal Knee: + surgical incision (Left knee ANDREA dressing is in place and functioning. C/D/I); knee normal to inspection, no skin erythema, no ecchymosis and no surgical drain present Skin no rashes, warm and dry Trauma: no evidence of skin trauma Neurologic normal touch/pain/proprioception (Left ankle dorsiflexion intact.) Psychiatric A+Ox3, euthymic affect Speech: normal rate/rhythm/volume of speech Discharge Data Allergies Allergy/AdvReac Type Severity Reaction Status Date / Time levofloxacin [From Levaquin] Allergy Intermediate Rash Verified 04/08/24 09:26 clarithromycin [From Biaxin] AdvReac Mild Gastrointestinal Verified 04/08/24 09:26 Upset lamotrigine [From Lamictal] AdvReac Mild TREMORS Verified 04/08/24 09:26 perphenazine AdvReac Mild TREMORS Verified 04/08/24 09:26 erythromycin base AdvReac unable to Verified 04/08/24 09:26 urinate Consultations 04/08/24 17:10 Consult Hospitalist Routine Procedures Performed Operation Date: 04/08/24 10:20 Actual Procedures p Difficult Primary Left Total Knee Arthroplasty with Revision Tibial Component with Medial Augment(Left) - Prabhjot Jacobsen MD Ordered Studies 04/08/24 05:00 US - OR guided needle placemen Routine Hospital Course (1) Tibial plateau fracture, left: POD #[address] Jacobsen on 04/08/24 -Patient is doing well, vital signs have remained stable and pain is controlled -Continue current pain control -WBAT, PT/OT -DVT ppx: FELIZ Quinteross/SCDs -Discharge planning: Discharge home with home health today. We discussed the patient's pain medication. She has been getting Tylenol 1000 mg every 8 hours and as needed oxycodone while inpatient. She will continue that at home. However, if she continues to have pain in the knee as well as her chronic low back pain, she may return to her Percocet 7.5 mg and continue with the prescription she is given on a regular basis. Followup in the office with Dr. Jacobsen in 2 weeks (2) Osteoarthritis of left knee: Total Time Total Time Spent Total Time Spent (In Minutes): 40 Discharge Plan Discharge Items Patient Disposition: Home - Home Health Services Reason For Visit: Osteoarthritis Knee Left Discharge Diagnosis: left knee osteoarthritis left tibial plateau fracture Activity: Per Instructions section Activity Comment: May WBAT LLE Non-emergency contact: Surgeon Call non-emergency contact if: your pain is not controlled, your pain is worsening and your temperature is above 101.5 Follow-up/Referrals: Prabhjot Jacobsen MD [Surgeon] - Allegra Novoa M.D. [Primary Care Provider] - ([facility] AT PCP OFFICE STATES THEY WILL CALL THE PATIENT FOR A HOSPITAL FOLLOW UP.) Diet: Regular Addtl Attending Provider Instructions: ACTIVITY RECOMMENDATIONS: SELF CARE INSTRUCTIONS AFTER TOTAL KNEE REPLACEMENT A. You may need to continue a physical therapy program after discharge from the hospital. There are several options available to you. Your doctor will assist you in selecting the best one for you. 1. An out-patient facility 3 times a week for therapy. 2. Home therapy for 1 to 2 weeks with outpatient therapy to follow. 3. Continue working on all exercises taught by physical therapy three times a day for 20 minutes on non-therapy days. Your goals should be to increase the bending of your knee to 90 degrees and beyond and to fully straighten your knee. Ice and elevate knee after exercise. B. Weight as tolerated with a walker or as instructed by your physician. C. It is okay to shower if minimal to no drainage from incision. No Baths. Do not soak wound. D. Make walking a part of your daily routine. Be up as much as comfortable with rest periods throughout the day. Rest with leg elevation is very important. Use the ice wrap frequently for the first 3-4 weeks. E. There are no restrictions on activities. You may ride in a car, shop, participate in warehouse team member and all social activities. F. Wear the long elastic stockings (FELIZ hose) 20 hours a day for one month after surgery. They can be removed several times a day for laundering and when showering. G. You may return to previous diet. H. ANDREA dressing: You have a ANDREA dressing on your surgical wound. It will remain in place for 7 days from surgery. You will be provided with a booklet with the do's and don'ts with the dressing in place. After 7 days, the dressing may be removed. If there is drainage from the surgical incision, you may cover the wound with dry dressings SPECIAL CARE INSTRUCTIONS: VERY IMPORTANT TO READ AND REVIEW A. Take Coumadin, Xarelto, Aspirin or Lovenox (blood thinning medications) as directed by your doctor. If on Coumadin, have a pro-time (blood test) drawn according to your doctor's instructions. This will tell the doctor how well the Coumadin is thinning your blood. B. There are a few signs you need to watch for after you are home. Call [facility] if you notice any of the followin. Increased severe knee pain. Some pain is expected especially when you exercise. 2. Increased swelling in your leg or knee; pain or swelling of the calf muscle in either lower leg. 3. Any redness or fluid drainage from the incision. 4. Shortness of breath or chest pain. 5. A Temperature of 101 degrees F or greater. C. Please call [facility] at if you have any concerns or questions about your operation or recovery. The doctor or his nurse will return your call promptly. D. You must take antibiotics before dental work, bladder, bowel or other surgery. Your doctor will provide you with a permanent care to carry describing this precaution. FOLLOW UP VISIT: If appointment is not already scheduled: Please call [facility] to make a follow-up appointment for 2 weeks after your surgery at . Addtl Extruder Operator Vertical Provider Instructions: Hospital Medicine: * please discuss your kidney function and your gabapentin dose with your PCP/pain management. It seems to fluctuate but your CrCl is often lower that would recommend a lower dose. * Would NOT recommend Celebrex while taking Eliquis, increased risk for GI bleed Pending Studies at Discharge: No Stand-Alone Forms: My [facility], Smoking Cessation Medications and DC Order Prescriptions: New celecoxib [Celebrex] 200 mg capsule 200 mg PO Q12H Qty: 60 0RF cefadroxil 500 mg capsule 500 mg PO Q12H Qty: 28 0RF oxycodone 5 mg tablet 5 mg PO Q4H PRN (Reason: pain) Qty: 20 0RF acetaminophen [Tylenol Extra Strength] 500 mg tablet 1,000 mg PO Q8H Qty: 90 0RF Eliquis 2.5 mg tablet 2.5 mg PO BID Qty: 28 0RF Continued montelukast [Singulair] 10 mg Tablet 10 mg PO QAM sulfasalazine [Azulfidine] 500 mg Tablet 1,000 mg PO BID Hold Instructions: Resume on 09/30/22. Rx Instructions: give with food (meal/snack) metoprolol succinate [Toprol XL] 50 mg Tablet Extended Release 24 Hr 100 mg PO QAM calcium carbonate-vitamin D3 600 mg-5 mcg (200 unit) Tablet 2 tab PO HS folic acid 1 mg Tablet 5 mg PO QAM magnesium 250 mg Tablet 500 mg PO HS albuterol sulfate 90 mcg/actuation Hfa Aerosol Inhaler 1 inh INHALATION QID PRN (Reason: sob) irbesartan 300 mg Tablet 300 mg PO QAM aripiprazole [Abilify] 5 mg Tablet 5 mg PO QAM zinc 50 mg Capsule 50 mg PO HS Rx Instructions: administer on empty stomach, at least 1 hour before or after meal(s) levocetirizine 5 mg Tablet 5 mg PO HS cholecalciferol (vitamin D3) [Vitamin D3] 50 mcg (2,000 unit) Tablet 50 mcg PO HS Multivitamin Women 50 Plus 8 mg iron-400 mcg-300 mcg Tablet 1 tab PO QAM Privigen 10 % Solution 1 g IV Q30D Rx Instructions: once monthly infusion (home nursing) hydrochlorothiazide 25 mg Tablet 25 mg PO QAM naloxone [Narcan] 4 mg/actuation spray,non-aerosol 1 spray intranasal Q3M PRN (Reason: opioid overdose) Qty: 2 0RF potassium 99 mg Tablet 198 mg PO HS gabapentin 800 mg Tablet 800 mg PO QID lactase [Lactaid] 3,000 unit Tablet 3,000 unit PO AC PRN (Reason: Lactose Intolerance) Rx Instructions: administer with first bite of dairy food furosemide 20 mg Tablet 20 mg PO UD PRN (Reason: Edema) bisacodyl 5 mg Tablet 25 mg PO HS duloxetine 20 mg Capsule,Delayed Release(Dr/Ec) 20 mg PO QAM Asmanex Twisthaler 220 mcg/ actuation (120) Aerosol Powdr Breath Activated 2 inh INHALATION BID Stiolto Respimat 2.5-2.5 mcg/actuation mist 2 puff INHALATION QAM Evenity 1 dose INJ Q30D Zepbound 5 mg/0.5 mL Solution SUBCUT WK Discontinued ibuprofen 200 mg Capsule 400 mg PO Q6H PRN (Reason: Pain) Patient Comments: takes 5x per day oxycodone-acetaminophen [Percocet] 7.5-325 mg Tablet 1 tab PO QID PRN (Reason: Pain) Discharge Orders: Discharge Order (Routine); Ordered 04/11/24 Ordered By: Davie Kumar Admission Data Admit Date/Time: 04/10/24 09:40 Attending Provider: Prabhjot Jacobsen Admit Provider: Prabhjot Jacobsen Primary Care Provider: Allegra Novoa Other Providers: Karlos Coronado Other Interventions: Discharge Summary Assessment (RN) Last Done: 04/11/24 09:59
== END 2024-04-11 12:13 | disposition home health service (06) | DRG 470 ==
LOC: 3E 07:55 → ASU 07:55 → 3E 04-10 18:31